=== PATIENT | female | born 1985 ===

== ENCOUNTER 2020-03-16 16:58 | Outpatient (REF) | payer OTHER, SELFPAY | END 2020-03-16 16:59 | disposition home or self-care (01) | LOC: HO.LAB 16:58 | PROVIDERS: Visit Provider Internal Medicine | DX: Z20.828 Contact with and (suspected) exposure to other viral communicable diseases (principal) | CPT/HCPCS: C9803; U0003 ==

== ENCOUNTER 2022-09-09 10:05 | Emergency (ER) | payer OTHER, SELFPAY ==
[2022-09-09 10:19] VITALS: BP 126/80; PULSE 102; RESP 18; TEMP 37.3; O2SAT 98; BMI 26.4
--- NOTE | 2022-09-09 10:24 | ED.GENADULT ---
HPI - General Adult General Chief complaint: Upper Respiratory Symptoms Stated complaint: headache, sore throat, abd pain Time Seen by Provider: 09/09/22 10:14 Source: patient Mode of arrival: ambulatory Limitations: no limitations History of Present Illness HPI narrative: Patient is a 36-year-old female presenting with 3 days of subjective fevers, body aches, fatigue, headache, sore throat, and nausea. She denies any abdominal pain or vomiting. She denies any cough or nasal congestion. Has been using throat spray as well as Tylenol with little relief. Denies any diarrhea or constipation. Denies any known sick contacts. MD complaint: Fever, body aches, sore throat Onset (ago): day(s) Quality: aching Pain Consistency: constant Associated symptoms: fever/chills, headaches and other (sore throat) Treatments prior to arrival: other (tylenol) Related Data Previous Rx's Medication Instructions Recorded acetaminophen 325 mg capsule 650 mg PO Q6H PRN fever or pain 09/09/22 #20 caps ondansetron 4 mg disintegrating 4 mg PO Q8H PRN nausea and 09/09/22 tablet vomiting #12 tabs Allergies Allergy/AdvReac Type Severity Reaction Status Date / Time oxycodone Allergy Itching Verified 09/09/22 10:21 Review of Systems Review of Systems: As per HPI. Yes all other systems are reviewed and are negative Constitutional: Constitutional: Reports as per HPI [facility] Past Medical History Medical History (Updated 09/09/22 @ 11:52 by Argentina Chi NP) No known health problems Social History Social History Alcohol intake: never Smoked in Last 30 Days: No Use of substances other than those prescribed or required for medical reasons: No Advance Directives: No Advance Directives Information Provided: No Patient : No Physical Exam ED Vital Signs: Vital Signs - 24 hr 09/09/22 10:19 Temperature 99.1 F Pulse Rate 102 H Respiratory Rate 18 Blood Pressure 126/80 Pulse Oximetry 98 Oxygen Delivery Method Room Air BMI result Body Mass Index 26.4 Vital signs have been reviewed and appear to be correct. Blood pressure normal. Heart rate slightly elevated. Respiratory rate normal. Temperature normal. Oxygen saturation normal. Const General: cooperative and no acute distress Orientation/consciousness: oriented to person, oriented to place, oriented to time and patient oriented x3 Limitations: no limitations HENMT Head: Yes normocephalic and Yes atraumatic Ears: external ears normal and TM's normal bilaterally General nose exam: Normal external nose present Face and sinus: Yes face symmetric Mouth: Normal oral and palatal mucosa present, oropharynx normal and moist mucous membranes Throat: Yes posterior oropharynx normal, Yes tonsils normal and Yes uvula midline Eyes Pupils: Equal, round and reactive pupils present Neck Neck: Yes normal visual inspection and Yes supple Resp Effort & Inspection: normal respiratory effort and able to speak in complete sentences Auscultation: clear to auscultation bilaterally Cardio Rate: regular rate Rhythm: regular rhythm Heart sounds: S1 normal heart sound present and S2 normal heart sound present GI Palpation (GI): Soft to palpation and nontender Auscultation: normoactive bowel sounds General: Yes no CVA tenderness Back/Spine/Pelvis Back: no CVA tenderness Skin General skin exam: elasticity normal and turgor normal Neuro General: oriented to person, oriented to place, oriented to time, patient oriented x3, moves all extremities, no focal motor deficits and CN's II-XI intact bilaterally Cranial nerves: Yes Equal, round and reactive pupils present Cognition (Neuro): normal cognition Extrem General: Yes full ROM, Yes no pedal edema and Yes no calf tenderness Psych Mental Status: mental status grossly normal Affect: normal affect Thought process: Normal thought process present Medications Administered Discontinued Medications Generic Name Dose Route Start Last Admin Trade Name Freq PRN Reason Stop Dose Admin Acetaminophen 975 mg 09/09/22 10:37 09/09/22 10:50 Acetaminophen 325 Mg Tablet PO 09/09/22 10:38 975 mg ONCE ONE Administration Ondansetron HCl 4 mg 09/09/22 10:37 09/09/22 10:50 Ondansetron Odt 4 Mg Tab.Rapdis TRANSLINGU 09/09/22 10:38 4 mg ONCE ONE Administration Medical Decision Making Medical Decision Making MDM Narrative: Patient is a 36-year-old female presenting with 3 days of subjective fevers, body aches, fatigue, headache, sore throat, and nausea. On exam patient is awake, A+Ox3, normal neurological exam without focal deficits, oropharynx normal, LS CTA throughout, ABD SNT. Concern for viral illness including Covid, influenza, RSV as well as strep pharyngitis. No meningismus. Less likely pneumonia, UTI/pyelonephritis. Will obtain Covid/flu/RSV and strep swabs, medicate with Tylenol and ondansetron. Covid, flu, RSV, and strep all negative, patient updated on results. Patient reports improvement in symptoms after Tylenol. Feel patient is stable for discharge home. Advised to alternate Tylenol and ibuprofen as needed for fever. Prescribed ondansetron as needed for nausea. Instructed patient to follow-up with PCP within the next 2 days. Return precautions discussed at bedside. All questions answered and patient verbalized understanding of plan. Differential Diagnosis Differential Diagnoses: The differential diagnosis associated with the presentation includes As above. Lab Data MDM Lab Attestation statement: I reviewed the patient's lab results. Labs: Lab Results 09/09/22 09/09/22 Range/Units 10:43 10:43 Influenza Type A (PCR) NEGATIVE (Negative) Influenza Type B (PCR) NEGATIVE (Negative) RSV RNA Qual (PCR) NEGATIVE (Negative) SARS-CoV-2 RNA (RT-PCR) NEGATIVE (Negative) S. pyogenes GrpA MARCO A Negative (Negative) External Record Review External record reviewed: Inpatient record, Office record and Outpatient record Prescription Management I considered prescription management with: Pain Medication Discharge Plan Discharge Clinical Impression: Viral infection Pharyngitis Qualifiers: Pharyngitis/tonsillitis etiology: unspecified etiology Qualified Code(s): J02.9 - Acute pharyngitis, unspecified Patient Disposition: Home, Self-Care Instructions: Pharyngitis (ED), Viral Syndrome (ED) Additional Instructions: You have been evaluated in the emergency department today for your sore throat, fever and body aches. Your evaluation suggests that your symptoms are likely due to a illness which should resolve in a few days with rest and fluids. You can take 650 mg Tylenol or 600 mg ibuprofen as needed for pain or fever. If necessary, you can alternate these medications every 3 hours. For example, at noon you can take ibuprofen, then at 3:00 p.m. you can take Tylenol, then at 6:00 p.m. you can take ibuprofen. Please follow-up with your primary care provider within 2 days. Return to the emergency department if you experience worsening or uncontrolled pain, difficulty swallowing, difficulty breathing, fevers 100.4? F or greater, recurrent vomiting, or any other concerning symptoms. Prescriptions: New ondansetron 4 mg tablet,disintegrating 4 mg PO Q8H PRN (Reason: nausea and vomiting) Qty: 12 0RF acetaminophen 325 mg capsule 650 mg PO Q6H PRN (Reason: fever or pain) Qty: 20 0RF
--- OUTSIDE RECORDS SUMMARY | 2022-09-09 10:41 | XMS_ITS | Continuity of Care Document ---
Author Name Unknown Organization [facility] Address [address] [place] [address]- Care Team Providers Care Greens Keeper Name Role Post Office ManagerFelix Denise MD Primary Care Physician [phone] Encounter [facility] Date(s): 11/18/20 - 11/25/20 [facility] [address], [place] [address] Encounter Diagnosis Acute cystitis(Discharge Diagnosis) - 11/18/20 Vaginal discharge(Discharge Diagnosis) - 11/18/20 Attending Physician: Ellis Penaloza DO Referring Physician: Felix Denise MD Allergies, Adverse Reactions, Alerts Substance Reaction Severity Status Rocephin Active oxyCODONE 1 Active 1itchy Immunizations Given and Recorded Vaccine Date Status Refusal Reason SARS-CoV-2 (COVID-19) mRNA BNT-162b2 vac 08/18/20 Recorded SARS-CoV-2 (COVID-19) mRNA BNT-162b2 vac 07/28/20 Recorded influenza virus vaccine, inactivated 04/28/16 Give n influenza virus vaccine, inactivated 02/18/15 Give n tetanus/diphtheria/pertussis, acel(Tdap) 07/16/15 Given Not Given Vaccine Date Status Refusal Reason influenza virus vaccine, inactivated 05/03/20 Not Given Patient Refuses pneumococcal 23-valent vaccine 05/03/20 Not Given Patient Refuses Medications acetaminophen/butalbital/caffeine 300 mg-50 mg-40 mg oral capsule 1 capsule, By Mouth, Every 4 hours, PRN NEEDED, # 10 capsule, 0 Refills, Maintenance, 09/23/20 15:01:00 EDT, [facility] #[id number], 1 capsule By Mouth Every 4 hours,PRN: NEEDED, 150, cm, 09/23/20 13:41:00 EDT, Height, 60.8, kg, 08/05/20 11:... Start Date: 09/23/20 Status: Ordered amitriptyline 25 mg oral tablet 50 mg, 2, tablet, By Mouth, Daily at bedtime, # 180 tablet, Refills 3, Tot. Refills 3, Maintenance,10/23/20 13:21:00 EDT, Route to Pharmacy Electronically, [facility] #[id number], 150, cm, 10/23/20 13:15:00 EDT, Height, 60.8, kg, 08/05/20 11:45:... Start Date: 10/23/20 Stop Date: 10/18/21 Status: Ordered cholecalciferol 2000 intl units oral capsule 1 capsule = 2,000 International_Units, By Mouth, Daily, # 90 capsule, 1 Refills, Maintenance, 01/28/20 7:32:00 EDT, Capsule, [facility] #[id number], 152.4, cm, 01/22/20 11:23:00 EDT, Height, 61.5, kg, 02/21/19 10:49:00 EST, Dry Weight Start Date: 01/28/20 Stop Date: 07/26/20 Status: Ordered Flonase 50 mcg/inh nasal spray 1 sprays, Nares, Both, 2 times a day, # 16 Gm, 2 Refills, Maintenance, 10/23/20 13:21:00 EDT, [place], [facility] #[id number], Partial fill upon patient request if the prescription is for a schedule II opioid drug., 1 sprays Nares, Both 2 times a d... Start Date: 10/23/20 Status: Ordered MiraLax oral powder for reconstitution = 17 Gm, By Mouth, Daily, dissolve in water before taking, # 255 Gm, 0 Refills, Maintenance, 10/23/20 13:22:00 EDT, REC Powder, [facility] #[id number], Partial fill upon patient request if the prescription is for a schedule II opioid drug., 17 Gm... Start Date: 10/23/20 Status: Ordered naproxen 500 mg oral delayed release tablet 1 tablet = 500 mg, By Mouth, 2 times a day, # 60 tablet, 2 Refills, Maintenance, 10/23/20 13:21:00 EDT, EC Tablet, [facility] #[id number], Partial fill upon patient request if the prescription is for a schedule II opioid drug., 150, cm, 10/23/20... Start Date: 10/23/20 Status: Ordered omeprazole 40 mg oral enteric coated capsule 1 capsule, By Mouth, 2 times a day, # 60 capsule, 1 Refills, Maintenance, 10/23/20 13:22:00 EDT, [facility] #[id number], 150, cm, 10/23/20 13:15:00 EDT, Height, 60.8, kg, 08/05/20 11:45:00 EDT, Dry Weight Start Date: 10/23/20 Status: Ordered propranolol 60 mg oral capsule, extended release 60 mg, 1, capsule, By Mouth, Daily, # 30 capsule, Refills 1, Tot. Refills 1, Maintenance, 10/23/20 13:54:00 EDT, Route to Pharmacy Electronically, [facility] #[id number], Partial fill upon patient request if the prescription is for a schedule II... Start Date: 10/23/20 Status: Ordered propranolol 60 mg oral capsule, extended release See Instructions, TAKE 1 CAPSULE BY MOUTH DAILY, # 90 capsule, Refills 0, Maintenance, InstructionsReplace Required Details, Route to Pharmacy Electronically, [facility] #[id number], 150, cm, 10/23/20 13:44:00 EDT, Height, 60.8, kg, 08/05/20 11:... Start Date: 10/23/20 Status: Ordered SUMAtriptan 25 mg oral tablet 1 tablet = 25 mg, By Mouth, Once, At onset of headache. May repeat in 2 hours, # 18 tablet, 0 Refills, Soft Stop, 10/23/20 13:55:00 EDT, Tablet, [facility] #[id number], Partial fill upon patientrequest if the prescription is for a schedule II op... Start Date: 10/23/20 Status: Ordered Tylenol 325 mg oral capsule 2 capsule = 650 mg, By Mouth, Every 4 hours, PRN as needed for fever, # 90 capsule, 0 Refills, Maintenance, 10/23/20 13:20:00 EDT, Capsule, [facility] #[id number], Partial fill upon patient request if the prescription is for a schedule II opioid... Start Date: 10/23/20 Status: Ordered ZyrTEC 10 mg oral tablet 1 tablet = 10 mg, By Mouth, Daily, # 30 tablet, 3 Refills, Maintenance, 10/23/20 13:21:00 EDT, Tablet, [facility] #[id number], 150, cm, 10/23/20 13:15:00 EDT, Height, 60.8, kg, 08/05/20 11:45:00EDT, Dry Weight Start Date: 10/23/20 Status: Ordered Problem List Condition Effective Dates Status Health Status Inform ant Back pain(Confirmed) Active Renal stones(Confirmed) Active Migraine(Confirmed) Active Diagnosis Diagnosis Type Effective Dates Health Status Cl inical Service Informant Acute cystitis Discharge Diagnosis 11/18/20 Vaginal discharge Discharge Diagnosis 11/18/20 Vital Signs Most recent to oldest [Reference Range]: 1 Height 150 cm (11/18/20 4:25 PM) Weight 60.2 kg (11/18/20 4:25 PM) Oxygen Saturation [94-100 %] 100 % (11/18/20 4:25 PM) Pulse Rate [55-90 bpm] 81 bpm (11/18/20 4:25 PM) Body Mass Index [18.5-24.99] 26.76 *H* (11/18/20 4:25 PM) Blood Pressure [90-138/55-84 mm Hg] 147/ 90mm Hg *H* (11/18/20 4:25 PM) Temperature [96.8-100.4 DegF] 98.7 DegF (11/18/20 4:25 PM) Mode of Delivery (Oxygen) Room air (11/18/20 4:25 PM) Blood pressure sites Arm, right (11/18/20 4:25 PM) Temperature Route Temporal (11/18/20 4:25 PM) Dry Weight 60.2 kg (11/18/20 4:25 PM) Weight Obtained Via Standing scale (11/18/20 4:25 PM) Dry Weight Obtained Via Standing scale (11/18/20 4:25 PM) Social History Social History Type Response Smoking Status Never smoker entered on: 07/28/15 Sex Female
--- OUTSIDE RECORDS SUMMARY | 2022-09-09 10:41 | XMS_ITS | Continuity of Care Document ---
Author Name Unknown Organization [facility] Address [address] [place] [address]- Care Team Providers Care Sheep Sorter Name Role Phone Prior Wesly GRAYSON Primary Care Physician Encounter [facility] Date(s): 03/23/20 - 04/22/[address] [address]- Allergies, Adverse Reactions, Alerts Substance Reaction Severity Status NKA Active Immunizations Given and Recorded Vaccine Date Status Refusal Reason influenza virus vaccine, inactivated 04/28/16 Give n influenza virus vaccine, inactivated 02/18/15 Give n tetanus/diphtheria/pertussis, acel(Tdap) 07/16/15 Given Medications acetaminophen/butalbital/caffeine 300 mg-50 mg-40 mg oral capsule 1 capsule, By Mouth, Every 4 hours, PRN NEEDED, # 20 capsule, 0 Refills, Maintenance, 04/26/20 18:43:00 EST, [id number], 1 capsule By Mouth Every 4 hours,PRN: NEEDED, 152.4, cm,01/22/20 11:23:00 EDT, Height, 61.5, kg, 02/21/19 1... Start Date: 04/26/20 Status: Ordered acetaminophen/butalbital/caffeine 300 mg-50 mg-40 mg oral capsule 1 capsule, By Mouth, Every 4 hours, PRN NEEDED, for 30 days, appt needed for refill; 1 to 2 tablets or capsules every 4 hours as needed; not to exceed 6 tablets or capsules daily., # 2 capsule, 0 Refills, Acute 04/26/20 18:43:00 EST, 03/27/20 18:43... Start Date: 03/27/20 Stop Date: 04/26/20 Status: Ordered amitriptyline 25 mg oral tablet 50 mg, 2, tablet, By Mouth, Daily at bedtime, # 180 tablet, Refills 3, Tot. Refills 3, Maintenance,03/22/20 17:53:00 EST, Route to Pharmacy Electronically, [facility] #[id number], 152.4, cm, 01/22/20 11:23:00 EDT, Height, 61.5, kg, 02/21/19 10:4... Start Date: 03/22/20 Stop Date: 03/17/21 Status: Ordered [place] Saline Mist 0.65% nasal spray 2 sprays, Nares, Both, 4 times a day, # 45 mL, 0 Refills, Maintenance, 03/19/20 10:33:00 EST, [facility] #[id number], Partial fill upon patient request if the prescription is for a schedule II opioid drug., 2 sprays Nares, Both 4 times a day, 152... Start Date: 03/19/20 Status: Ordered cholecalciferol 2000 intl units oral capsule 1 capsule = 2,000 International_Units, By Mouth, Daily, # 90 capsule, 1 Refills, Maintenance, 01/28/20 7:32:00 EDT, Capsule, [facility] #[id number], 152.4, cm, 01/22/20 11:23:00 EDT, Height, 61.5, kg, 02/21/19 10:49:00 EST, Dry Weight Start Date: 01/28/20 Stop Date: 07/26/20 Status: Ordered dextromethorphan-guaifenesin 10 mg-200 mg/5 mL oral liquid 5 mL, By Mouth, Every 6 hours, PRN for cough, # 200 mL, 0 Refills, Maintenance, 03/19/20 10:35:00 EST, [place], [facility] #[id number], Partial fill upon patient request if the prescription is for a schedule II opioid drug., 5 mL By Mouth Every 6... Start Date: 03/19/20 Status: Ordered ibuprofen 200 mg oral tablet 400 mg, 2, tablet, By Mouth, Every 6 hours, # 100 tablet, Refills 0, Tot. Refills 0, Maintenance, 03/19/20 10:32:00 EST, Route to Pharmacy Electronically, [facility] #[id number], Partial fill upon patient request if the prescription is for a sche... Start Date: 03/19/20 Status: Ordered omeprazole 40 mg oral enteric coated capsule 1 capsule = 40 mg, By Mouth, 2 times a day, # 60 capsule, 2 Refills, Maintenance, 03/25/20 9:29:00 EST, CR Capsule, [facility] #[id number], 152.4, cm, 01/22/20 11:23:00 EDT, Height, 61.5, kg, 02/21/19 10:49:00 EST, Dry Weight Start Date: 03/25/20 Stop Date: 06/23/20 Status: Ordered ondansetron 4 mg oral tablet 1 tablet = 4 mg, By Mouth, Every 8 hours, # 90 tablet, 0 Refills, Maintenance, 03/30/20 9:51:00 EST, Tablet, [facility] #[id number], Partial fill upon patient request if the prescription is for a schedule II opioid drug., 152.4, cm, 01/22/20 11:2... Start Date: 03/30/20 Status: Ordered Tylenol 325 mg oral capsule 2 capsule = 650 mg, By Mouth, Every 4 hours, PRN as needed for fever, # 90 capsule, 0 Refills, Maintenance, 03/19/20 10:31:00 EST, Capsule, [facility] #[id number], Partial fill upon patient request if the prescription is for a schedule II opioid... Start Date: 03/19/20 Status: Ordered ZyrTEC 10 mg oral tablet 1 tablet = 10 mg, By Mouth, Daily, # 30 tablet, 3 Refills, Maintenance, 09/30/19 14:57:00 EDT, Tablet, [facility] #[id number], 152.4, cm, 04/09/19 11:38:00 EST, Height, 61.5, kg, 02/21/19 10:49:00 EST, Dry Weight Start Date: 09/30/19 Status: Ordered Problem List Condition Effective Dates Status Health Status Inform ant Back pain(Confirmed) Active Renal stones(Confirmed) Active Migraine(Confirmed) Active Social History Social History Type Response Smoking Status Never smoker entered on: 07/28/15 Sex Female
--- OUTSIDE RECORDS SUMMARY | 2022-09-09 10:41 | XMS_ITS | Continuity of Care Document ---
Author Name Unknown Organization [facility] ter Address [address] [place] [id number]- Care Team Providers Care Greenhouse Assistant Name Role Phone Prior Wesly GRAYSON Primary Care Physician [phone] En[place] [facility] [id number] Date(s): 05/08/20 - 05/09/[address] [address]- Encounter Diagnosis Pelvic inflammatory disease(Final) - 05/09/20 Discharge Disposition: A-D/C Home Attending Physician: Wanda Briones MD Admitting Physician: Wanda Briones MD Referring Physician: Not on Staff, Referring MD Allergies, Adverse Reactions, Alerts Substance Reaction [...] 20 capsule, 0 Refills, Maintenance, 04/26/20 18:43:00 [facility], [facility] #[id number], 1 capsule By Mouth Every 4 hours,PRN: NEEDED, 152.4, cm,01/22/20 11:23:00 EDT, Height, 61.5, kg, 02/21/19 1... Start Date: 04/26/20 Status: Ordered amitriptyline 25 mg oral tablet 50 mg, 2, tablet, By Mouth, Daily at bedtime, # 180 tablet, Refills 3, Tot. Refills 3, Maintenance,03/22/20 17:53:00 EST, Route to Pharmacy Electronically, [facility] #[id number], 152.4, cm, 01/22/20 11:23:00 EDT, Height, 61.5, kg, 02/21/19 10:4... Start Date: 03/22/20 Stop Date: 03/17/21 Status: Ordered [place] Saline Mist 0.65% nasal spray 2 sprays, Nares, Both, 4 times a day, # 45 mL, 0 Refills, Maintenance, 03/19/20 10:33:00 EST, [facility] #[id number], Partial fill upon patient request if the prescription is for a schedule II opioid drug., 2 sprays Nares, Both 4 times a day, 152... Start Date: 03/19/20 Status: Ordered cholecalciferol 2000 intl units oral capsule 1 capsule = 2,000 International_Units, By Mouth, Daily, # 90 capsule, 1 Refills, Maintenance, 01/28/20 7:32:00 EDT, Capsule, [facility] #[id number], 152.4, cm, 01/22/20 11:23:00 EDT, Height, 61.5, kg, 02/21/19 10:49:00 EST, Dry Weight Start Date: 01/28/20 Stop Date: 07/26/20 Status: Ordered dextromethorphan-guaifenesin 10 mg-200 mg/5 mL oral liquid 5 mL, By Mouth, Every 6 hours, PRN for cough, # 200 mL, 0 Refills, Maintenance, 03/19/20 10:35:00 EST, Liquid, [facility] #[id number], Partial fill upon patient request if the prescription is for a schedule II opioid drug., 5 mL By Mouth Every 6... Start Date: 03/19/20 Status: Ordered doxycycline hyclate 100 mg oral capsule 1 capsule = 100 mg, By Mouth, 2 times a day, for 14 days, # 28 capsule, 0 Refills, Acute 05/23/20 1:06:00 EST, 05/09/20 1:06:00 EST, Capsule, [facility] #[id number], Partial fill upon patient request if the prescription is for a schedule II opioi... Start Date: 05/09/20 Stop Date: 05/23/20 Status: Ordered ibuprofen 200 mg oral tablet 400 mg, 2, tablet, By Mouth, Every 6 hours, # 100 tablet, Refills 0, Tot. Refills 0, Maintenance, 03/19/20 10:32:00 EST, Route to Pharmacy Electronically, [facility] #[id number], Partial fill upon patient request if the prescription is for a sche... Start Date: 03/19/20 Status: Ordered levoFLOXacin 750 mg oral tablet 1 tablet = 750 mg, By Mouth, Every 24 hours, for 5 days, # 5 tablet, 0 Refills, Acute 05/10/20 9:00:00 EST, 05/05/20 9:00:00 EST, Tablet, [facility] #[id number], Partial fill upon patient request if the prescription is for a schedule II opioid dr... Start Date: 05/05/20 Stop Date: 05/10/20 Status: Ordered metroNIDAZOLE 500 mg oral tablet 1 tablet = 500 mg, By Mouth, Every 12 hours, for 14 days, # 28 tablet, 0 Refills, Acute 05/23/20 1:07:00 EST, 05/09/20 1:07:00 EST, Tablet, [facility] #[id number], Partial fill upon patient request if the prescription is for a schedule II opioid... Start Date: 05/09/20 Stop Date: 05/23/20 Status: Ordered MiraLax oral powder for reconstitution = 17 Gm, By Mouth, Daily, dissolve in water before taking, # 255 Gm, 0 Refills, Maintenance, 05/04/20 12:19:00 EST, REC Powder, [facility] #[id number], Partial fill upon patient request if the prescription is for a schedule II opioid drug., 17 Gm... Start Date: 05/04/20 Status: Ordered MorPHINE REGULAR STRENGTH 2 mg/mL Liquid 10 mg, Solution, By Mouth, Once, STAT, 05/08/20 22:26:00 EST, Stop date 05/08/20 22:26:00 EST Start Date: 05/08/20 Stop Date: 05/08/20 Status: Completed omeprazole 40 mg oral enteric coated capsule 1 capsule = 40 mg, By Mouth, 2 times a day, # 60 capsule, 2 Refills, Maintenance, 03/25/20 9:29:00 EST, CR Capsule, [facility] #[id number], 152.4, cm, 01/22/20 11:23:00 EDT, Height, 61.5, kg, 02/21/19 10:49:00 EST, Dry Weight Start Date: 03/25/20 Stop Date: 06/23/20 Status: Ordered ondansetron 4 mg oral tablet, disintegrating 1 tablet = 4 mg, By Mouth, Every 8 hours, PRN as needed for nausea/vomiting, # 30 tablet, 0 Refills, Maintenance, 04/28/20 5:09:00 EST, DIS Tablet, [facility] #[id number], Partial fill upon patient request if the prescription is for a schedule II... Start Date: 04/28/20 Stop Date: 05/05/20 Status: Ordered traMADol 50 mg oral tablet 1 tablet = 50 mg, By Mouth, Every 6 hours, PRN Pain , Severe, for 3 days, TAKE 1 TABLET BY MOUTH EVERY 6 HOURS FOR 3 DAYS NEEDED FOR PAIN, # 12 tablet, 0 Refills, Acute 05/11/20 7:59:00 EST, 05/08/20 7:59:00 EST, Tablet, [facility] #[id number]... Start Date: 05/08/20 Stop Date: 05/11/20 Status: Ordered Tylenol 325 mg oral capsule 2 capsule = 650 mg, By Mouth, Every 4 hours, PRN as needed for fever, # 90 capsule, 0 Refills, Maintenance, 03/19/20 10:31:00 EST, Capsule, [facility] #[id number], Partial fill upon patient request if the prescription is for a schedule II opioid... Start Date: 03/19/20 Status: Ordered ZyrTEC 10 mg oral tablet 1 tablet = 10 mg, By Mouth, Daily, # 30 tablet, 3 Refills, Maintenance, 09/30/19 14:57:00 EDT, Tablet, [facility] #[id number], 152.4, cm, 04/09/19 11:38:00 EST, Height, 61.5, kg, 02/21/19 10:49:00 EST, Dry Weight Start Date: 09/30/19 Status: Ordered Problem List Condition Effective Dates Status Health Status Inform ant Back pain(Confirmed) Active COVID-19(Confirmed) 1, 2 Active Renal stones(Confirmed) Active Migraine(Confirmed) Active 1clinical diagnosis March 2020; unconfirmed by testing, see external record [id number]: Resolved due to 21 days post identification. Results Orders for Microbiology Reports Name Date Wet Prep 05/08/20 Microbiology Reports TEST:Wet Prep STATUS:Modified/Amended/Corrected BODY SITE: SOURCE:VAGINA COLLECTED DATE/TIME:05/08/20 11:50 PM Wet Prep SPECIMEN DESCRIPTION : VAGINAL SPECIMEN SPECIAL REQUESTS : NONE DIRECT EXAM : 4+ WHITE BLOOD CELLS 2+ CLUE CELLS NO YEAST OBSERVED NO TRICHOMONAS OBSERVED REPORT STATUS : FINAL 05/09/2020 Vital Signs Most recent to oldest [Reference Range]: 1 2 3 Oxygen Saturation [94-100 %] 99 % (05/09/20 1:28 AM) 98 % (05/08/20 11:16 PM) 98 % (05/08/20 7:40 PM) Pulse Rate [55-90 bpm] 109 bpm *H* (05/09/20 1:28 AM) 90 bpm (05/08/20 11:16 PM) 100 bpm *H* (05/08/20 7:40 PM) Blood Pressure [90-138/55-84 mm Hg] 140/89mm Hg *H* (05/09/20 1:28 AM) 122/76mm Hg (05/08/20 11:16 PM) 132/87mm Hg (05/08/20 7:40 PM) Respiratory Rate [16-30 br/min] 18 br/min (05/09/20 1:28 AM) 16 br/min (05/08/20 11:40 PM) 18 br/min (05/08/20 11:16 PM) Temperature [96.8-100.4 DegF] 97.8 DegF (05/09/20 1:28 AM) 98.1 DegF (05/08/20 11:16 PM) 98.1 DegF (05/08/20 7:40 PM) Mode of Delivery (Oxygen) Room air (05/09/20 1:28 AM) Room air (05/08/20 11:16 PM) Room air (05/08/20 7:40 PM) Blood pressure sites Arm, left (05/09/20 1:28 AM) Arm, left (05/08/20 11:16 PM) Arm, left (05/08/20 7:40 PM) Temperature Route Oral (05/09/20 1:28 AM) Oral (05/08/20 11:16 PM) Oral (05/08/20 7:40 PM) Social History Social History Type Response Smoking Status Never smoker entered on: 07/28/15 Sex Female
--- OUTSIDE RECORDS SUMMARY | 2022-09-09 10:42 | XMS_ITS | Continuity of Care Document ---
Author Name Unknown Organization [facility] Address [address] [place] [address]- Care Team Providers Care Art Objects Salesperson Name Role Senior Finance ManagerFelix Denise MD Primary Care Physician Encounter [facility] [place] Date(s): 10/26/20 - 11/25/[address] [address] Allergies, Adverse Reactions, Alerts Substance Reaction Severity [...] capsule, 0 Refills, Maintenance, 09/23/20 15:01:00 EDT, [facility] #[id number], 1 capsule By Mouth Every 4 hours,PRN: NEEDED, 150, cm, 09/23/20 13:41:00 EDT, Height, 60.8, kg, 08/05/20 11:... Start Date: 09/23/20 Status: Ordered amitriptyline 25 mg oral tablet 50 mg, 2, tablet, By Mouth, Daily at bedtime, # 180 tablet, Refills 3, Tot. Refills 3, Maintenance,10/23/20 13:21:00 EDT, Route to Pharmacy Electronically, [facility] #[id number], 150, cm, 10/23/20 13:15:00 EDT, Height, 60.8, kg, 08/05/20 11:45:... Start Date: 10/23/20 Stop Date: 10/18/21 Status: Ordered cholecalciferol 2000 intl units oral capsule 1 capsule = 2,000 International_Units, By Mouth, Daily, # 90 capsule, 1 Refills, Maintenance, 01/28/20 7:32:00 EDT, Capsule, [facility] #[id number], 152.4, cm, 01/22/20 11:23:00 EDT, Height, 61.5, kg, 02/21/19 10:49:00 EST, Dry Weight Start Date: 01/28/20 Stop Date: 07/26/20 Status: Ordered Flonase 50 mcg/inh nasal spray 1 sprays, Nares, Both, 2 times a day, # 16 Gm, 2 Refills, Maintenance, 10/23/20 13:21:00 EDT, [place], [facility] #[id number], Partial fill upon patient request if the prescription is for a schedule II opioid drug., 1 sprays Nares, Both 2 times a d... Start Date: 10/23/20 Status: Ordered MiraLax oral powder for reconstitution = 17 Gm, By Mouth, Daily, dissolve in water before taking, # 255 Gm, 0 Refills, Maintenance, 10/23/20 13:22:00 EDT, REC Powder, [facility] #[id number], Partial fill upon patient request if the prescription is for a schedule II opioid drug., 17 Gm... Start Date: 10/23/20 Status: Ordered naproxen 500 mg oral delayed release tablet 1 tablet = 500 mg, By Mouth, 2 times a day, # 60 tablet, 2 Refills, Maintenance, 10/23/20 13:21:00 EDT, EC Tablet, [facility] #[id number], Partial fill upon patient request if the prescription is for a schedule II opioid drug., 150, cm, 10/23/20... Start Date: 10/23/20 Status: Ordered omeprazole 40 mg oral enteric coated capsule 1 capsule, By Mouth, 2 times a day, # 60 capsule, 1 Refills, Maintenance, 10/23/20 13:22:00 EDT, [facility] #[id number], 150, cm, 10/23/20 13:15:00 EDT, Height, 60.8, kg, 08/05/20 11:45:00 EDT, Dry Weight Start Date: 10/23/20 Status: Ordered propranolol 60 mg oral capsule, extended release 60 mg, 1, capsule, By Mouth, Daily, # 30 capsule, Refills 1, Tot. Refills 1, Maintenance, 10/23/20 13:54:00 EDT, Route to Pharmacy Electronically, [facility] #[id number], Partial fill upon patient request if the prescription is for a schedule II... Start Date: 10/23/20 Status: Ordered propranolol 60 mg oral capsule, extended release See Instructions, TAKE 1 CAPSULE BY MOUTH DAILY, # 90 capsule, Refills 0, Maintenance, InstructionsReplace Required Details, Route to Pharmacy Electronically, [facility] #[id number], 150, cm, 10/23/20 13:44:00 EDT, Height, 60.8, kg, 08/05/20 11:... Start Date: 10/23/20 Status: Ordered SUMAtriptan 25 mg oral tablet 1 tablet = 25 mg, By Mouth, Once, At onset of headache. May repeat in 2 hours, # 18 tablet, 0 Refills, Soft Stop, 10/23/20 13:55:00 EDT, Tablet, [facility] #[id number], Partial fill upon patientrequest if the prescription is for a schedule II op... Start Date: 10/23/20 Status: Ordered Tylenol 325 mg oral capsule 2 capsule = 650 mg, By Mouth, Every 4 hours, PRN as needed for fever, # 90 capsule, 0 Refills, Maintenance, 10/23/20 13:20:00 EDT, Capsule, [facility] #[id number], Partial fill upon patient request if the prescription is for a schedule II opioid... Start Date: 10/23/20 Status: Ordered ZyrTEC 10 mg oral tablet 1 tablet = 10 mg, By Mouth, Daily, # 30 tablet, 3 Refills, Maintenance, 10/23/20 13:21:00 EDT, Tablet, [facility] #[id number], 150, cm, 10/23/20 13:15:00 EDT, Height, 60.8, kg, 08/05/20 11:45:00EDT, Dry Weight Start Date: 10/23/20 Status: Ordered Problem List Condition Effective Dates Status Health Status Inform ant Back pain(Confirmed) Active Renal stones(Confirmed) Active Migraine(Confirmed) Active Social History Social History Type Response Smoking Status Never smoker entered on: 07/28/15 Sex Female
--- OUTSIDE RECORDS SUMMARY | 2022-09-09 10:42 | XMS_ITS | Continuity of Care Document ---
Author Name Unknown Organization [facility] Address Unknown Care Team Providers Care Bill Clerk Name Role Telephone RepairerFelix Denise MD Primary Care Physician Encounter [facility] [place] Date(s): 08/16/21 - 09/15/21 [facility] Attending Physician: Lance Harris Admitting Physician: Lance Harris Referring Physician: Lance Harris Allergies, Adverse Reactions, Alerts Substance Reaction Severity Status Rocephin Active oxyCODONE 1 Active 1itchy Immunizations Given and Recorded Vaccine Date Status Refusal Reason influenza virus vaccine, inactivated 02/17/21 Give n influenza virus vaccine, inactivated 04/28/16 Give n influenza virus vaccine, inactivated 02/18/15 Give n SARS-CoV-2 (COVID-19) mRNA BNT-162b2 vac 08/18/20 Recorded SARS-CoV-2 (COVID-19) mRNA BNT-162b2 vac 07/28/20 Recorded tetanus/diphtheria/pertussis, acel(Tdap) 07/16/15 Given Not Given Vaccine Date Status Refusal Reason influenza virus vaccine, inactivated 05/03/20 Not Given Patient Refuses pneumococcal 23-valent vaccine 05/03/20 Not Given Patient Refuses Medications acetaminophen/butalbital/caffeine 300 mg-50 mg-40 mg oral capsule 1 capsule, By Mouth, Every 4 hours, PRN NEEDED, # 10 capsule, 3 Refills, Maintenance, 04/29/21 10:53:00 EST, [facility] #[id number], 1 capsule By Mouth Every 4 hours,PRN: NEEDED, 150, cm, 02/17/21 9:13:00 EST, Height, 60.2, kg, 11/18/20 16:2... Start Date: 04/29/21 Status: Ordered amitriptyline 25 mg oral tablet 50 mg, 2, tablet, By Mouth, Daily at bedtime, for 90 days, # 180 tablet, Refills 3, Tot. Refills 3,Hard Stop 10/18/21 13:21:00 EDT, 10/23/20 13:21:00 EDT, Route to Pharmacy Electronically, [facility] #[id number], 150, cm, 10/23/20 13:15:00 EDT,... Start Date: 10/23/20 Stop Date: 10/18/21 Status: Ordered amitriptyline 50 mg oral tablet 2 tablet = 100 mg, By Mouth, Daily at supper, dose increase, # 60 tablet, 5 Refills, Maintenance, 08/16/21 11:32:00 EDT, Tablet, [facility] #[id number], Partial fill upon patient request if the prescription is for a schedule II opioid drug., 150,... Start Date: 08/16/21 Stop Date: 02/12/22 Status: Ordered cetirizine 10 mg oral tablet 1 tablet, By Mouth, Daily, as needed for itching/allergies, # 30 tablet, 11 Refills, 04/29/21 11:04:00 EST, [facility] #[id number], 150, cm, 02/17/21 9:13:00 EST, Height, 60.2, kg, 11/18/20 16:28:00 EDT, Dry Weight Start Date: 04/29/21 Status: Ordered drospirenone-ethinyl estradiol 3 mg-0.02 mg oral tablet 1 tablet, By Mouth, Daily, Maintenance Start Date: 08/18/21 Status: Ordered fluticasone 50 mcg/inh nasal spray See Instructions, SHAKE LIQUID AND USE 1 SPRAY IN EACH NOSTRIL TWICE DAILY, # 16 Gm, 0 Refills, [facility] #[id number], 30, SHAKE LIQUID AND USE 1 SPRAY IN EACH NOSTRIL TWICE DAILY, 150, cm, 02/08/21 15:46:00 EDT, Height, 60.2, kg, 11/18/20 16:28... Start Date: 02/15/21 Status: Ordered lidocaine 5% topical film 1 patch, Topically, Daily, remove patches after 12 hours, # 30 patch, 0 Refills, Maintenance, 02/10/21 18:52:00 EDT, [facility] #[id number], Partial fill upon patient request if the prescriptionis for a schedule II opioid drug., 1 patch Topicall... Start Date: 02/10/21 Stop Date: 03/12/21 Status: Ordered lidocaine 5% topical film 1 patch, Topically, Daily, REMOVE AFTER 12 HOURS NEEDED FOR PAIN, # 13 patch, 0 Refills, [facility] #[id number], 13, APPLY 1 PATCH TOPICALLY TO AFFECTED AREA EVERY DAY. REMOVE AFTER 12 HOURS NEEDED FOR PAIN, 150, cm, 11/18/20 16:25:00 EDT,... Start Date: 02/06/21 Status: Ordered MiraLax oral powder for reconstitution = 17 Gm, By Mouth, Daily, dissolve in water before taking, # 255 Gm, 0 Refills, Maintenance, 10/23/20 13:22:00 EDT, REC Powder, [facility] #[id number], Partial fill upon patient request if the prescription is for a schedule II opioid drug., 17 Gm... Start Date: 10/23/20 Status: Ordered morphine 15 mg oral tablet, immediate release See Instructions, PRN Headache, As needed for severe migraine. Take 0.5-1 tablet (7.5-15mg) by mouth. If needed, repeat dose x 1 in 4 hours. Causes drowsiness. MA Pat Checked, appropriate, # 8 tablet, 0 Refills, Maintenance, 04/29/21 10:57:00 EST,... Start Date: 04/29/21 Status: Ordered omeprazole 40 mg oral enteric coated capsule 1 capsule, By Mouth, Daily, as needed, # 30 capsule, 11 Refills, Maintenance, 04/29/21 11:03:00 EST, [facility] #[id number], 150, cm, 02/17/21 9:13:00 EST, Height, 60.2, kg, 11/18/20 16:28:00 EDT, Dry Weight Start Date: 04/29/21 Status: Ordered omeprazole 40 mg oral enteric coated capsule See Instructions, TAKE 1 CAPSULE BY MOUTH TWICE DAILY, # 180 capsule, 0 Refills, [facility] #[id number], 150, cm, 02/17/21 9:13:00 EST, Height, 60.2, kg, 11/18/20 16:28:00 EDT, Dry Weight Start Date: 03/29/21 Status: Ordered predniSONE 10 mg oral tablet See Instructions, For acute migraine. Take with food. Day 1 = 40mg. Day 2 = 30mg. Day 3 = 20mg Day 4 = 10mg, # 10 tablet, 0 Refills, Maintenance, 04/29/21 10:56:00 EST, [facility] #[id number], Partial fill upon patient request if the prescrip... Start Date: 04/29/21 Status: Ordered SUMAtriptan 25 mg oral tablet 1 tablet = 25 mg, By Mouth, Once, At onset of headache. May repeat in 2 hours. Take with naproxen, # 9 tablet, 2 Refills, Soft Stop, 04/29/21 10:53:00 EST, Tablet, [facility] #[id number], Partial fill upon patient request if the prescription is... Start Date: 04/29/21 Status: Ordered SUMAtriptan 50 mg oral tablet 1 tablet = 50 mg, By Mouth, Daily, PRN for migraine headache, may repeat dose after 2 hours up to amax 2 tabs / 24hrs ,no more than 3 doses/week, # 9 tablet, 2 Refills, Acute 08/16/22 11:35:00 EDT, 08/16/21 11:35:00 EDT, Tablet, [facility]... Start Date: 08/16/21 Stop Date: 08/16/22 Status: Ordered Tylenol 325 mg oral capsule 2 capsule = 650 mg, By Mouth, Every 4 hours, PRN as needed for fever, # 90 capsule, 0 Refills, Maintenance, 10/23/20 13:20:00 EDT, Capsule, [facility] #[id number], Partial fill upon patient request if the prescription is for a schedule II opioid... Start Date: 10/23/20 Status: Ordered Problem List Condition Effective Dates Status Health Status Inform ant Back pain(Confirmed) Active Blood pressure elevated with out history of HTN(Confirmed) Active Headache(Confirmed) Active Renal stones(Confirmed) Active Migraine(Confirmed) Active Refractory migraine with aura(Confirmed) Active Social History Social History Type Response Smoking Status Never smoker entered on: 07/28/15 Sex
--- OUTSIDE RECORDS SUMMARY | 2022-09-09 10:42 | XMS_ITS | Continuity of Care Document ---
Author Name Unknown Organization [facility] Address [address] [place] [address]- Care Team Providers Care Care Team Assistant Name Role Labor And Delivery NurseFelix Denise MD Primary Care Physician Encounter [facility] [place] Date(s): 06/24/21 - 07/24/[address] [id number] Attending Physician: Admtr, [id number] Admitting Physician: Admtr, [id number] Referring Physician: Admtr, Ar8 Allergies, Adverse Reactions, Alerts Substance Reaction Severity [...] capsule, 3 Refills, Maintenance, 04/29/21 10:53:00 EST, [facility] #[id number], 1 capsule By Mouth Every 4 hours,PRN: NEEDED, 150, cm, 02/17/21 9:13:00 EST, Height, 60.2, kg, 11/18/20 16:2... Start Date: 04/29/21 Status: Ordered amitriptyline 25 mg oral tablet 50 mg, 2, tablet, By Mouth, Daily at bedtime, for 90 days, # 180 tablet, Refills 3, Tot. Refills 3,Hard Stop 10/18/21 13:21:00 EDT, 10/23/20 13:21:00 EDT, Route to Pharmacy Electronically, [facility] #[id number], 150, cm, 10/23/20 13:15:00 EDT,... Start Date: 10/23/20 Stop Date: 10/18/21 Status: Ordered cetirizine 10 mg oral tablet 1 tablet, By Mouth, Daily, as needed for itching/allergies, # 30 tablet, 11 Refills, 04/29/21 11:04:00 EST, [facility] #[id number], 150, cm, 02/17/21 9:13:00 EST, Height, 60.2, kg, 11/18/20 16:28:00 EDT, Dry Weight Start Date: 04/29/21 Status: Ordered fluticasone 50 mcg/inh nasal spray See Instructions, SHAKE LIQUID AND USE 1 SPRAY IN EACH NOSTRIL TWICE DAILY, # 16 Gm, 0 Refills, [facility] #[id number], 30, SHAKE LIQUID AND USE 1 SPRAY IN EACH NOSTRIL TWICE DAILY, 150, cm, 02/08/21 15:46:00 EDT, Height, 60.2, kg, 11/18/20 16:28... Start Date: 02/15/21 Status: Ordered lidocaine 5% topical film 1 patch, Topically, Daily, remove patches after 12 hours, # 30 patch, 0 Refills, Maintenance, 02/10/21 18:52:00 EDT, [facility] #[id number], Partial fill upon patient request if the prescriptionis for a schedule II opioid drug., 1 patch Topicall... Start Date: 02/10/21 Stop Date: 03/12/21 Status: Ordered lidocaine 5% topical film 1 patch, Topically, Daily, REMOVE AFTER 12 HOURS NEEDED FOR PAIN, # 13 patch, 0 Refills, [facility] #[id number], 13, APPLY 1 PATCH TOPICALLY TO AFFECTED AREA EVERY DAY. REMOVE AFTER 12 HOURS NEEDED FOR PAIN, 150, cm, 11/18/20 16:25:00 EDT,... Start Date: 02/06/21 Status: Ordered MiraLax oral powder for reconstitution = 17 Gm, By Mouth, Daily, dissolve in water before taking, # 255 Gm, 0 Refills, Maintenance, 10/23/20 13:22:00 EDT, REC Powder, [facility] #[id number], Partial fill upon patient request if the prescription is for a schedule II opioid drug., 17 Gm... Start Date: 10/23/20 Status: Ordered morphine 15 mg oral tablet, immediate release See Instructions, PRN Headache, As needed for severe migraine. Take 0.5-1 tablet (7.5-15mg) by mouth. If needed, repeat dose x 1 in 4 hours. Causes drowsiness. RADHA Cameron Checked, appropriate, # 8 tablet, 0 Refills, Maintenance, 04/29/21 10:57:00 EST,... Start Date: 04/29/21 Status: Ordered naproxen 500 mg oral tablet 1 tablet = 500 mg, By Mouth, 2 times a day, Take with food, only as needed for migraine headache., # 60 tablet, 0 Refills, Maintenance, 04/29/21 10:54:00 EST, Tablet, [facility] #[id number], Partial fill upon patient request if the prescription i... Start Date: 04/29/21 Status: Ordered omeprazole 40 mg oral enteric coated capsule 1 capsule, By Mouth, Daily, as needed, # 30 capsule, 11 Refills, Maintenance, 04/29/21 11:03:00 EST, [facility] #[id number], 150, cm, 02/17/21 9:13:00 EST, Height, 60.2, kg, 11/18/20 16:28:00 EDT, Dry Weight Start Date: 04/29/21 Status: Ordered omeprazole 40 mg oral enteric coated capsule See Instructions, TAKE 1 CAPSULE BY MOUTH TWICE DAILY, # 180 capsule, 0 Refills, [facility] #[id number], 150, cm, 02/17/21 9:13:00 EST, Height, 60.2, kg, 11/18/20 16:28:00 EDT, Dry Weight Start Date: 03/29/21 Status: Ordered predniSONE 10 mg oral tablet See Instructions, For acute migraine. Take with food. Day 1 = 40mg. Day 2 = 30mg. Day 3 = 20mg Day 4 = 10mg, # 10 tablet, 0 Refills, Maintenance, 04/29/21 10:56:00 EST, [facility] #[id number], Partial fill upon patient request if the prescrip... Start Date: 04/29/21 Status: Ordered SUMAtriptan 25 mg oral tablet 1 tablet = 25 mg, By Mouth, Once, At onset of headache. May repeat in 2 hours. Take with naproxen, # 9 tablet, 2 Refills, Soft Stop, 04/29/21 10:53:00 EST, Tablet, [facility] #[id number], Partial fill upon patient request if the prescription is... Start Date: 04/29/21 Status: Ordered Tylenol 325 mg oral capsule 2 capsule = 650 mg, By Mouth, Every 4 hours, PRN as needed for fever, # 90 capsule, 0 Refills, Maintenance, 10/23/20 13:20:00 EDT, Capsule, [facility] #[id number], Partial fill upon patient request if the [...]
--- OUTSIDE RECORDS SUMMARY | 2022-09-09 10:42 | XMS_ITS | Continuity of Care Document ---
Author Name Unknown Organization [facility] Address Unknown Care Team Providers Care Galvanizer Name Role Divine HealerFelix wills MD Primary Care Physician Encounter [facility] [place] ACCT R [id number] Date(s): 04/28/21 - 05/28/21 [facility] Allergies, Adverse Reactions, Alerts Substance Reaction Severity [...] capsule, 3 Refills, Maintenance, 04/29/21 10:53:00 EST, [facility] #[id number], 1 capsule By Mouth Every 4 hours,PRN: NEEDED, 150, cm, 02/17/21 9:13:00 EST, Height, 60.2, kg, 11/18/20 16:2... Start Date: 04/29/21 Status: Ordered amitriptyline 25 mg oral tablet 50 mg, 2, tablet, By Mouth, Daily at bedtime, for 90 days, # 180 tablet, Refills 3, Tot. Refills 3,Hard Stop 10/18/21 13:21:00 EDT, 10/23/20 13:21:00 EDT, Route to Pharmacy Electronically, [facility] #[id number], 150, cm, 10/23/20 13:15:00 EDT,... Start Date: 10/23/20 Stop Date: 10/18/21 Status: Ordered cetirizine 10 mg oral tablet 1 tablet, By Mouth, Daily, as needed for itching/allergies, # 30 tablet, 11 Refills, 04/29/21 11:04:00 EST, [facility] #[id number], 150, cm, 02/17/21 9:13:00 EST, Height, 60.2, kg, 11/18/20 16:28:00 EDT, Dry Weight Start Date: 04/29/21 Status: Ordered fluticasone 50 mcg/inh nasal spray See Instructions, SHAKE LIQUID AND USE 1 SPRAY IN EACH NOSTRIL TWICE DAILY, # 16 Gm, 0 Refills, [facility] #[id number], 30, SHAKE LIQUID AND USE 1 SPRAY IN EACH NOSTRIL TWICE DAILY, 150, cm, 02/08/21 15:46:00 EDT, Height, 60.2, kg, 11/18/20 16:28... Start Date: 02/15/21 Status: Ordered lidocaine 5% topical film 1 patch, Topically, Daily, remove patches after 12 hours, # 30 patch, 0 Refills, Maintenance, 02/10/21 18:52:00 EDT, [facility] #[id number], Partial fill upon patient request if the prescriptionis for a schedule II opioid drug., 1 patch Topicall... Start Date: 02/10/21 Stop Date: 03/12/21 Status: Ordered lidocaine 5% topical film 1 patch, Topically, Daily, REMOVE AFTER 12 HOURS NEEDED FOR PAIN, # 13 patch, 0 Refills, [facility] #[id number], 13, APPLY 1 PATCH TOPICALLY TO AFFECTED AREA EVERY DAY. REMOVE AFTER 12 HOURS NEEDED FOR PAIN, 150, cm, 11/18/20 16:25:00 EDT,... Start Date: 02/06/21 Status: Ordered MiraLax oral powder for reconstitution = 17 Gm, By Mouth, Daily, dissolve in water before taking, # 255 Gm, 0 Refills, Maintenance, 10/23/20 13:22:00 EDT, REC Powder, [facility] #[id number], Partial fill upon patient request if the [...] 0 Refills, Maintenance, 04/29/21 10:54:00 EST, Tablet, [facility] #[id number], Partial fill upon patient request if the prescription i... Start Date: 04/29/21 Status: Ordered omeprazole 40 mg oral enteric coated capsule 1 capsule, By Mouth, Daily, as needed, # 30 capsule, 11 Refills, Maintenance, 04/29/21 11:03:00 EST, [facility] #[id number], 150, cm, 02/17/21 9:13:00 EST, Height, 60.2, kg, 11/18/20 16:28:00 EDT, Dry Weight Start Date: 04/29/21 Status: Ordered omeprazole 40 mg oral enteric coated capsule See Instructions, TAKE 1 CAPSULE BY MOUTH TWICE DAILY, # 180 capsule, 0 Refills, [facility] #[id number], 150, cm, 02/17/21 9:13:00 EST, Height, 60.2, kg, 11/18/20 16:28:00 EDT, Dry Weight Start Date: 03/29/21 Status: Ordered predniSONE 10 mg oral tablet See Instructions, For acute migraine. Take with food. Day 1 = 40mg. Day 2 = 30mg. Day 3 = 20mg Day 4 = 10mg, # 10 tablet, 0 Refills, Maintenance, 04/29/21 10:56:00 EST, [facility] #[id number], Partial fill upon patient request if the prescrip... Start Date: 04/29/21 Status: Ordered SUMAtriptan 25 mg oral tablet 1 tablet = 25 mg, By Mouth, Once, At onset of headache. May repeat in 2 hours. Take with naproxen, # 9 tablet, 2 Refills, Soft Stop, 04/29/21 10:53:00 EST, Tablet, [facility] #[id number], Partial fill upon patient request if the prescription is... Start Date: 04/29/21 Status: Ordered Tylenol 325 mg oral capsule 2 capsule = 650 mg, By Mouth, Every 4 hours, PRN as needed for fever, # 90 capsule, 0 Refills, Maintenance, 10/23/20 13:20:00 EDT, Capsule, [facility] #[id number], Partial fill upon patient request if the [...]
--- OUTSIDE RECORDS SUMMARY | 2022-09-09 10:42 | XMS_ITS | Continuity of Care Document ---
Author Name Unknown Organization [facility] Address [address] [place] [address]- Care Team Providers Care Certified Public Accountant Name Role Silk Screen Layout DrafterFelix Denise MD Primary Care Physician [phone] Encounter [facility] [place] [facility] [id number] Date(s): 08/02/22 - 09/01/[address] [id number] Attending Physician: Admtr, Ar8 Admitting Physician: Admtr, Ar8 Referring Physician: Admtr, [...] capsule, 3 Refills, Maintenance, 04/29/21 10:53:00 EST, [facility] #[id number], 1 capsule By Mouth Every 4 hours,PRN: NEEDED, 150, cm, 02/17/21 9:13:00 EST, Height, 60.2, kg, 11/18/20 16:2... Start Date: 04/29/21 Status: Ordered amitriptyline 50 mg oral tablet 1.5 tablet = 75 mg, By Mouth, Daily at supper, # 45 tablet, 6 Refills, Maintenance, 06/10/22 10:30:00 EST, Tablet, [facility] #[id number], Partial fill upon patient request if the prescription is for a schedule II opioid drug., 150, cm, 04/21/22... Start Date: 06/10/22 Stop Date: 01/06/23 Status: Ordered Blood Pressure Monitor See Instructions, # 1 each, Maintenance, to check blood pressure daily for medication titration Dx:essential hypertension ICD10: I10 duration: 52 weeks, 10/27/21 11:33:00 EDT, Supply Start Date: 10/27/21 Status: Ordered cetirizine 10 mg oral tablet 1 tablet, By Mouth, Daily, as needed for itching/allergies, # 30 tablet, 11 Refills, 04/29/21 11:04:00 EST, [facility] #[id number], 150, cm, 02/17/21 9:13:00 EST, Height, 60.2, kg, 11/18/20 16:28:00 EDT, Dry Weight Start Date: 04/29/21 Status: Ordered fluticasone 50 mcg/inh nasal spray See Instructions, SHAKE LIQUID AND USE 1 SPRAY IN EACH NOSTRIL TWICE DAILY, # 16 Gm, 0 Refills, [facility] #[id number], 30, SHAKE LIQUID AND USE 1 SPRAY IN EACH NOSTRIL TWICE DAILY, 150, cm, 02/08/21 15:46:00 EDT, Height, 60.2, kg, 11/18/20 16:28... Start Date: 02/15/21 Status: Ordered lidocaine 2% topical gel with applicator 3 application, Topically, 3 times a day, PRN Pain , Mild, # 2 each, 0 Refills, Soft Stop, 04/21/22 8:51:00 EST, Gel, [facility] #[id number], Please give patient 1 month supply of topical lidocaine gel. Any formulatioon/strength that is covered by... Start Date: 04/21/22 Status: Ordered MiraLax oral powder for reconstitution = 17 Gm, By Mouth, Daily, dissolve in water before taking, # 255 Gm, 1 Refills, Maintenance, 04/21/22 8:56:00 EST, REC Powder, [facility] #[id number], Partial fill upon patient request if the prescription is for a schedule II opioid drug., 17 Gm... Start Date: 04/21/22 Status: Ordered omeprazole 40 mg oral enteric coated capsule 1 capsule, By Mouth, Daily, PRN NEEDED, # 30 capsule, 2 Refills, Maintenance, 05/13/22 12:46:00 EST, [facility] #[id number], 150, cm, 04/21/22 8:35:00 EST, Height, 60.2, kg, 11/18/20 16:28:00EDT, Dry Weight Start Date: 05/13/22 Status: Ordered Tylenol 325 mg oral capsule 2 capsule = 650 mg, By Mouth, Every 4 hours, PRN as needed for fever, # 90 capsule, 0 Refills, Maintenance, 10/23/20 13:20:00 EDT, Capsule, [facility] #[id number], Partial fill upon patient request if the prescription is for a schedule II opioid... Start Date: 10/23/20 Status: Ordered Problem List Condition Confirmation Course Effective Dates Status Health St atus Informant Back pain Confirmed Active Headache Confirmed Active HTN (hypertension) Confirmed Active Renal stones Confirmed Active Migraine Confirmed Active Refractory migraine with aura Confirmed Active Social History Social History Type Response Smoking Status Never smoker entered on: 07/28/15 Sex Patient Care team information Care Team Personnel Name: Felix Denise MD Position: [facility] Physician - Primary Care Member Role: PCP Address: Address: [address] [place] [address]- [place] Name: Jennifer Fink RN Position: [facility] RN Member Role: Primary Care Nurse Name: Bindu Drake RN Position: [facility] RN Member Role: Primary Care Nurse Name: Thomas Guerrero MD Position: [facility] HANDLE MACHINE OPERATOR Member Role: Lifetime HANDLE MACHINE OPERATOR Physician Address: Address: [address] [place] [address] [address]- Care Team Related Persons Name: CLARITZA MENDOZA Address: [place] [address] Name: IRENE LI Address: [place] [address]
--- OUTSIDE RECORDS SUMMARY | 2022-09-09 10:42 | XMS_ITS | Continuity of Care Document ---
Author Name Unknown Organization [facility] Address [address] [place] [address]- Care Team Providers Care Office Machine Punch Operator Name Role Phone Prior Wesly GRAYSON Primary Care Physician [phone] Encounter [facility] Date(s): 03/28/20 - 04/27/[address] [address]- Allergies, Adverse Reactions, Alerts Substance Reaction Severity Status NKA Active Immunizations Given and Recorded Vaccine Date Status Refusal Reason influenza virus vaccine, inactivated 04/28/16 Give n influenza virus vaccine, inactivated 02/18/15 Give n tetanus/diphtheria/pertussis, acel(Tdap) 07/16/15 Given Medications acetaminophen/butalbital/caffeine 300 mg-50 mg-40 mg oral capsule 1 capsule, By Mouth, Every 4 hours, PRN NEEDED, # 20 capsule, 0 Refills, Maintenance, 04/26/20 18:43:00 EST, [email or web address] #[id number], 1 capsule By Mouth Every 4 hours,PRN: NEEDED, 152.4, cm,01/22/20 11:23:00 EDT, Height, 61.5, kg, 02/21/19 1... Start Date: 04/26/20 Status: Ordered amitriptyline 25 mg oral tablet 50 mg, 2, tablet, By Mouth, Daily at bedtime, # 180 tablet, Refills 3, Tot. Refills 3, Maintenance,03/22/20 17:53:00 EST, Route to Pharmacy Electronically, [email or web address] #[id number], 152.4, cm, 01/22/20 11:23:00 EDT, Height, 61.5, kg, 02/21/19 10:4... Start Date: 03/22/20 Stop Date: 03/17/21 Status: Ordered [place] Saline Mist 0.65% nasal spray 2 sprays, Nares, Both, 4 times a day, # 45 mL, 0 Refills, Maintenance, 03/19/20 10:33:00 EST, [email or web address] #[id number], Partial fill upon patient request if the prescription is for a schedule II opioid drug., 2 sprays Nares, Both 4 times a day, 152... Start Date: 03/19/20 Status: Ordered cholecalciferol 2000 intl units oral capsule 1 capsule = 2,000 International_Units, By Mouth, Daily, # 90 capsule, 1 Refills, Maintenance, 01/28/20 7:32:00 EDT, Capsule, [email or web address] #[id number], 152.4, cm, 01/22/20 11:23:00 EDT, Height, 61.5, kg, 02/21/19 10:49:00 EST, Dry Weight Start Date: 01/28/20 Stop Date: 07/26/20 Status: Ordered dextromethorphan-guaifenesin 10 mg-200 mg/5 mL oral liquid 5 mL, By Mouth, Every 6 hours, PRN for cough, # 200 mL, 0 Refills, Maintenance, 03/19/20 10:35:00 EST, Liquid, [facility] #[id number], Partial fill upon patient request if the prescription is for a schedule II opioid drug., 5 mL By Mouth Every 6... Start Date: 03/19/20 Status: Ordered ibuprofen 200 mg oral tablet 400 mg, 2, tablet, By Mouth, Every 6 hours, # 100 tablet, Refills 0, Tot. Refills 0, Maintenance, 03/19/20 10:32:00 EST, Route to Pharmacy Electronically, [email or web address] #[id number], Partial fill upon patient request if the prescription is for a sche... Start Date: 03/19/20 Status: Ordered omeprazole 40 mg oral enteric coated capsule 1 capsule = 40 mg, By Mouth, 2 times a day, # 60 capsule, 2 Refills, Maintenance, 03/25/20 9:29:00 EST, CR Capsule, [email or web address] #[id number], 152.4, cm, 01/22/20 11:23:00 EDT, Height, 61.5, kg, 02/21/19 10:49:00 EST, Dry Weight Start Date: 03/25/20 Stop Date: 06/23/20 Status: Ordered ondansetron 4 mg oral tablet 1 tablet = 4 mg, By Mouth, Every 8 hours, # 90 tablet, 0 Refills, Maintenance, 03/30/20 9:51:00 EST, Tablet, [facility] #[id number], Partial fill upon patient request if the prescription is for a schedule II opioid drug., 152.4, cm, 01/22/20 11:2... Start Date: 03/30/20 Status: Ordered Tylenol 325 mg oral capsule 2 capsule = 650 mg, By Mouth, Every 4 hours, PRN as needed for fever, # 90 capsule, 0 Refills, Maintenance, 03/19/20 10:31:00 EST, Capsule, [facility] #[id number], Partial fill upon patient request if the prescription is for a schedule II opioid... Start Date: 03/19/20 Status: Ordered ZyrTEC 10 mg oral tablet 1 tablet = 10 mg, By Mouth, Daily, # 30 tablet, 3 Refills, Maintenance, 09/30/19 14:57:00 EDT, Tablet, [facility] #[id number], 152.4, cm, 04/09/19 11:38:00 EST, Height, 61.5, kg, 02/21/19 10:49:00 EST, Dry Weight Start Date: 09/30/19 Status: Ordered Problem List Condition Effective Dates Status Health Status Inform ant Back pain(Confirmed) Active Renal stones(Confirmed) Active Migraine(Confirmed) Active Social History Social History Type Response Smoking Status Never smoker entered on: 07/28/15 Sex Female
--- OUTSIDE RECORDS SUMMARY | 2022-09-09 10:42 | XMS_ITS | Continuity of Care Document ---
Author Name Unknown Organization [facility] Address [address] [place] [address]- Care Team Providers Care Third Mate Name Role Phone Prior Wesly GRAYSON Primary Care Physician Encounter [facility] Date(s): 04/29/20 - 05/29/[address] [address]- Allergies, Adverse Reactions, Alerts Substance Reaction Severity [...] capsule, 0 Refills, Maintenance, 04/26/20 18:43:00 EST, [facility] #[id number], 1 capsule By Mouth Every 4 hours,PRN: NEEDED, 152.4, cm,01/22/20 11:23:00 EDT, Height, 61.5, kg, 02/21/19 1... Start Date: 04/26/20 Status: Ordered amitriptyline 25 mg oral tablet 50 mg, 2, tablet, By Mouth, Daily at bedtime, # 180 tablet, Refills 3, Tot. Refills 3, Maintenance,03/22/20 17:53:00 EST, Route to Pharmacy Electronically, [facility] #[id number], 152.4, cm, 01/22/20 11:23:00 EDT, Height, 61.5, kg, 02/21/19 10:4... Start Date: 03/22/20 Stop Date: 03/17/21 Status: Ordered [place] Saline Mist 0.65% nasal spray 2 sprays, Nares, Both, 4 times a day, # 45 mL, 0 Refills, Maintenance, 03/19/20 10:33:00 EST, [facility] #[id number], Partial fill upon patient request if the prescription is for a schedule II opioid drug., 2 sprays Nares, Both 4 times a day, 152... Start Date: 03/19/20 Status: Ordered cholecalciferol 2000 intl units oral capsule 1 capsule = 2,000 International_Units, By Mouth, Daily, # 90 capsule, 1 Refills, Maintenance, 01/28/20 7:32:00 EDT, Capsule, [facility] #[id number], 152.4, cm, 01/22/20 11:23:00 EDT, Height, 61.5, kg, 02/21/19 10:49:00 EST, Dry Weight Start Date: 01/28/20 Stop Date: 07/26/20 Status: Ordered dextromethorphan-guaifenesin 10 mg-200 mg/5 mL oral liquid 5 mL, By Mouth, Every 6 hours, PRN for cough, # 200 mL, 0 Refills, Maintenance, 03/19/20 10:35:00 EST, [facility] #[id number], Partial fill upon patient request if the prescription is for a schedule II opioid drug., 5 mL By Mouth Every 6... Start Date: 03/19/20 Status: Ordered lidocaine 5% topical film 1 patch, Topically, Daily, PRN Pain , Mild, remove after 12 hours, # 13 each, 0 Refills, Maintenance, 05/11/20 11:28:00 EST, Film, [facility] #[id number], Partial fill upon patient request if the prescription is for a schedule II opioid drug., 1... Start Date: 05/11/20 Status: Ordered MiraLax oral powder for reconstitution = 17 Gm, By Mouth, Daily, dissolve in water before taking, # 255 Gm, 0 Refills, Maintenance, 05/04/20 12:19:00 EST, REC Powder, [facility] #[id number], Partial fill upon patient request if the prescription is for a schedule II opioid drug., 17 Gm... Start Date: 05/04/20 Status: Ordered naproxen 500 mg oral delayed release tablet 1 tablet = 500 mg, By Mouth, 2 times a day, # 60 tablet, 2 Refills, Maintenance, 05/11/20 11:26:00 EST, EC Tablet, [facility] #[id number], Partial fill upon patient request if the prescription is for a schedule II opioid drug., 150, cm, 05/11/20... Start Date: 05/11/20 Status: Ordered omeprazole 40 mg oral enteric coated capsule 1 capsule = 40 mg, By Mouth, 2 times a day, # 60 capsule, 2 Refills, Maintenance, 03/25/20 9:29:00 EST, CR Capsule, [facility] #[id number], 152.4, cm, 01/22/20 11:23:00 EDT, Height, 61.5, kg, 02/21/19 10:49:00 EST, Dry Weight Start Date: 03/25/20 Stop Date: 06/23/20 Status: Ordered ondansetron 4 mg oral tablet, disintegrating 1 tablet = 4 mg, By Mouth, Every 8 hours, PRN as needed for nausea/vomiting, # 30 tablet, 0 Refills, Maintenance, 04/28/20 5:09:00 EST, DIS Tablet, [facility] #[id number], Partial fill upon patient request if the prescription is for a schedule II... Start Date: 04/28/20 Stop Date: 05/05/20 Status: Ordered Tylenol 325 mg oral capsule 2 capsule = 650 mg, By Mouth, Every 4 hours, PRN as needed for fever, # 90 capsule, 0 Refills, Maintenance, 03/19/20 10:31:00 EST, Capsule, [facility] #[id number], Partial fill upon patient request if the prescription is for a schedule II opioid... Start Date: 03/19/20 Status: Ordered ZyrTEC 10 mg oral tablet 1 tablet = 10 mg, By Mouth, Daily, # 30 tablet, 3 Refills, Maintenance, 09/30/19 14:57:00 EDT, Tablet, [facility] #[id number], 152.4, cm, 04/09/19 11:38:00 EST, Height, 61.5, kg, 02/21/19 10:49:00 EST, Dry Weight Start Date: 09/30/19 Status: Ordered Problem List Condition Effective Dates Status Health Status Inform ant Back pain(Confirmed) Active Renal stones(Confirmed) Active Migraine(Confirmed) Active Social History Social History Type Response Smoking Status Never smoker entered on: 07/28/15 Sex Female
--- OUTSIDE RECORDS SUMMARY | 2022-09-09 10:42 | XMS_ITS | Continuity of Care Document ---
Author Name Unknown Organization [facility] Address [address] [place] [address]- Care Team Providers Care Computer Network Support Specialist Name Role User Acceptance TesterFelix Denise MD Primary Care Physician [phone] [place] [facility] [place]s): 10/07/20 - 11/06/20 [facility] [address] [place], [place] [address] Allergies, Adverse Reactions, Alerts Substance Reaction Severity [...] capsule, 0 Refills, Maintenance, 09/23/20 15:01:00 EDT, [facility] #[id number], 1 capsule By Mouth Every 4 hours,PRN: NEEDED, 150, cm, 09/23/20 13:41:00 EDT, Height, 60.8, kg, 08/05/20 11:... Start Date: 09/23/20 Status: Ordered amitriptyline 25 mg oral tablet 50 mg, 2, tablet, By Mouth, Daily at bedtime, # 180 tablet, Refills 3, Tot. Refills 3, Maintenance,10/23/20 13:21:00 EDT, Route to Pharmacy Electronically, [facility] #[id number], 150, cm, 10/23/20 13:15:00 EDT, Height, 60.8, kg, 08/05/20 11:45:... Start Date: 10/23/20 Stop Date: 10/18/21 Status: Ordered cholecalciferol 2000 intl units oral capsule 1 capsule = 2,000 International_Units, By Mouth, Daily, # 90 capsule, 1 Refills, Maintenance, 01/28/20 7:32:00 EDT, Capsule, [facility] #[id number], 152.4, cm, 01/22/20 11:23:00 EDT, Height, 61.5, kg, 02/21/19 10:49:00 EST, Dry Weight Start Date: 01/28/20 Stop Date: 07/26/20 Status: Ordered Flonase 50 mcg/inh nasal spray 1 sprays, Nares, Both, 2 times a day, # 16 Gm, 2 Refills, Maintenance, 10/23/20 13:21:00 EDT, Peridot, [facility] #[id number], Partial fill upon patient request if the prescription is for a schedule II opioid drug., 1 sprays Nares, Both 2 times a d... Start Date: 10/23/20 Status: Ordered MiraLax oral powder for reconstitution = 17 Gm, By Mouth, Daily, dissolve in water before taking, # 255 Gm, 0 Refills, Maintenance, 10/23/20 13:22:00 EDT, REC Powder, [facility] #[id number], Partial fill upon patient request if the prescription is for a schedule II opioid drug., 17 Gm... Start Date: 10/23/20 Status: Ordered naproxen 500 mg oral delayed release tablet 1 tablet = 500 mg, By Mouth, 2 times a day, # 60 tablet, 2 Refills, Maintenance, 10/23/20 13:21:00 EDT, EC Tablet, [facility] #[id number], Partial fill upon patient request if the prescription is for a schedule II opioid drug., 150, cm, 10/23/20... Start Date: 10/23/20 Status: Ordered omeprazole 40 mg oral enteric coated capsule 1 capsule, By Mouth, 2 times a day, # 60 capsule, 1 Refills, Maintenance, 10/23/20 13:22:00 EDT, [facility] #[id number], 150, cm, 10/23/20 13:15:00 EDT, Height, 60.8, kg, 08/05/20 11:45:00 EDT, Dry Weight Start Date: 10/23/20 Status: Ordered propranolol 60 mg oral capsule, extended release 60 mg, 1, capsule, By Mouth, Daily, # 30 capsule, Refills 1, Tot. Refills 1, Maintenance, 10/23/20 13:54:00 EDT, Route to Pharmacy Electronically, [facility] #[id number], Partial fill upon patient request if the prescription is for a schedule II... Start Date: 10/23/20 Status: Ordered propranolol 60 mg oral capsule, extended release See Instructions, TAKE 1 CAPSULE BY MOUTH DAILY, # 90 capsule, Refills 0, Maintenance, InstructionsReplace Required Details, Route to Pharmacy Electronically, [facility] #[id number], 150, cm, 10/23/20 13:44:00 EDT, Height, 60.8, kg, 08/05/20 11:... Start Date: 10/23/20 Status: Ordered SUMAtriptan 25 mg oral tablet 1 tablet = 25 mg, By Mouth, Once, At onset of headache. May repeat in 2 hours, # 18 tablet, 0 Refills, Soft Stop, 10/23/20 13:55:00 EDT, Tablet, [facility] #[id number], Partial fill upon patientrequest if the prescription is for a schedule II op... Start Date: 10/23/20 Status: Ordered Tylenol 325 mg oral capsule 2 capsule = 650 mg, By Mouth, Every 4 hours, PRN as needed for fever, # 90 capsule, 0 Refills, Maintenance, 10/23/20 13:20:00 EDT, Capsule, [facility] #[id number], Partial fill upon patient request if the prescription is for a schedule II opioid... Start Date: 10/23/20 Status: Ordered ZyrTEC 10 mg oral tablet 1 tablet = 10 mg, By Mouth, Daily, # 30 tablet, 3 Refills, Maintenance, 10/23/20 13:21:00 EDT, Tablet, [facility] #[id number], 150, cm, 10/23/20 13:15:00 EDT, Height, 60.8, kg, 08/05/20 11:45:00EDT, Dry Weight Start Date: 10/23/20 Status: Ordered Problem List Condition Effective Dates Status Health Status Inform ant Back pain(Confirmed) Active Renal stones(Confirmed) Active Migraine(Confirmed) Active Social History Social History Type Response Smoking Status Never smoker entered on: 07/28/15 Sex Female
--- OUTSIDE RECORDS SUMMARY | 2022-09-09 10:42 | XMS_ITS | Continuity of Care Document ---
Author Name Unknown Organization [facility] Address [address] [place] [address]- Care Team Providers Care Brothel Keeper Name Role Phone Prior Wesly GRAYSON Primary Care Physician [phone] Encounter [facility] [place] Date(s): 12/23/19 - 01/22/[address] [address]- [facility] Allergies, Adverse Reactions, Alerts Substance Reaction Severity Status NKA Active Immunizations Given and Recorded Vaccine Date Status Refusal Reason influenza virus vaccine, inactivated 04/28/16 Give n influenza virus vaccine, inactivated 02/18/15 Give n tetanus/diphtheria/pertussis, acel(Tdap) 07/16/15 Given Medications amitriptyline 25 mg oral tablet 50 mg, 2, tablet, By Mouth, Daily at bedtime, for 90 days, # 180 tablet, Refills 0, Tot. Refills 0,Hard Stop 03/22/20 17:53:00 EST, 12/23/19 17:53:00 EDT, Route to Pharmacy Electronically, [facility] #[id number], 152.4, cm, 10/08/19 15:59:00 EDT... Start Date: 12/23/19 Stop Date: 03/22/20 Status: Ordered amitriptyline 25 mg oral tablet 50 mg, 2, tablet, By Mouth, Daily at bedtime, # 180 tablet, Refills 3, Tot. Refills 3, Maintenance,03/22/20 17:53:00 EST, Route to Pharmacy Electronically, [facility] #[id number], 152.4, cm, 01/22/20 11:23:00 EDT, Height, 61.5, kg, 02/21/19 10:4... Start Date: 03/22/20 Stop Date: 03/17/21 Status: Ordered cholecalciferol 1000 intl units oral tablet 1 tablet = 1,000 International_Units, By Mouth, Daily, # 30 tablet, 2 Refills, Maintenance, 10/03/19 13:04:00 EDT, [facility] #[id number], 152.4, cm, 04/09/19 11:38:00 EST, Height, 61.5, kg, 02/21/19 10:49:00 EST, Dry Weight Start Date: 10/03/19 Status: Ordered Colace sodium 100 mg oral capsule 100 mg, 1, capsule, By Mouth, 2 times a day, PRN, # 30 capsule, Refills 0, Tot. Refills 0, Maintenance, for constipation, 12/29/16 14:40:38, Print Requisition Start Date: 12/29/16 Stop Date: 01/12/17 Status: Ordered Diflucan 150 mg oral tablet 1 tablet = 150 mg, By Mouth, Once, # 1 tablet, 1 Refills, Soft Stop, 01/31/18 10:34:00 EDT, Tablet Start Date: 01/31/18 Status: Ordered ferrous sulfate 325 mg oral enteric coated tablet 325 mg, 1, tablet, By Mouth, Daily, # 30 tablet, Refills 1, Tot. Refills 1, Maintenance, 12/29/16 14:40:36, Print Requisition Start Date: 12/29/16 Status: Ordered Naprosyn 500 mg oral tablet 1 tablet = 500 mg, By Mouth, 2 times a day, PRN for pain, # 20 tablet, 0 Refills, Maintenance, 02/26/19 9:46:20 EST, Tablet Start Date: 02/26/19 Status: Ordered omeprazole 40 mg oral enteric coated capsule 1 capsule = 40 mg, By Mouth, 2 times a day, # 60 capsule, 1 Refills, Maintenance, 01/22/20 11:50:00EDT, CR Capsule, [facility] #[id number], 152.4, cm, 01/22/20 11:23:00 EDT, Height, 61.5, kg, 02/21/19 10:49:00 EST, Dry Weight Start Date: 01/22/20 Stop Date: 03/22/20 Status: Ordered ondansetron 4 mg oral tablet, disintegrating 1 tablet = 4 mg, By Mouth, Every 8 hours, PRN Nausea & Vomiting, # 6 tablet, 0 Refills, Maintenance, 08/08/19 15:59:00 EDT, Tablet, [facility] #[id number], 152.4, cm, 04/09/19 11:38:00 EST, Height, 61.5, kg, 02/21/19 10:49:00 EST, Dry Weight Start Date: 08/08/19 Stop Date: 08/10/19 Status: Ordered Multivitamins with Folic Acid 1 mg oral capsule See Instructions, TAKE ONE DAILY BY MOUTH, # 100 bottle, 2 Refills, Maintenance, 04/13/16 14:41:34,TAKE ONE DAILY BY MOUTH Start Date: 04/13/16 Status: Ordered Splint See Instructions, # 1 each, Maintenance, use at night left side, 09/14/17 12:14:34 EDT, Compound Start Date: 09/14/17 Status: Ordered sulindac 150 mg oral tablet 1 tablet = 150 mg, By Mouth, 2 times a day, PRN for pain, # 20 tablet, 1 Refills, Maintenance, 01/29/19 13:57:22 EDT, Tablet Start Date: 01/29/19 Stop Date: 02/18/19 Status: Ordered Tylenol Extra Strength 500 mg oral tablet 1-2 tablet, By Mouth, 3 times a day, PRN as needed for fever, for 30 days, # 100 tablet, 1 Refills,Acute 03/22/20 11:51:00 EST, 01/22/20 11:51:00 EDT, Tablet, [facility] #[id number], 152.4, cm,01/22/20 11:23:00 EDT, Height, 61.5, kg, 02/21/19 1... Start Date: 01/22/20 Stop Date: 03/22/20 Status: Ordered ZyrTEC 10 mg oral tablet 1 tablet = 10 mg, By Mouth, Daily, # 30 tablet, 3 Refills, Maintenance, 09/30/19 14:57:00 EDT, Tablet, [facility] #[id number], 152.4, cm, 04/09/19 11:38:00 EST, Height, 61.5, kg, 02/21/19 10:49:00 EST, Dry Weight Start Date: 09/30/19 Status: Ordered Problem List Condition Effective Dates Status Health Status Inform ant Back pain(Confirmed) Active Renal stones(Confirmed) Active Migraine(Confirmed) Active Social History Social History Type Response Smoking Status Never smoker entered on: 07/28/15 Sex Female
--- OUTSIDE RECORDS SUMMARY | 2022-09-09 10:42 | XMS_ITS | Continuity of Care Document ---
Author Name Unknown Organization [facility] Address [address] [place] [address]- Care Team Providers Care Hospice Music Therapy Name Role Servicer Travel TrailersFelix wills MD Primary Care Physician Encounter [facility] [place] Date(s): 02/17/21 - 03/19/[address] [address]- Attending Physician: Admtr, Ar8 Admitting Physician: Admtr, [...] 4 hours, PRN NEEDED, # 10 capsule, 1 Refills, Maintenance, 02/17/21 9:46:00 EST, [email or web address] #[id number], 1 capsule By Mouth Every 4 hours,PRN: NEEDED, 150, cm, 02/17/21 9:13:00 EST, Height, 60.2, kg, 11/18/20 16:28... Start Date: 02/17/21 Status: Ordered amitriptyline 25 mg oral tablet 50 mg, 2, tablet, By Mouth, Daily at bedtime, # 180 tablet, Refills 3, Tot. Refills 3, Maintenance,10/18/21 13:21:00 EDT, Route to Pharmacy Electronically, [facility] #[id number], 150, cm, 02/17/21 9:13:00 EST, Height, 60.2, kg, 11/18/20 16:28:0... Start Date: 10/18/21 Stop Date: 10/13/22 Status: Ordered amitriptyline 25 mg oral tablet 50 mg, 2, tablet, By Mouth, Daily at bedtime, for 90 days, # 180 tablet, Refills 3, Tot. Refills 3,Hard Stop 10/18/21 13:21:00 EDT, 10/23/20 13:21:00 EDT, Route to Pharmacy Electronically, [facility] #[id number], 150, cm, 10/23/20 13:15:00 EDT,... Start Date: 10/23/20 Stop Date: 10/18/21 Status: Ordered cetirizine 10 mg oral tablet 1 tablet, By Mouth, Daily, # 30 tablet, 0 Refills, [facility] #[id number], 150, cm, 02/08/21 15:46:00 EDT, Height, 60.2, kg, 11/18/20 16:28:00 EDT, Dry Weight Start Date: 02/15/21 Status: Ordered cholecalciferol 2000 intl units oral capsule 1 capsule = 2,000 International_Units, By Mouth, Daily, # 90 capsule, 1 Refills, Maintenance, 01/28/20 7:32:00 EDT, Capsule, [facility] #[id number], 152.4, cm, 01/22/20 11:23:00 EDT, Height, 61.5, kg, 02/21/19 10:49:00 EST, Dry Weight Start Date: 01/28/20 Stop Date: 07/26/20 Status: Ordered diclofenac sodium 25 mg oral delayed release tablet 1 tablet = 25 mg, By Mouth, 3 times a day, PRN Pain, # 90 tablet, 0 Refills, Maintenance, 02/08/21 16:40:00 EDT, EC Tablet, [facility] #[id number], Partial fill upon patient request if the prescription is for a schedule II opioid drug., 150, cm,... Start Date: 02/08/21 Status: Ordered fluticasone 50 mcg/inh nasal spray See Instructions, SHAKE LIQUID AND USE 1 SPRAY IN EACH NOSTRIL TWICE DAILY, # 16 Gm, 0 Refills, [facility] #[id number], 30, SHAKE LIQUID AND USE 1 SPRAY IN EACH NOSTRIL TWICE DAILY, 150, cm, 02/08/21 15:46:00 EDT, Height, 60.2, kg, 11/18/20 16:28... Start Date: 02/15/21 Status: Ordered lidocaine 5% topical film 1 patch, Topically, Daily, remove patches after 12 hours, # 30 patch, 0 Refills, Maintenance, 02/10/21 18:52:00 EDT, [facility] #[id number], Partial fill upon patient request if the prescriptionis for a schedule II opioid drug., 1 patch Topicall... Start Date: 02/10/21 Stop Date: 03/12/21 Status: Ordered lidocaine 5% topical film 1 patch, Topically, Daily, REMOVE AFTER 12 HOURS NEEDED FOR PAIN, # 13 patch, 0 Refills, [facility] #[id number], 13, APPLY 1 PATCH TOPICALLY TO AFFECTED AREA EVERY DAY. REMOVE AFTER 12 HOURS NEEDED FOR PAIN, 150, cm, 11/18/20 16:25:00 EDT,... Start Date: 02/06/21 Status: Ordered MiraLax oral powder for reconstitution = 17 Gm, By Mouth, Daily, dissolve in water before taking, # 255 Gm, 0 Refills, Maintenance, 10/23/20 13:22:00 EDT, REC Powder, [facility] #[id number], Partial fill upon patient request if the prescription is for a schedule II opioid drug., 17 Gm... Start Date: 10/23/20 Status: Ordered omeprazole 40 mg oral enteric coated capsule 1 capsule, By Mouth, 2 times a day, # 60 capsule, 1 Refills, Maintenance, 10/23/20 13:22:00 EDT, [facility] #[id number], 150, cm, 10/23/20 13:15:00 EDT, Height, 60.8, kg, 08/05/20 11:45:00 EDT, Dry Weight Start Date: 10/23/20 Status: Ordered SUMAtriptan 25 mg oral tablet 1 tablet = 25 mg, By Mouth, Once, At onset of headache. May repeat in 2 hours, # 1 tablet, 2 Refills, Soft Stop, 02/17/21 9:46:00 EST, Tablet, [facility] #[id number], Partial fill upon patient request if the prescription is for a schedule II opio... Start Date: 02/17/21 Status: Ordered Tylenol 325 mg oral capsule 2 capsule = 650 mg, By Mouth, Every 4 hours, PRN as needed for fever, # 90 capsule, 0 Refills, Maintenance, 10/23/20 13:20:00 EDT, Capsule, [facility] #[id number], Partial fill upon patient request if the prescription is for a schedule II opioid... Start Date: 10/23/20 Status: Ordered Problem List Condition Effective Dates Status Health Status Inform ant Back pain(Confirmed) Active Renal stones(Confirmed) Active Migraine(Confirmed) Active Social History Social History Type Response Smoking Status Never smoker entered on: 07/28/15 Sex
--- OUTSIDE RECORDS SUMMARY | 2022-09-09 10:42 | XMS_ITS | Continuity of Care Document ---
Author Name Unknown Organization [facility] Address [address] [place] [address]- Care Team Providers Care Secretary To The Vice President Name Role Phone Prior Wesly GRAYSON Primary Care Physician Encounter [facility] [place] [id number] Date(s): 03/25/19 - 04/04/[address] [address]- [facility] Attending Physician: Lance Harris Admitting Physician: Admtr, Lance Referring Physician: Admtr, Ar8 Allergies, Adverse Reactions, Alerts Substance Reaction Severity Status NKA Active Immunizations Given and Recorded Vaccine Date Status Refusal Reason influenza virus vaccine, inactivated 04/28/16 Give n influenza virus vaccine, inactivated 02/18/15 Give n tetanus/diphtheria/pertussis, acel(Tdap) 07/16/15 Given Medications amitriptyline 25 mg oral tablet See Instructions, 2 tablet at bedtime for 2 weeks, then 1 tablet at bedtime for 2 weeks, then 1/2 tablet at bedtime for 2 weeks, then stop., # 50 tablet, Refills 0, Tot. Refills 0, Maintenance, 04/28/16 18:31:12, Instructions Replace Required Detail... Start Date: 04/28/16 Status: Ordered Colace sodium 100 mg oral [...] Print Requisition Start Date: 12/29/16 Status: Ordered ibuprofen 600 mg oral tablet 600 mg, 1, tablet, By Mouth, Every 6 hours, # 30 tablet, Refills 0, Tot. Refills 0, Maintenance, 02/01/18 23:25:42 EDT, Print Requisition Start Date: 02/01/18 Status: Ordered Naprosyn 500 mg oral tablet 1 tablet = 500 mg, By Mouth, 2 times a day, PRN for pain, # 20 tablet, 0 Refills, Maintenance, 02/26/19 9:46:20 EST, Tablet Start Date: 02/26/19 Status: Ordered Multivitamins with Folic Acid 1 [...] 01/29/19 Stop Date: 02/18/19 Status: Ordered Tylenol 325 mg oral tablet 975 mg, 3, tablet, By Mouth, Once, Refills 0, Acute, 07/22/15 9:50:00 Start Date: 07/22/15 Status: Ordered Zofran ODT 4 mg oral tablet, disintegrating 1 tablet = 4 mg, By Mouth, Every 8 hours, PRN Nausea & Vomiting, # 10 tablet, 0 Refills, Maintenance, 01/28/18 23:34:44 EDT, Tablet Start Date: 01/28/18 Status: Ordered Problem List Condition Effective Dates Status Health Status Inform ant Back pain(Confirmed) Active Renal stones(Confirmed) Active Migraine(Confirmed) Active Social History Social History Type Response Smoking Status Never smoker entered on: 07/28/15 Sex Female
--- OUTSIDE RECORDS SUMMARY | 2022-09-09 10:42 | XMS_ITS | Continuity of Care Document ---
Author Name Unknown Organization [facility] Address [address] [place] [address]- Care Team Providers Care Registered Nurse Surgical Services Name Role Special Services CoordinatorFelix Denise MD Primary Care Physician Encounter [facility] [place] Date(s): 02/05/21 - 02/06/[address] [address]- Encounter Diagnosis back pain, abdominal pain(Final) - 02/06/21 Discharge Disposition: A-D/C Home Attending Physician: Jada Whitaker MD Admitting Physician: Jada Whitaker MD Referring Physician: Not on Staff, Referring [...] capsule, 0 Refills, Maintenance, 09/23/20 15:01:00 EDT, [facility] #[id number], 1 capsule By Mouth Every 4 hours,PRN: NEEDED, 150, cm, 09/23/20 13:41:00 EDT, Height, 60.8, kg, 08/05/20 11:... Start Date: 09/23/20 Status: Ordered amitriptyline 25 mg oral tablet 50 mg, 2, tablet, By Mouth, Daily at bedtime, # 180 tablet, Refills 3, Tot. Refills 3, Maintenance,10/23/20 13:21:00 EDT, Route to Pharmacy Electronically, [facility] #[id number], 150, cm, 10/23/20 13:15:00 EDT, Height, 60.8, kg, 08/05/20 11:45:... Start Date: 10/23/20 Stop Date: 10/18/21 Status: Ordered cholecalciferol 2000 intl units oral capsule 1 capsule = 2,000 International_Units, By Mouth, Daily, # 90 capsule, 1 Refills, Maintenance, 01/28/20 7:32:00 EDT, Capsule, [facility] #[id number], 152.4, cm, 01/22/20 11:23:00 EDT, Height, 61.5, kg, 02/21/19 10:49:00 EST, Dry Weight Start Date: 01/28/20 Stop Date: 07/26/20 Status: Ordered Flonase 50 mcg/inh nasal spray 1 sprays, Nares, Both, 2 times a day, # 16 Gm, 2 Refills, Maintenance, 10/23/20 13:21:00 EDT, [place], [facility] #[id number], Partial fill upon patient request if the prescription is for a schedule II opioid drug., 1 sprays Nares, Both 2 times a d... Start Date: 10/23/20 Status: Ordered fluticasone 50 mcg/inh nasal spray See Instructions, SHAKE LIQUID AND USE 1 SPRAY IN EACH NOSTRIL TWICE DAILY, # 16 Gm, 0 Refills, [facility] #[id number], 30, SHAKE LIQUID AND USE 1 SPRAY IN EACH NOSTRIL TWICE DAILY, 150, cm, 11/18/20 16:25:00 EDT, Height, 60.2, kg, 11/18/20 16:28... Start Date: 01/14/21 Status: Ordered ibuprofen 600 mg oral tablet 600 mg, 1, tablet, By Mouth, 4 times a day, for 5 days, with food or milk, # 20 tablet, Refills 0, Tot. Refills 0, Acute 02/11/21 0:29:00 EDT, 02/06/21 0:29:00 EDT, Route to Pharmacy Electronically, [facility] #[id number], Partial fill upon patie... Start Date: 02/06/21 Stop Date: 02/11/21 Status: Ordered lidocaine 5% topical film 1 patch, Topically, Daily, REMOVE AFTER 12 HOURS NEEDED FOR PAIN, # 13 patch, 0 Refills, [facility] #[id number], 13, APPLY 1 PATCH TOPICALLY TO AFFECTED AREA EVERY DAY. REMOVE AFTER 12 HOURS NEEDED FOR PAIN, 150, cm, 11/18/20 16:25:00 EDT,... Start Date: 02/06/21 Status: Ordered MiraLax oral powder for reconstitution = 17 Gm, By Mouth, Daily, dissolve in water before taking, # 255 Gm, 0 Refills, Maintenance, 10/23/20 13:22:00 EDT, REC Powder, [facility] #[id number], Partial fill upon patient request if the prescription is for a schedule II opioid drug., 17 Gm... Start Date: 10/23/20 Status: Ordered naproxen 500 mg oral delayed release tablet See Instructions, TAKE 1 TABLET BY MOUTH TWICE DAILY, # 60 tablet, 0 Refills, [facility] #[id number], 150, cm, 11/18/20 16:25:00 EDT, Height, 60.2, kg, 11/18/20 16:28:00 EDT, Dry Weight Start Date: 01/14/21 Status: Ordered naproxen 500 mg oral delayed release tablet 1 tablet = 500 mg, By Mouth, 2 times a day, # 60 tablet, 2 Refills, Maintenance, 10/23/20 13:21:00 EDT, EC Tablet, [facility] #[id number], Partial fill upon patient request if the prescription is for a schedule II opioid drug., 150, cm, 10/23/20... Start Date: 10/23/20 Status: Ordered omeprazole 40 mg oral enteric coated capsule 1 capsule, By Mouth, 2 times a day, # 60 capsule, 1 Refills, Maintenance, 10/23/20 13:22:00 EDT, [facility] #[id number], 150, cm, 10/23/20 13:15:00 EDT, Height, 60.8, kg, 08/05/20 11:45:00 EDT, Dry Weight Start Date: 10/23/20 Status: Ordered propranolol 60 mg oral capsule, extended release See Instructions, TAKE 1 CAPSULE BY MOUTH DAILY, # 90 capsule, Refills 0, Instructions Replace Required Details, Route to Pharmacy Electronically, [facility] #[id number], 150, cm, 11/18/20 16:25:00 EDT, Height, 60.2, kg, 11/18/20 16:28:00 EDT, Start Date: 01/14/21 Status: Ordered propranolol 60 mg oral capsule, extended release 60 mg, 1, capsule, By Mouth, Daily, # 30 capsule, Refills 1, Tot. Refills 1, Maintenance, 10/23/20 13:54:00 EDT, Route to Pharmacy Electronically, [facility] #[id number], Partial fill upon patient request if the prescription is for a schedule II... Start Date: 10/23/20 Status: Ordered propranolol 60 mg oral capsule, extended release See Instructions, TAKE 1 CAPSULE BY MOUTH DAILY, # 90 capsule, Refills 0, Maintenance, InstructionsReplace Required Details, Route to Pharmacy Electronically, [facility] #[id number], 150, cm, 10/23/20 13:44:00 EDT, Height, 60.8, kg, 08/05/20 11:... Start Date: 10/23/20 Status: Ordered SUMAtriptan 25 mg oral tablet 1 tablet = 25 mg, By Mouth, Once, At onset of headache. May repeat in 2 hours, # 18 tablet, 0 Refills, Soft Stop, 10/23/20 13:55:00 EDT, Tablet, [facility] #[id number], Partial fill upon patientrequest if the prescription is for a schedule II op... Start Date: 10/23/20 Status: Ordered Tylenol 325 mg oral capsule 2 capsule = 650 mg, By Mouth, Every 4 hours, PRN as needed for fever, # 90 capsule, 0 Refills, Maintenance, 10/23/20 13:20:00 EDT, Capsule, [facility] #[id number], Partial fill upon patient request if the prescription is for a schedule II opioid... Start Date: 10/23/20 Status: Ordered ZyrTEC 10 mg oral tablet 1 tablet = 10 mg, By Mouth, Daily, # 30 tablet, 3 Refills, Maintenance, 10/23/20 13:21:00 EDT, Tablet, [facility] #[id number], 150, cm, 10/23/20 13:15:00 EDT, Height, 60.8, kg, 08/05/20 11:45:00EDT, Dry Weight Start Date: 10/23/20 Status: Ordered Problem List Condition Effective Dates Status Health Status Inform ant Back pain(Confirmed) Active Renal stones(Confirmed) Active Migraine(Confirmed) Active Results Orders for Microbiology Reports Name Date Wet Prep 02/05/21 Microbiology Reports TEST:Wet Prep STATUS:Auth (Verified) BODY SITE: SOURCE:VAGINA COLLECTED DATE/TIME:02/05/21 3:38 PM Wet Prep SPECIMEN DESCRIPTION : VAGINAL SPECIMEN SPECIAL REQUESTS : NONE DIRECT EXAM : 1+ WHITE BLOOD CELLS NO YEAST OBSERVED NO TRICHOMONAS OBSERVED NO CLUE CELLS OBSERVED REPORT STATUS : FINAL 02/05/2021 Vital Signs Most recent to oldest [Reference Range]: 1 2 3 Oxygen Saturation [94-100 %] 100 % (02/05/21 11:34 PM) 100 % (02/05/21 11:12 PM) 100 % (02/05/21: PM) Pulse Rate [55-90 bpm] 76 bpm (02/05/21 11:34 PM) 78 bpm (02/05/21 11:12 PM) 77 bpm (02/05/21: PM) Blood Pressure [90-138/55-84 mm Hg] 140/58mm Hg *H* (02/05/21 11:34 PM) 144/98mm Hg *H* (02/05/21 11:12 PM) 131/85mm Hg (02/05/21 7:21 PM) Respiratory Rate [16-30 br/min] 16 br/min (02/05/21 11:34 PM) 15 br/min *L* (02/05/21 11:12 PM) 15 br/min *L* (02/05/21 7:21 PM) Temperature [96.8-100.4 DegF] 98.6 DegF (02/05/21 11:12 PM) 98 DegF (02/05/21 6:10 PM) 98.3 DegF (02/05/21 1:18 PM) Mode of Delivery (Oxygen) Room air (02/05/21 11:34 PM) Room air (02/05/21 11:12 PM) Room air (02/05/21 7:21 PM) Blood pressure sites Arm, left (02/05/21 11:34 PM) Arm, left (02/05/21 11:12 PM) Arm, left (02/05/21 7:21 PM) Temperature Route Oral (02/05/21 11:12 PM) Oral (02/05/21 6:10 PM) Oral (02/05/21 1:18 PM) Social History Social History Type Response Smoking Status Never smoker entered on: 07/28/15 Sex Female
--- OUTSIDE RECORDS SUMMARY | 2022-09-09 10:42 | XMS_ITS | Continuity of Care Document ---
Author Name Unknown Organization [facility] Address [address] [place] [address]- Care Team Providers Care Electronic Warfare Technical Name Role Drilling SupervisorFelix Denise MD Primary Care Physician Encounter [facility] Date(s): 09/17/20 - 10/17/[address] [address] Allergies, Adverse Reactions, Alerts Substance Reaction [...] 300 mg-50 mg-40 mg oral capsule 1 TO 2 CAPSULES, By Mouth, Every 4 hours, PRN NEEDED, NEED APPOINTMENT FOR MORE REFILLS., # 2 capsule, 0 Refills, Acute, 09/21/20 12:30:00 EDT, [facility] #[id number], 1, TAKE 1 TO 2 CAPSULESBY MOUTH EVERY 4 HOURS NEEDED, NEED APPOINTMENT... Start Date: 09/21/20 Status: Ordered acetaminophen/butalbital/caffeine 300 mg-50 mg-40 mg oral capsule 1 capsule, By Mouth, Every 4 hours, PRN NEEDED, # 10 capsule, 0 Refills, Maintenance, 09/23/20 15:01:00 EDT, [facility] #[id number], 1 capsule By Mouth Every 4 hours,PRN: NEEDED, 150, cm, 09/23/20 13:41:00 EDT, Height, 60.8, kg, 08/05/20 11:... Start Date: 09/23/20 Status: Ordered amitriptyline 25 mg oral tablet 50 mg, 2, tablet, By Mouth, Daily at bedtime, # 180 tablet, Refills 3, Tot. Refills 3, Maintenance,03/22/20 17:53:00 EST, Route to Pharmacy Electronically, [facility] #[id number], 152.4, cm, 01/22/20 11:23:00 EDT, Height, 61.5, kg, 02/21/19 10:4... Start Date: 03/22/20 Stop Date: 03/17/21 Status: Ordered Kistler Saline Mist 0.65% nasal spray 2 sprays, Nares, Both, 4 times a day, # 45 mL, 0 Refills, Maintenance, 03/19/20 10:33:00 EST, [facility] #[id number], Partial fill upon patient request if the prescription is for a schedule II opioid drug., 2 sprays Nares, Both 4 times a day, 152... Start Date: 03/19/20 Status: Ordered cholecalciferol 2000 intl units oral capsule 1 capsule = 2,000 International_Units, By Mouth, Daily, # 90 capsule, 1 Refills, Maintenance, 01/28/20 7:32:00 EDT, Capsule, [facility] #[id number], 152.4, cm, 01/22/20 11:23:00 EDT, Height, 61.5, kg, 02/21/19 10:49:00 EST, Dry Weight Start Date: 01/28/20 Stop Date: 07/26/20 Status: Ordered dextromethorphan-guaifenesin 10 mg-200 mg/5 mL oral liquid 5 mL, By Mouth, Every 6 hours, PRN for cough, # 200 mL, 0 Refills, Maintenance, 03/19/20 10:35:00 EST, Liquid, [facility] #[id number], Partial fill upon patient request if the prescription is for a schedule II opioid drug., 5 mL By Mouth Every 6... Start Date: 03/19/20 Status: Ordered Flonase 50 mcg/inh nasal spray 1 sprays, Nares, Both, 2 times a day, # 16 Gm, 2 Refills, Maintenance, 09/23/20 15:01:00 EDT, [place], [facility] #[id number], Partial fill upon patient request if the prescription is for a schedule II opioid drug., 1 sprays Nares, Both 2 times a d... Start Date: 09/23/20 Status: Ordered lidocaine 5% topical film 1 patch, Topically, Daily, PRN Pain , Mild, remove after 12 hours, # 13 each, 0 Refills, Maintenance, 05/11/20 11:28:00 EST, Film, [facility] #[id number], Partial fill upon patient request if the prescription is for a schedule II opioid drug., 1... Start Date: 05/11/20 Status: Ordered MiraLax oral powder for reconstitution = 17 Gm, By Mouth, Daily, dissolve in water before taking, # 255 Gm, 0 Refills, Maintenance, 05/04/20 12:19:00 EST, REC Powder, [facility] #[id number], Partial fill upon patient request if the prescription is for a schedule II opioid drug., 17 Gm... Start Date: 05/04/20 Status: Ordered naproxen 500 mg oral delayed release tablet 1 tablet = 500 mg, By Mouth, 2 times a day, # 60 tablet, 2 Refills, Maintenance, 05/11/20 11:26:00 EST, EC Tablet, [facility] #[id number], Partial fill upon patient request if the prescription is for a schedule II opioid drug., 150, cm, 05/11/20... Start Date: 05/11/20 Status: Ordered omeprazole 40 mg oral enteric coated capsule 1 capsule, By Mouth, 2 times a day, # 60 capsule, 1 Refills, Maintenance, 08/14/20 8:32:00 EDT, [facility] #[id number], 150, cm, 08/05/20 11:45:00 EDT, Height, 60.8, kg, 08/05/20 11:45:00 EDT, Dry Weight Start Date: 08/14/20 Status: Ordered ondansetron 4 mg oral tablet, disintegrating 1 tablet = 4 mg, By Mouth, Every 8 hours, PRN as needed for nausea/vomiting, # 30 tablet, 0 Refills, Maintenance, 04/28/20 5:09:00 EST, DIS Tablet, [facility] #[id number], Partial fill upon patient request if the prescription is for a schedule II... Start Date: 04/28/20 Stop Date: 05/05/20 Status: Ordered Tylenol 325 mg oral capsule 2 capsule = 650 mg, By Mouth, Every 4 hours, PRN as needed for fever, # 90 capsule, 0 Refills, Maintenance, 03/19/20 10:31:00 EST, Capsule, [facility] #[id number], Partial fill upon patient request if the prescription is for a schedule II opioid... Start Date: 03/19/20 Status: Ordered ZyrTEC 10 mg oral tablet 1 tablet = 10 mg, By Mouth, Daily, # 30 tablet, 3 Refills, Maintenance, 09/30/19 14:57:00 EDT, Tablet, [facility] #[id number], 152.4, cm, 04/09/19 11:38:00 EST, Height, 61.5, kg, 02/21/19 10:49:00 EST, Dry Weight Start Date: 09/30/19 Status: Ordered Problem List Condition Effective Dates Status Health Status Inform ant Back pain(Confirmed) Active Renal stones(Confirmed) Active Migraine(Confirmed) Active Social History Social History Type Response Smoking Status Never smoker entered on: 07/28/15 Sex Female
--- OUTSIDE RECORDS SUMMARY | 2022-09-09 10:42 | XMS_ITS | Continuity of Care Document ---
Author Name Unknown Organization [facility] Address [address] [place] [address]- Care Team Providers Care Blower Mechanic Name Role Personal Computer SpecialistFelix Denise MD Primary Care Physician [phone] Encounter [facility] [place](s): 11/15/21 - 11/22/21 [facility] [address] [place], [place] [address] Attending Physician: Ellis Penaloza DO Referring Physician: [...] capsule, 3 Refills, Maintenance, 04/29/21 10:53:00 EST, [facility] #[id number], 1 capsule By Mouth Every 4 hours,PRN: NEEDED, 150, cm, 02/17/21 9:13:00 EST, Height, 60.2, kg, 11/18/20 16:2... Start Date: 04/29/21 Status: Ordered amitriptyline 50 mg oral tablet 2 tablet = 100 mg, By Mouth, Daily at supper, dose increase, # 60 tablet, 5 Refills, Maintenance, 08/16/21 11:32:00 EDT, Tablet, [facility] #[id number], Partial fill upon patient request if the prescription is for a schedule II opioid drug., 150,... Start Date: 08/16/21 Stop Date: 02/12/22 Status: Ordered Blood Pressure Monitor See Instructions, # 1 each, Maintenance, to check blood pressure daily for medication titration Dx:essential hypertension ICD10: I10 duration: 52 weeks, 10/27/21 11:33:00 EDT, Supply Start Date: 10/27/21 Status: Ordered cetirizine 10 mg oral tablet 1 tablet, By Mouth, Daily, as needed for itching/allergies, # 30 tablet, 11 Refills, 04/29/21 11:04:00 EST, [facility] #[id number], 150, cm, 02/17/21 9:13:00 EST, Height, 60.2, kg, 11/18/20 16:28:00 EDT, Dry Weight Start Date: 04/29/21 Status: Ordered drospirenone-ethinyl estradiol 3 mg-0.02 mg oral tablet 1 tablet, By Mouth, Daily, Maintenance Start Date: 08/18/21 Status: Ordered fluticasone 50 mcg/inh nasal spray See Instructions, SHAKE LIQUID AND USE 1 SPRAY IN EACH NOSTRIL TWICE DAILY, # 16 Gm, 0 Refills, [facility] #[id number], 30, SHAKE LIQUID AND USE 1 SPRAY IN EACH NOSTRIL TWICE DAILY, 150, cm, 02/08/21 15:46:00 EDT, Height, 60.2, kg, 11/18/20 16:28... Start Date: 02/15/21 Status: Ordered hydroCHLOROthiazide 12.5 mg oral capsule 1 capsule = 12.5 mg, By Mouth, Daily, # 30 capsule, 1 Refills, Maintenance, 10/27/21 11:32:00 EDT, Capsule, [facility] #[id number], 150, cm, 10/27/21 11:15:00 EDT, Height, 60.2, kg, 11/18/20 16:28:00 EDT, Dry Weight Start Date: 10/27/21 Status: Ordered lidocaine 5% topical film 1 patch, Topically, Daily, remove patches after 12 hours, # 30 patch, 0 Refills, Maintenance, 02/10/21 18:52:00 EDT, [facility] #[id number], Partial fill upon patient request if the prescriptionis for a schedule II opioid drug., 1 patch Topicall... Start Date: 02/10/21 Stop Date: 03/12/21 Status: Ordered lidocaine 5% topical film 1 patch, Topically, Daily, REMOVE AFTER 12 HOURS NEEDED FOR PAIN, # 13 patch, 0 Refills, [facility] #[id number], 13, APPLY 1 PATCH TOPICALLY TO AFFECTED AREA EVERY DAY. REMOVE AFTER 12 HOURS NEEDED FOR PAIN, 150, cm, 11/18/20 16:25:00 EDT,... Start Date: 02/06/21 Status: Ordered MiraLax oral powder for reconstitution = 17 Gm, By Mouth, Daily, dissolve in water before taking, # 255 Gm, 0 Refills, Maintenance, 10/23/20 13:22:00 EDT, REC Powder, [facility] #[id number], Partial fill upon patient request if the [...] 04/29/21 Status: Ordered naproxen 500 mg oral delayed release tablet 1 tablet, By Mouth, 2 times a day, # 60 tablet, 0 Refills, [facility] #[id number], 150, cm, 08/18/21 16:48:00 EDT, Height, 60.2, kg, 11/18/20 16:28:00 EDT, Dry Weight Start Date: 10/14/21 Status: Ordered omeprazole 40 mg oral enteric coated capsule 1 capsule, By Mouth, Daily, as needed, # 30 capsule, 11 Refills, Maintenance, 04/29/21 11:03:00 EST, [facility] #[id number], 150, cm, 02/17/21 9:13:00 EST, Height, 60.2, kg, 11/18/20 16:28:00 EDT, Dry Weight Start Date: 04/29/21 Status: Ordered omeprazole 40 mg oral enteric coated capsule See Instructions, TAKE 1 CAPSULE BY MOUTH TWICE DAILY, # 180 capsule, 0 Refills, [facility] #[id number], 150, cm, 02/17/21 9:13:00 EST, Height, 60.2, kg, 11/18/20 16:28:00 EDT, Dry Weight Start Date: 03/29/21 Status: Ordered predniSONE 10 mg oral tablet See Instructions, For acute migraine. Take with food. Day 1 = 40mg. Day 2 = 30mg. Day 3 = 20mg Day 4 = 10mg, # 10 tablet, 0 Refills, Maintenance, 04/29/21 10:56:00 EST, [facility] #[id number], Partial fill upon patient request if the prescrip... Start Date: 04/29/21 Status: Ordered SUMAtriptan 25 mg oral tablet 1 tablet = 25 mg, By Mouth, Once, At onset of headache. May repeat in 2 hours. Take with naproxen, # 9 tablet, 2 Refills, Soft Stop, 04/29/21 10:53:00 EST, Tablet, [facility] #[id number], Partial fill upon patient request if the prescription is... Start Date: 04/29/21 Status: Ordered SUMAtriptan 50 mg oral tablet 1 tablet = 50 mg, By Mouth, Daily, PRN for migraine headache, may repeat dose after 2 hours up to amax 2 tabs / 24hrs ,no more than 3 doses/week, # 9 tablet, 2 Refills, Acute 08/16/22 11:35:00 EDT, 08/16/21 11:35:00 EDT, Tablet, [facility]... Start Date: 08/16/21 Stop Date: 08/16/22 Status: Ordered Tylenol 325 mg oral capsule 2 capsule = 650 mg, By Mouth, Every 4 hours, PRN as needed for fever, # 90 capsule, 0 Refills, Maintenance, 10/23/20 13:20:00 EDT, Capsule, [facility] #[id number], Partial fill upon patient request if the prescription is for a schedule II opioid... Start Date: 10/23/20 Status: Ordered Problem List Condition Effective Dates Status Health Status Inform ant Back pain(Confirmed) Active Blood pressure elevated with out history of HTN(Confirmed) Active Headache(Confirmed) Active Renal stones(Confirmed) Active Migraine(Confirmed) Active Refractory migraine with aura(Confirmed) Active Vital Signs Most recent to oldest [Reference Range]: 1 Height 150 cm (11/15/21 2:45 PM) Oxygen Saturation [94-100 %] 100 % (11/15/21 2:45 PM) Pulse Rate [55-90 bpm] 100 bpm *H* (11/15/21 2:45 PM) Blood Pressure [90-138/55-84 mm Hg] 140/ 92mm Hg *H* (11/15/21 2:45 PM) Respiratory Rate [16-30 br/min] 18 br/mi n (11/15/21 2:45 PM) Temperature [96.8-100.4 DegF] 98.2 DegF (11/15/21 2:45 PM) Mode of Delivery (Oxygen) Room air (11/15/21 2:45 PM) Blood pressure sites Arm, left (11/15/21 2:45 PM) Temperature Route Temporal (11/15/21 2:45 PM) Social History Social History Type Response Smoking Status Never smoker entered on: 07/28/15 Sex
--- OUTSIDE RECORDS SUMMARY | 2022-09-09 10:42 | XMS_ITS | Continuity of Care Document ---
Author Name Unknown Organization [facility] Address [address] [place] [address]- Care Team Providers Care Tank Car Cleaner Name Role Automatic Centrifugal Station OperatorFelix wills MD Primary Care Physician Encounter [facility] Date(s): 02/10/21 - 02/10/[address] [address]- Encounter Diagnosis Back pain(Final) - 02/10/21 Discharge Disposition: A-D/C Walkout Attending Physician: Darnell Soto DO Admitting Physician: Darnell Soto DO Referring Physician: Not on Staff, Referring MD [...] vaccine 05/03/20 Not Given Patient Refuses Medications acetaminophen 325 mg oral tablet 650 mg, 2, tablet, By Mouth, Every 4 hours, PRN, for 5 days, not to exceed 4000 mg/day, # 50 tablet, Refills 0, Tot. Refills 0, Acute 02/15/21 18:51:00 EST, as needed for pain, 02/10/21 18:51:00 EDT,Route to Pharmacy Electronically, [facility].. Start Date: 02/10/21 Stop Date: 02/15/21 Status: Ordered acetaminophen/butalbital/caffeine 300 mg-50 mg-40 mg oral capsule 1 capsule, By Mouth, Every 4 hours, PRN NEEDED, # 10 capsule, 0 Refills, Maintenance, 09/23/20 15:01:00 EDT, [facility] #[id number], 1 capsule By Mouth Every 4 hours,PRN: NEEDED, 150, cm, 09/23/20 13:41:00 EDT, Height, 60.8, kg, 08/05/20 11:... Start Date: 09/23/20 Status: Ordered amitriptyline 25 mg oral tablet 50 mg, 2, tablet, By Mouth, Daily at bedtime, # 180 tablet, Refills 3, Tot. Refills 3, Maintenance,10/23/20 13:21:00 EDT, Route to Pharmacy Electronically, [facility] #[id number], 150, cm, 10/23/20 13:15:00 EDT, Height, 60.8, kg, 08/05/20 11:45:... Start Date: 10/23/20 Stop Date: 10/18/21 Status: Ordered cholecalciferol 2000 intl units oral capsule 1 capsule = 2,000 International_Units, By Mouth, Daily, # 90 capsule, 1 Refills, Maintenance, 01/28/20 7:32:00 EDT, Capsule, [facility] #[id number], 152.4, cm, 01/22/20 11:23:00 EDT, Height, 61.5, kg, 02/21/19 10:49:00 EST, Dry Weight Start Date: 01/28/20 Stop Date: 07/26/20 Status: Ordered cyclobenzaprine 5 mg oral tablet 1 tablet = 5 mg, By Mouth, 3 times a day, for 3 days, # 9 tablet, 0 Refills, Acute 02/13/21 18:52:00 EDT, 02/10/21 18:52:00 EDT, Tablet, [facility] #[id number], Partial fill upon patient requestif the prescription is for a schedule II opioid cherry... Start Date: 02/10/21 Stop Date: 02/13/21 Status: Ordered diclofenac sodium 25 mg oral delayed release tablet 1 tablet = 25 mg, By Mouth, 3 times a day, PRN Pain, # 90 tablet, 0 Refills, Maintenance, 02/08/21 16:40:00 EDT, EC Tablet, [facility] #[id number], Partial fill upon patient request if the prescription is for a schedule II opioid drug., 150, cm,... Start Date: 02/08/21 Status: Ordered Flonase 50 mcg/inh nasal spray 1 sprays, Nares, Both, 2 times a day, # 16 Gm, 2 Refills, Maintenance, 10/23/20 13:21:00 EDT, [place], [facility] #[id number], Partial fill upon patient request if the prescription is for a schedule II opioid drug., 1 sprays Nares, Both 2 times a d... Start Date: 10/23/20 Status: Ordered fluticasone 50 mcg/inh nasal spray See Instructions, SHAKE LIQUID AND USE 1 SPRAY IN EACH NOSTRIL TWICE DAILY, # 16 Gm, 0 Refills, [facility] #[id number], 30, SHAKE LIQUID AND USE 1 SPRAY IN EACH NOSTRIL TWICE DAILY, 150, cm, 11/18/20 16:25:00 EDT, Height, 60.2, kg, 11/18/20 16:28... Start Date: 01/14/21 Status: Ordered ibuprofen 400 mg oral tablet 400 mg, 1, tablet, By Mouth, Every 6 hours, PRN, for 3 days, not to exceed 3200 mg/day, # 50 tablet, Refills 0, Tot. Refills 0, Acute 02/13/21 18:51:00 EDT, Pain , Moderate, 02/10/21 18:51:00 EDT, Route to Pharmacy Electronically, [facility]... Start Date: 02/10/21 Stop Date: 02/13/21 Status: Ordered lidocaine 5% topical film 1 patch, Topically, Daily, remove patches after 12 hours, # 30 patch, 0 Refills, Maintenance, 02/10/21 18:52:00 EDT, [facility] #[id number], Partial fill upon patient request if the prescriptionis for a schedule II opioid drug., 1 patch Topicall... Start Date: 02/10/21 Stop Date: 03/12/21 Status: Ordered lidocaine 5% topical film 1 patch, Topically, Daily, REMOVE AFTER 12 HOURS NEEDED FOR PAIN, # 13 patch, 0 Refills, [facility] #[id number], 13, APPLY 1 PATCH TOPICALLY TO AFFECTED AREA EVERY DAY. REMOVE AFTER 12 HOURS NEEDED FOR PAIN, 150, cm, 11/18/20 16:25:00 EDT,... Start Date: 02/06/21 Status: Ordered MiraLax oral powder for reconstitution = 17 Gm, By Mouth, Daily, dissolve in water before taking, # 255 Gm, 0 Refills, Maintenance, 10/23/20 13:22:00 EDT, REC Powder, [facility] #[id number], Partial fill upon patient request if the prescription is for a schedule II opioid drug., 17 Gm... Start Date: 10/23/20 Status: Ordered omeprazole 40 mg oral enteric coated capsule 1 capsule, By Mouth, 2 times a day, # 60 capsule, 1 Refills, Maintenance, 10/23/20 13:22:00 EDT, [facility] #[id number], 150, cm, 10/23/20 13:15:00 EDT, Height, 60.8, kg, 08/05/20 11:45:00 EDT, Dry Weight Start Date: 10/23/20 Status: Ordered propranolol 60 mg oral capsule, extended release See Instructions, TAKE 1 CAPSULE BY MOUTH DAILY, # 90 capsule, Refills 0, Instructions Replace Required Details, Route to Pharmacy Electronically, [facility] #[id number], 150, cm, 11/18/20 16:25:00 EDT, Height, 60.2, kg, 11/18/20 16:28:00 EDT, [facility] Start Date: 01/14/21 Status: Ordered propranolol 60 mg oral capsule, extended release 60 mg, 1, capsule, By Mouth, Daily, # 30 capsule, Refills 1, Tot. Refills 1, Maintenance, 10/23/20 13:54:00 EDT, Route to Pharmacy Electronically, [facility] #[id number], Partial fill upon patient request if the prescription is for a schedule II... Start Date: 10/23/20 Status: Ordered propranolol 60 mg oral capsule, extended release See Instructions, TAKE 1 CAPSULE BY MOUTH DAILY, # 90 capsule, Refills 0, Maintenance, InstructionsReplace Required Details, Route to Pharmacy Electronically, [facility] #[id number], 150, cm, 10/23/20 13:44:00 EDT, Height, 60.8, kg, 08/05/20 11:... Start Date: 10/23/20 Status: Ordered SUMAtriptan 25 mg oral tablet 1 tablet = 25 mg, By Mouth, Once, At onset of headache. May repeat in 2 hours, # 18 tablet, 0 Refills, Soft Stop, 10/23/20 13:55:00 EDT, Tablet, [facility] #[id number], Partial fill upon patientrequest if the prescription is for a schedule II op... Start Date: 10/23/20 Status: Ordered Tylenol 325 mg oral capsule 2 capsule = 650 mg, By Mouth, Every 4 hours, PRN as needed for fever, # 90 capsule, 0 Refills, Maintenance, 10/23/20 13:20:00 EDT, Capsule, [facility] #[id number], Partial fill upon patient request if the prescription is for a schedule II opioid... Start Date: 10/23/20 Status: Ordered ZyrTEC 10 mg oral tablet 1 tablet = 10 mg, By Mouth, Daily, # 30 tablet, 3 Refills, Maintenance, 10/23/20 13:21:00 EDT, Tablet, [facility] #[id number], 150, cm, 10/23/20 13:15:00 EDT, Height, 60.8, kg, 08/05/20 11:45:00EDT, Dry Weight Start Date: 10/23/20 Status: Ordered Problem List Condition Effective Dates Status Health Status Inform ant Back pain(Confirmed) Active Renal stones(Confirmed) Active Migraine(Confirmed) Active Vital Signs Most recent to oldest [Reference Range]: 1 2 3 Oxygen Saturation [94-100 %] 100 % (02/10/21 6:18 PM) 100 % (02/10/21 1:20 PM) 100 % (02/10/21 1:15 PM) Pulse Rate [55-90 bpm] 79 bpm (02/10/21 6:18 PM) 94 bpm *H* (02/10/21 1:20 PM) 103 bpm *H* (02/10/21 1:15 PM) Blood Pressure [90-138/55-84 mm Hg] 146/86mm Hg *H* (02/10/21 6:18 PM) 156/106mm Hg *H* (02/10/21 1:15 PM) Respiratory Rate [16-30 br/min] 12 br/min *L* (02/10/21 6:18 PM) 18 br/min (02/10/21 1:20 PM) 16 br/min (02/10/21 1:15 PM) Temperature [96.8-100.4 DegF] 98.1 DegF (02/10/21 6:18 PM) 97.8 DegF (02/10/21 1:15 PM) Mode of Delivery (Oxygen) Room air (02/10/21 6:18 PM) Room air (02/10/21 1:15 PM) Blood pressure sites Arm, right (02/10/21 6:18 PM) Arm, right (02/10/21 1:15 PM) Temperature Route Oral (02/10/21 6:18 PM) Oral (02/10/21 1:15 PM) Social History Social History Type Response Smoking Status Never smoker entered on: 07/28/15 Sex
--- OUTSIDE RECORDS SUMMARY | 2022-09-09 10:42 | XMS_ITS | Continuity of Care Document ---
Author Name Unknown Organization [facility] Address [address] [place] [address]- Care Team Providers Care Power Driven Brush Maker Name Role Phone Prior Wesly GRAYSON Primary Care Physician [phone] [place] [facility] [place] - 08/15/[address] [address] [facility] Attending Physician: Brittany Swartz MD Allergies, Adverse Reactions, Alerts Substance Reaction [...] Print Requisition Start Date: 12/29/16 Status: Ordered Fioricet oral capsule 1 capsule, By Mouth, Every 4 hours, PRN as needed, # 30 capsule, 0 Refills, Maintenance, 08/08/19 16:00:00 EDT, Capsule, [facility] #[id number], 1 capsule By Mouth Every 4 hours,PRN:as needed, 152.4, cm, 04/09/19 11:38:00 EST, Height, 61.5, kg, 1... Start Date: 08/08/19 Status: Ordered ibuprofen 600 mg oral tablet [...] EST, Tablet Start Date: 02/26/19 Status: Ordered ondansetron 4 mg oral tablet, disintegrating 1 tablet = 4 mg, By Mouth, Every 8 hours, PRN Nausea & Vomiting, # 6 tablet, 0 Refills, Maintenance, 08/08/19 15:59:00 EDT, Tablet, [facility] #[id number], 152.4, cm, 04/09/19 11:38:00 EST, Height, 61.5, [...] 07/22/15 9:50:00 Start Date: 07/22/15 Status: Ordered Problem List Condition Effective Dates Status Health Status Inform ant Back pain(Confirmed) Active Renal stones(Confirmed) Active Migraine(Confirmed) Active Social History Social History Type Response Smoking Status Never smoker entered on: 07/28/15 Sex Female
--- OUTSIDE RECORDS SUMMARY | 2022-09-09 10:42 | XMS_ITS | Continuity of Care Document ---
Author Name Unknown Organization [facility] Address [address] [place] [address]- Care Team Providers Care Rx Specialist Name Role Sewer Contractor Felix GARCIA Primary Care Physician [phone] [facility]counter [facility] Date[facility]): [facility] - 06/10/[address] [address] Attending Physician: Not on Staff, Attending MD Allergies, Adverse Reactions, Alerts Substance Reaction [...] capsule, 0 Refills, Maintenance, 04/26/20 18:43:00 EST, [facility] #[id number], 1 capsule By Mouth Every 4 hours,PRN: NEEDED, 152.4, cm,01/22/20 11:23:00 EDT, Height, 61.5, kg, 02/21/19 1... Start Date: 04/26/20 Status: Ordered amitriptyline 25 mg oral tablet 50 mg, 2, tablet, By Mouth, Daily at bedtime, # 180 tablet, Refills 3, Tot. Refills 3, Maintenance,03/22/20 17:53:00 EST, Route to Pharmacy Electronically, [facility] #[id number], 152.4, cm, 01/22/20 11:23:00 EDT, Height, 61.5, kg, 02/21/19 10:4... Start Date: 03/22/20 Stop Date: 03/17/21 Status: Ordered Benezett Saline Mist 0.65% nasal spray 2 sprays, Nares, Both, 4 times a day, # 45 mL, 0 Refills, Maintenance, 03/19/20 10:33:00 EST, [facility] #[id number], Partial fill upon patient request if the prescription is for a schedule II opioid drug., 2 sprays Nares, Both 4 times a day, 152... Start Date: 03/19/20 Status: Ordered cholecalciferol 2000 intl units oral capsule 1 capsule = 2,000 International_Units, By Mouth, Daily, # 90 capsule, 1 Refills, Maintenance, 01/28/20 7:32:00 EDT, Capsule, [facility] #[id number], 152.4, cm, 01/22/20 11:23:00 EDT, Height, 61.5, kg, 02/21/19 10:49:00 EST, Dry Weight Start Date: 01/28/20 Stop Date: 07/26/20 Status: Ordered dextromethorphan-guaifenesin 10 mg-200 mg/5 mL oral liquid 5 mL, By Mouth, Every 6 hours, PRN for cough, # 200 mL, 0 Refills, Maintenance, 03/19/20 10:35:00 EST, Liquid, [facility] #[id number], Partial fill upon patient request if the prescription is for a schedule II opioid drug., 5 mL By Mouth Every 6... Start Date: 03/19/20 Status: Ordered lidocaine 5% topical film 1 patch, Topically, Daily, PRN Pain , Mild, remove after 12 hours, # 13 each, 0 Refills, Maintenance, 05/11/20 11:28:00 EST, Film, [facility] #[id number], Partial fill upon patient request if the prescription is for a schedule II opioid drug., 1... Start Date: 05/11/20 Status: Ordered MiraLax oral powder for reconstitution = 17 Gm, By Mouth, Daily, dissolve in water before taking, # 255 Gm, 0 Refills, Maintenance, 05/04/20 12:19:00 EST, REC Powder, [facility] #[id number], Partial fill upon patient request if the prescription is for a schedule II opioid drug., 17 Gm... Start Date: 05/04/20 Status: Ordered naproxen 500 mg oral delayed release tablet 1 tablet = 500 mg, By Mouth, 2 times a day, # 60 tablet, 2 Refills, Maintenance, 05/11/20 11:26:00 EST, EC Tablet, [facility] #[id number], Partial fill upon patient request if the prescription is for a schedule II opioid drug., 150, cm, 05/11/20... Start Date: 05/11/20 Status: Ordered omeprazole 40 mg oral enteric coated capsule 1 capsule = 40 mg, By Mouth, 2 times a day, # 60 capsule, 2 Refills, Maintenance, 03/25/20 9:29:00 EST, CR Capsule, [facility] #[id number], 152.4, cm, 01/22/20 11:23:00 EDT, Height, 61.5, kg, 02/21/19 10:49:00 EST, Dry Weight Start Date: 03/25/20 Stop Date: 06/23/20 Status: Ordered ondansetron 4 mg oral tablet, disintegrating 1 tablet = 4 mg, By Mouth, Every 8 hours, PRN as needed for nausea/vomiting, # 30 tablet, 0 Refills, Maintenance, 04/28/20 5:09:00 EST, DIS Tablet, [facility] #[id number], Partial fill upon patient request if the prescription is for a schedule II... Start Date: 04/28/20 Stop Date: 05/05/20 Status: Ordered Tylenol 325 mg oral capsule 2 capsule = 650 mg, By Mouth, Every 4 hours, PRN as needed for fever, # 90 capsule, 0 Refills, Maintenance, 03/19/20 10:31:00 EST, Capsule, [facility] #[id number], Partial fill upon patient request if the prescription is for a schedule II opioid... Start Date: 03/19/20 Status: Ordered ZyrTEC 10 mg oral tablet 1 tablet = 10 mg, By Mouth, Daily, # 30 tablet, 3 Refills, Maintenance, 09/30/19 14:57:00 EDT, Tablet, [facility] #[id number], 152.4, cm, 04/09/19 11:38:00 EST, Height, 61.5, kg, 02/21/19 10:49:00 EST, Dry Weight Start Date: 09/30/19 Status: Ordered Problem List Condition Effective Dates Status Health Status Inform ant Back pain(Confirmed) Active Renal stones(Confirmed) Active Migraine(Confirmed) Active Social History Social History Type Response Smoking Status Never smoker entered on: 07/28/15 Sex Female
--- OUTSIDE RECORDS SUMMARY | 2022-09-09 10:42 | XMS_ITS | Continuity of Care Document ---
Author Name Unknown Organization [facility] Address [address] [place] [address]- Care Team Providers Care Installation Supervisor Name Role Director Of Parks And RecreationFelix Denise MD Primary Care Physician [facility] Date[facility]s): 06/28/22 - 07/28/[address] [address]- Allergies, Adverse Reactions, Alerts Substance Reaction Severity [...] capsule, 3 Refills, Maintenance, 04/29/21 10:53:00 EST, [facility] #[id number], 1 capsule By Mouth Every 4 hours,PRN: NEEDED, 150, cm, 02/17/21 9:13:00 EST, Height, 60.2, kg, 11/18/20 16:2... Start Date: 04/29/21 Status: Ordered amitriptyline 50 mg oral tablet 1.5 tablet = 75 mg, By Mouth, Daily at supper, # 45 tablet, 6 Refills, Maintenance, 06/10/22 10:30:00 EST, Tablet, [facility] #[id number], Partial fill upon patient request if the [...] 30 tablet, 11 Refills, 04/29/21 11:04:00 EST, [facility] #[id number], 150, cm, 02/17/21 9:13:00 EST, Height, 60.2, kg, 11/18/20 16:28:00 EDT, Dry Weight Start Date: 04/29/21 Status: Ordered drospirenone-ethinyl estradiol 3 mg-0.02 mg oral tablet 1 tablet, By Mouth, Daily, Maintenance Start Date: 08/18/21 Status: Ordered fluticasone 50 mcg/inh nasal spray See Instructions, SHAKE LIQUID AND USE 1 SPRAY IN EACH NOSTRIL TWICE DAILY, # 16 Gm, 0 Refills, [facility] #[id number], 30, SHAKE LIQUID AND USE 1 SPRAY IN EACH NOSTRIL TWICE DAILY, 150, cm, 02/08/21 15:46:00 EDT, Height, 60.2, kg, 11/18/20 16:28... Start Date: 02/15/21 Status: Ordered hydroCHLOROthiazide 12.5 mg oral capsule 1 capsule = 12.5 mg, By Mouth, Daily, # 30 capsule, 2 Refills, Maintenance, 01/19/22 17:34:00 EDT, Capsule, [facility] #[id number], 150, cm, 11/23/21 13:20:00 EDT, Height, 60.2, kg, 11/18/20 16:28:00 EDT, Dry Weight Start Date: 01/19/22 Status: Ordered lidocaine 2% topical gel with applicator 3 application, Topically, 3 times a day, PRN Pain , Mild, # 2 each, 0 Refills, Soft Stop, 04/21/22 8:51:00 EST, Gel, [facility] #[id number], Please give patient 1 month supply of topical lidocaine gel. Any formulatioon/strength that is covered by... Start Date: 04/21/22 Status: Ordered lidocaine 5% topical film 1 patch, Topically, Daily, remove patches after 12 hours, # 30 patch, 0 Refills, Maintenance, 02/10/21 18:52:00 EDT, [facility] #[id number], Partial fill upon patient request if the prescriptionis for a schedule II opioid drug., 1 patch Topicall... Start Date: 02/10/21 Stop Date: 03/12/21 Status: Ordered lidocaine 5% topical film 1 patch, Topically, Daily, REMOVE AFTER 12 HOURS NEEDED FOR PAIN, # 13 patch, 0 Refills, [facility] #[id number], 13, APPLY 1 PATCH TOPICALLY TO AFFECTED AREA EVERY DAY. REMOVE AFTER 12 HOURS NEEDED FOR PAIN, 150, cm, 11/18/20 16:25:00 EDT,... Start Date: 02/06/21 Status: Ordered MiraLax oral powder for reconstitution = 17 Gm, By Mouth, Daily, dissolve in water before taking, # 255 Gm, 1 Refills, Maintenance, 04/21/22 8:56:00 EST, REC Powder, [facility] #[id number], Partial fill upon patient request if the prescription is for a schedule II opioid drug., 17 Gm... Start Date: 04/21/22 Status: Ordered morphine 15 mg oral tablet, [...] day, # 60 tablet, 2 Refills, Maintenance, 05/12/22 10:47:00 EST, [facility] #[id number], 150, cm, 04/21/22 8:35:00 EST, Height, 60.2, kg, 11/18/20 16:28:00 EDT, DryWeight Start Date: 05/12/22 Status: Ordered omeprazole 40 mg oral enteric coated capsule 1 capsule, By Mouth, Daily, PRN NEEDED, # 30 capsule, 2 Refills, Maintenance, 05/13/22 12:46:00 EST, [facility] #[id number], 150, cm, 04/21/22 8:35:00 EST, Height, 60.2, kg, 11/18/20 16:28:00EDT, Dry Weight Start Date: 05/13/22 Status: Ordered Tylenol 325 mg oral capsule 2 capsule = 650 mg, By Mouth, Every 4 hours, PRN as needed for fever, # 90 capsule, 0 Refills, Maintenance, 10/23/20 13:20:00 EDT, Capsule, [facility] #[id number], Partial fill upon patient request if the [...] Team Personnel Name: Felix Denise MD Position: [facility] Primary Care Physician Member Role: PCP Address: Address: [address] [place] [address]- Name: Lexie Fernandez RN Position: [facility] RN Member Role: Primary Care Nurse Name: Jennifer Fink RN Position: [facility] RN Member Role: Primary Care Nurse Name: Bindu Drake RN Position: [facility] RN Member Role: Primary Care Nurse Name: Thomas Guerrero MD Position: [facility] VIDEO SYSTEMS ENGINEER MD Member Role: [employer] VIDEO SYSTEMS ENGINEER Physician Address: Address: [address] [place] [address] [facility], [place] [address]- Care Team Related Persons Name: CLARITZA MENDOZA Address: home [address] [place] [address] Name: IRENE LI Address: home [address] [place] [address]
--- OUTSIDE RECORDS SUMMARY | 2022-09-09 10:42 | XMS_ITS | Continuity of Care Document ---
Author Name Unknown Organization [facility] Address [address] [place] [address]- Care Team Providers Care Exchange Architect Name Role Architecture ConsultantFelix Denise MD Primary Care Physician [facility] Date(s): 05/27/22 - 06/26/[address] [address]- Allergies, Adverse Reactions, Alerts Substance Reaction Severity [...] capsule, 3 Refills, Maintenance, 04/29/21 10:53:00 EST, [facility] #[id number], 1 capsule By Mouth Every 4 hours,PRN: NEEDED, 150, cm, 02/17/21 9:13:00 EST, Height, 60.2, kg, 11/18/20 16:2... Start Date: 04/29/21 Status: Ordered amitriptyline 50 mg oral tablet 1.5 tablet = 75 mg, By Mouth, Daily at supper, # 45 tablet, 6 Refills, Maintenance, 06/10/22 10:30:00 EST, Tablet, [facility] #[id number], Partial fill upon patient request if the [...] 30 tablet, 11 Refills, 04/29/21 11:04:00 EST, [facility] #[id number], 150, cm, 02/17/21 9:13:00 EST, Height, 60.2, kg, 11/18/20 16:28:00 EDT, Dry Weight Start Date: 04/29/21 Status: Ordered drospirenone-ethinyl estradiol 3 mg-0.02 mg oral tablet 1 tablet, By Mouth, Daily, Maintenance Start Date: 08/18/21 Status: Ordered fluticasone 50 mcg/inh nasal spray See Instructions, SHAKE LIQUID AND USE 1 SPRAY IN EACH NOSTRIL TWICE DAILY, # 16 Gm, 0 Refills, [facility] #[id number], 30, SHAKE LIQUID AND USE 1 SPRAY IN EACH NOSTRIL TWICE DAILY, 150, cm, 02/08/21 15:46:00 EDT, Height, 60.2, kg, 11/18/20 16:28... Start Date: 02/15/21 Status: Ordered hydroCHLOROthiazide 12.5 mg oral capsule 1 capsule = 12.5 mg, By Mouth, Daily, # 30 capsule, 2 Refills, Maintenance, 01/19/22 17:34:00 EDT, Capsule, [facility] #[id number], 150, cm, 11/23/21 13:20:00 EDT, Height, 60.2, kg, 11/18/20 16:28:00 EDT, Dry Weight Start Date: 01/19/22 Status: Ordered lidocaine 2% topical gel with applicator 3 application, Topically, 3 times a day, PRN Pain , Mild, # 2 each, 0 Refills, Soft Stop, 04/21/22 8:51:00 EST, Gel, [facility] #[id number], Please give patient 1 month supply of topical lidocaine gel. Any formulatioon/strength that is covered by... Start Date: 04/21/22 Status: Ordered lidocaine 5% topical film 1 patch, Topically, Daily, remove patches after 12 hours, # 30 patch, 0 Refills, Maintenance, 02/10/21 18:52:00 EDT, [facility] #[id number], Partial fill upon patient request if the prescriptionis for a schedule II opioid drug., 1 patch Topicall... Start Date: 02/10/21 Stop Date: 03/12/21 Status: Ordered lidocaine 5% topical film 1 patch, Topically, Daily, REMOVE AFTER 12 HOURS NEEDED FOR PAIN, # 13 patch, 0 Refills, [facility] #[id number], 13, APPLY 1 PATCH TOPICALLY TO AFFECTED AREA EVERY DAY. REMOVE AFTER 12 HOURS NEEDED FOR PAIN, 150, cm, 11/18/20 16:25:00 EDT,... Start Date: 02/06/21 Status: Ordered MiraLax oral powder for reconstitution = 17 Gm, By Mouth, Daily, dissolve in water before taking, # 255 Gm, 1 Refills, Maintenance, 04/21/22 8:56:00 EST, REC Powder, [facility] #[id number], Partial fill upon patient request if the [...] tablet, 2 Refills, Maintenance, 05/12/22 10:47:00 EST, [facility] #[id number], 150, cm, 04/21/22 8:35:00 EST, Height, 60.2, kg, 11/18/20 16:28:00 EDT, DryWeight Start Date: 05/12/22 Status: Ordered omeprazole 40 mg oral enteric coated capsule 1 capsule, By Mouth, Daily, PRN NEEDED, # 30 capsule, 2 Refills, Maintenance, 05/13/22 12:46:00 EST, [facility] #[id number], 150, cm, 04/21/22 8:35:00 EST, Height, 60.2, kg, 11/18/20 16:28:00EDT, Dry Weight Start Date: 05/13/22 Status: Ordered Tylenol 325 mg oral capsule 2 capsule = 650 mg, By Mouth, Every 4 hours, PRN as needed for fever, # 90 capsule, 0 Refills, Maintenance, 10/23/20 13:20:00 EDT, Capsule, [facility] #[id number], Partial fill upon patient request if the [...] Team Personnel Name: Felix Denise MD Position: [facility] Primary Care Physician Member Role: PCP Address: Address: [address] [place] [address]- Name: Lexie Fernandez RN Position: [facility] RN Member Role: Primary Care Nurse Name: Jennifer Fink RN Position: [facility] RN Member Role: Primary Care Nurse Name: Bindu Drake RN Position: [facility] RN Member Role: Primary Care Nurse Name: Thomas Guerrero MD Position: [facility] POLICE STENOGRAPHER MD Member Role: [employer] POLICE STENOGRAPHER Physician Address: Address: [address] [place] [address], [place] [address]- Care Team Related Persons Name: CLARITZA MENDOZA Address: home [address] [place] [address] Name: IRENE LI Address: home [address] [place] [id number]
--- OUTSIDE RECORDS SUMMARY | 2022-09-09 10:42 | XMS_ITS | Continuity of Care Document ---
Author Name Unknown Organization [facility] Address [address] [place] [address]- Care Team Providers Care Bevel Polisher Name Role Phone Prior Wesly GRAYSON Primary Care Physician [phone] [facility] Date[facility]s): 11/28/19 - 12/28/[address] [address]- [facility] Allergies, Adverse Reactions, Alerts Substance Reaction [...] exceed 6 tablets or capsules daily., # 30 capsule, 0Refills, Acute 01/22/20 17:53:00 EDT, 12/23/19 17:5... Start Date: 12/23/19 Stop Date: 01/22/20 Status: Ordered amitriptyline 25 mg oral tablet 50 mg, 2, tablet, By Mouth, Daily at bedtime, # 180 tablet, Refills 0, Tot. Refills 0, Maintenance,12/23/19 17:53:00 EDT, Route to Pharmacy Electronically, [facility] #[id number], 152.4, cm, 10/08/19 15:59:00 EDT, Height, 61.5, kg, 02/21/19 10:4... Start Date: 12/23/19 Stop Date: 03/22/20 Status: Ordered cholecalciferol 1000 intl units oral tablet 1 tablet = 1,000 International_Units, By Mouth, Daily, # 30 tablet, 2 Refills, Maintenance, 10/03/19 13:04:00 EDT, [facility] #[id number], 152.4, cm, 04/09/19 11:38:00 EST, Height, 61.5, [...] 0 Refills, Maintenance, 08/08/19 15:59:00 EDT, Tablet, [facility] #[id number], 152.4, cm, 04/09/19 11:38:00 EST, Height, 61.5, [...] Date: 01/29/19 Stop Date: 02/18/19 Status: Ordered ZyrTEC 10 mg oral tablet 1 tablet = 10 mg, By Mouth, Daily, # 30 tablet, 3 Refills, Maintenance, 09/30/19 14:57:00 EDT, Tablet, [facility] #[id number], 152.4, cm, 04/09/19 11:38:00 EST, Height, 61.5, kg, 02/21/19 10:49:00 EST, Dry Weight Start Date: 09/30/19 Status: Ordered Problem List Condition Effective Dates Status Health Status Inform ant Back pain(Confirmed) Active Renal stones(Confirmed) Active Migraine(Confirmed) Active Social History Social History Type Response Smoking Status Never smoker entered on: 07/28/15 Sex Female
--- OUTSIDE RECORDS SUMMARY | 2022-09-09 10:42 | XMS_ITS | Continuity of Care Document ---
Author Name Unknown Organization [facility] Address [address] [place] [address]- Care Team Providers Care Anglesmith Name Role Network DeveloperFelix Denise MD Primary Care Physician [phone] Encounter [facility] [place] [id number] Date(s): 05/25/21 - 06/24/[address] [address] Attending Physician: Admtr, [id number] Admitting Physician: Admtr, [...] capsule, 3 Refills, Maintenance, 04/29/21 10:53:00 EST, [facility] #[id number], 1 capsule By Mouth Every 4 hours,PRN: NEEDED, 150, cm, 02/17/21 9:13:00 EST, Height, 60.2, kg, 11/18/20 16:2... Start Date: 04/29/21 Status: Ordered amitriptyline 25 mg oral tablet 50 mg, 2, tablet, By Mouth, Daily at bedtime, for 90 days, # 180 tablet, Refills 3, Tot. Refills 3,Hard Stop 10/18/21 13:21:00 EDT, 10/23/20 13:21:00 EDT, Route to Pharmacy Electronically, [facility] #[id number], 150, cm, 10/23/20 13:15:00 EDT,... Start Date: 10/23/20 Stop Date: 10/18/21 Status: Ordered cetirizine 10 mg oral tablet 1 tablet, By Mouth, Daily, as needed for itching/allergies, # 30 tablet, 11 Refills, 04/29/21 11:04:00 EST, [facility] #[id number], 150, cm, 02/17/21 9:13:00 EST, Height, 60.2, kg, 11/18/20 16:28:00 EDT, Dry Weight Start Date: 04/29/21 Status: Ordered fluticasone 50 mcg/inh nasal spray See Instructions, SHAKE LIQUID AND USE 1 SPRAY IN EACH NOSTRIL TWICE DAILY, # 16 Gm, 0 Refills, [facility] #[id number], 30, SHAKE LIQUID AND USE 1 SPRAY IN EACH NOSTRIL TWICE DAILY, 150, cm, 02/08/21 15:46:00 EDT, Height, 60.2, kg, 11/18/20 16:28... Start Date: 02/15/21 Status: Ordered lidocaine 5% topical film 1 patch, Topically, Daily, remove patches after 12 hours, # 30 patch, 0 Refills, Maintenance, 02/10/21 18:52:00 EDT, [facility] #[id number], Partial fill upon patient request if the prescriptionis for a schedule II opioid drug., 1 patch Topicall... Start Date: 02/10/21 Stop Date: 03/12/21 Status: Ordered lidocaine 5% topical film 1 patch, Topically, Daily, REMOVE AFTER 12 HOURS NEEDED FOR PAIN, # 13 patch, 0 Refills, [facility] #[id number], 13, APPLY 1 PATCH TOPICALLY TO AFFECTED AREA EVERY DAY. REMOVE AFTER 12 HOURS NEEDED FOR PAIN, 150, cm, 11/18/20 16:25:00 EDT,... Start Date: 02/06/21 Status: Ordered MiraLax oral powder for reconstitution = 17 Gm, By Mouth, Daily, dissolve in water before taking, # 255 Gm, 0 Refills, Maintenance, 10/23/20 13:22:00 EDT, REC Powder, [facility] #[id number], Partial fill upon patient request if the prescription is for a schedule II opioid drug., 17 Gm... Start Date: 10/23/20 Status: Ordered morphine 15 mg oral tablet, immediate release See Instructions, PRN Headache, As needed for severe migraine. Take 0.5-1 tablet (7.5-15mg) by mouth. If needed, repeat dose x 1 in 4 hours. Causes drowsiness. MA Nisha Checked, appropriate, # 8 tablet, 0 Refills, Maintenance, 04/29/21 10:57:00 EST,... Start Date: 04/29/21 Status: Ordered naproxen 500 mg oral tablet 1 tablet = 500 mg, By Mouth, 2 times a day, Take with food, only as needed for migraine headache., # 60 tablet, 0 Refills, Maintenance, 04/29/21 10:54:00 EST, Tablet, [facility] #[id number], Partial fill upon patient request if the prescription i... Start Date: 04/29/21 Status: Ordered omeprazole 40 mg oral enteric coated capsule 1 capsule, By Mouth, Daily, as needed, # 30 capsule, 11 Refills, Maintenance, 04/29/21 11:03:00 EST, [facility] #[id number], 150, cm, 02/17/21 9:13:00 EST, Height, 60.2, kg, 11/18/20 16:28:00 EDT, Dry Weight Start Date: 04/29/21 Status: Ordered omeprazole 40 mg oral enteric coated capsule See Instructions, TAKE 1 CAPSULE BY MOUTH TWICE DAILY, # 180 capsule, 0 Refills, [facility] #[id number], 150, cm, 02/17/21 9:13:00 EST, Height, 60.2, kg, 11/18/20 16:28:00 EDT, Dry Weight Start Date: 03/29/21 Status: Ordered predniSONE 10 mg oral tablet See Instructions, For acute migraine. Take with food. Day 1 = 40mg. Day 2 = 30mg. Day 3 = 20mg Day 4 = 10mg, # 10 tablet, 0 Refills, Maintenance, 04/29/21 10:56:00 EST, [facility] #[id number], Partial fill upon patient request if the prescrip... Start Date: 04/29/21 Status: Ordered SUMAtriptan 25 mg oral tablet 1 tablet = 25 mg, By Mouth, Once, At onset of headache. May repeat in 2 hours. Take with naproxen, # 9 tablet, 2 Refills, Soft Stop, 04/29/21 10:53:00 EST, Tablet, [facility] #[id number], Partial fill upon patient request if the prescription is... Start Date: 04/29/21 Status: Ordered Tylenol 325 mg oral capsule 2 capsule = 650 mg, By Mouth, Every 4 hours, PRN as needed for fever, # 90 capsule, 0 Refills, Maintenance, 10/23/20 13:20:00 EDT, Capsule, [facility] #[id number], Partial fill upon patient request if the [...]
--- OUTSIDE RECORDS SUMMARY | 2022-09-09 10:42 | XMS_ITS | Continuity of Care Document ---
Author Name Unknown Organization [facility] Address [address] [place] [address]- Care Team Providers Care Automobile Upholsterer Name Role Ring AttacherFelix Denise MD Primary Care Physician [phone] Encounter [facility] [place] [facility]CT R [id number] Date(s): 06/09/21 - 10/28/[address] [address] Discharge Disposition: A-D/C Home Attending Physician: Felix Denise MD Admitting Physician: Felix Denise MD Referring Physician: Felix Denise MD Allergies, Adverse [...] capsule, 3 Refills, Maintenance, 04/29/21 10:53:00 EST, [facility] #[id number], 1 capsule By Mouth Every 4 hours,PRN: NEEDED, 150, cm, 02/17/21 9:13:00 EST, Height, 60.2, kg, 11/18/20 16:2... Start Date: 04/29/21 Status: Ordered amitriptyline 50 mg oral tablet 2 tablet = 100 mg, By Mouth, Daily at supper, dose increase, # 60 tablet, 5 Refills, Maintenance, 08/16/21 11:32:00 EDT, Tablet, [facility] #[id number], Partial fill upon patient request if the [...] 30 tablet, 11 Refills, 04/29/21 11:04:00 EST, [facility] #[id number], 150, cm, 02/17/21 9:13:00 EST, Height, 60.2, kg, 11/18/20 16:28:00 EDT, Dry Weight Start Date: 04/29/21 Status: Ordered drospirenone-ethinyl estradiol 3 mg-0.02 mg oral tablet 1 tablet, By Mouth, Daily, Maintenance Start Date: 08/18/21 Status: Ordered fluticasone 50 mcg/inh nasal spray See Instructions, SHAKE LIQUID AND USE 1 SPRAY IN EACH NOSTRIL TWICE DAILY, # 16 Gm, 0 Refills, [facility] #[id number], 30, SHAKE LIQUID AND USE 1 SPRAY IN EACH NOSTRIL TWICE DAILY, 150, cm, 02/08/21 15:46:00 EDT, Height, 60.2, kg, 11/18/20 16:28... Start Date: 02/15/21 Status: Ordered hydroCHLOROthiazide 12.5 mg oral capsule 1 capsule = 12.5 mg, By Mouth, Daily, # 30 capsule, 1 Refills, Maintenance, 10/27/21 11:32:00 EDT, Capsule, [facility] #[id number], 150, cm, 10/27/21 11:15:00 EDT, Height, 60.2, kg, 11/18/20 16:28:00 EDT, Dry Weight Start Date: 10/27/21 Status: Ordered lidocaine 5% topical film 1 patch, Topically, Daily, remove patches after 12 hours, # 30 patch, 0 Refills, Maintenance, 02/10/21 18:52:00 EDT, [facility] #[id number], Partial fill upon patient request if the prescriptionis for a schedule II opioid drug., 1 patch Topicall... Start Date: 02/10/21 Stop Date: 03/12/21 Status: Ordered lidocaine 5% topical film 1 patch, Topically, Daily, REMOVE AFTER 12 HOURS NEEDED FOR PAIN, # 13 patch, 0 Refills, [facility] #[id number], 13, APPLY 1 PATCH TOPICALLY TO AFFECTED AREA EVERY DAY. REMOVE AFTER 12 HOURS NEEDED FOR PAIN, 150, cm, 11/18/20 16:25:00 EDT,... Start Date: 02/06/21 Status: Ordered MiraLax oral powder for reconstitution = 17 Gm, By Mouth, Daily, dissolve in water before taking, # 255 Gm, 0 Refills, Maintenance, 10/23/20 13:22:00 EDT, REC Powder, [facility] #[id number], Partial fill upon patient request if the [...] a day, # 60 tablet, 0 Refills, [facility] #[id number], 150, cm, 08/18/21 16:48:00 EDT, Height, 60.2, kg, 11/18/20 16:28:00 EDT, Dry Weight Start Date: 10/14/21 Status: Ordered omeprazole 40 mg oral enteric coated capsule 1 capsule, By Mouth, Daily, as needed, # 30 capsule, 11 Refills, Maintenance, 04/29/21 11:03:00 EST, [facility] #[id number], 150, cm, 02/17/21 9:13:00 EST, Height, 60.2, kg, 11/18/20 16:28:00 EDT, Dry Weight Start Date: 04/29/21 Status: Ordered omeprazole 40 mg oral enteric coated capsule See Instructions, TAKE 1 CAPSULE BY MOUTH TWICE DAILY, # 180 capsule, 0 Refills, [facility] #[id number], 150, cm, 02/17/21 9:13:00 EST, Height, 60.2, kg, 11/18/20 16:28:00 EDT, Dry Weight Start Date: 03/29/21 Status: Ordered predniSONE 10 mg oral tablet See Instructions, For acute migraine. Take with food. Day 1 = 40mg. Day 2 = 30mg. Day 3 = 20mg Day 4 = 10mg, # 10 tablet, 0 Refills, Maintenance, 04/29/21 10:56:00 EST, [facility] #[id number], Partial fill upon patient request if the prescrip... Start Date: 04/29/21 Status: Ordered SUMAtriptan 25 mg oral tablet 1 tablet = 25 mg, By Mouth, Once, At onset of headache. May repeat in 2 hours. Take with naproxen, # 9 tablet, 2 Refills, Soft Stop, 04/29/21 10:53:00 EST, Tablet, [facility] #[id number], Partial fill upon patient request if the prescription is... Start Date: 04/29/21 Status: Ordered SUMAtriptan 50 mg oral tablet 1 tablet = 50 mg, By Mouth, Daily, PRN for migraine headache, may repeat dose after 2 hours up to amax 2 tabs / 24hrs ,no more than 3 doses/week, # 9 tablet, 2 Refills, Acute 08/16/22 11:35:00 EDT, 08/16/21 11:35:00 EDT, Tablet, [facility]... Start Date: 08/16/21 Stop Date: 08/16/22 Status: Ordered Tylenol 325 mg oral capsule 2 capsule = 650 mg, By Mouth, Every 4 hours, PRN as needed for fever, # 90 capsule, 0 Refills, Maintenance, 10/23/20 13:20:00 EDT, [id number], Partial fill upon patient request if the [...]
--- OUTSIDE RECORDS SUMMARY | 2022-09-09 10:42 | XMS_ITS | Continuity of Care Document ---
Author Name Unknown Organization [facility] Address [address] [place] [address]- Care Team Providers Care Film Recordist Name Role Simulation EngineerFelix Denise MD Primary Care Physician En[place] [facility] [place] Date(s): 11/15/21 - 12/15/21 [facility] [address], [place] [address] Attending Physician: Admtr, [id number] Admitting Physician: [...] capsule, 3 Refills, Maintenance, 04/29/21 10:53:00 EST, [facility] #[id number], 1 capsule By Mouth Every 4 hours,PRN: NEEDED, 150, cm, 02/17/21 9:13:00 EST, Height, 60.2, kg, 08/11/21 16:2... Start Date: 04/29/21 Status: Ordered amitriptyline 50 mg oral tablet 2 tablet = 100 mg, By Mouth, Daily at supper, dose increase, # 60 tablet, 5 Refills, Maintenance, 08/16/21 11:32:00 EDT, Tablet, [facility] #[id number], Partial fill upon patient request if the [...] 30 tablet, 11 Refills, 04/29/21 11:04:00 EST, [facility] #[id number], 150, cm, 02/17/21 9:13:00 EST, Height, 60.2, kg, 11/18/20 16:28:00 EDT, Dry Weight Start Date: 04/29/21 Status: Ordered drospirenone-ethinyl estradiol 3 mg-0.02 mg oral tablet 1 tablet, By Mouth, Daily, Maintenance Start Date: 08/18/21 Status: Ordered fluticasone 50 mcg/inh nasal spray See Instructions, SHAKE LIQUID AND USE 1 SPRAY IN EACH NOSTRIL TWICE DAILY, # 16 Gm, 0 Refills, [facility] #[id number], 30, SHAKE LIQUID AND USE 1 SPRAY IN EACH NOSTRIL TWICE DAILY, 150, cm, 02/08/21 15:46:00 EDT, Height, 60.2, kg, 11/18/20 16:28... Start Date: 02/15/21 Status: Ordered hydroCHLOROthiazide 12.5 mg oral capsule 1 capsule = 12.5 mg, By Mouth, Daily, # 30 capsule, 1 Refills, Maintenance, 10/27/21 11:32:00 EDT, Capsule, [facility] #[id number], 150, cm, 10/27/21 11:15:00 EDT, Height, 60.2, kg, 11/18/20 16:28:00 EDT, Dry Weight Start Date: 10/27/21 Status: Ordered lidocaine 5% topical film 1 patch, Topically, Daily, remove patches after 12 hours, # 30 patch, 0 Refills, Maintenance, 02/10/21 18:52:00 EDT, [facility] #[id number], Partial fill upon patient request if the prescriptionis for a schedule II opioid drug., 1 patch Topicall... Start Date: 02/10/21 Stop Date: 03/12/21 Status: Ordered lidocaine 5% topical film 1 patch, Topically, Daily, REMOVE AFTER 12 HOURS NEEDED FOR PAIN, # 13 patch, 0 Refills, [facility] #[id number], 13, APPLY 1 PATCH TOPICALLY TO AFFECTED AREA EVERY DAY. REMOVE AFTER 12 HOURS NEEDED FOR PAIN, 150, cm, 11/18/20 16:25:00 EDT,... Start Date: 02/06/21 Status: Ordered MiraLax oral powder for reconstitution = 17 Gm, By Mouth, Daily, dissolve in water before taking, # 255 Gm, 0 Refills, Maintenance, 10/23/20 13:22:00 EDT, REC Powder, [facility] #[id number], Partial fill upon patient request if the [...] a day, # 60 tablet, 0 Refills, [facility] #[id number], 150, cm, 08/18/21 16:48:00 EDT, Height, 60.2, kg, 11/18/20 16:28:00 EDT, Dry Weight Start Date: 10/14/21 Status: Ordered omeprazole 40 mg oral enteric coated capsule 1 capsule, By Mouth, Daily, as needed, # 30 capsule, 11 Refills, Maintenance, 04/29/21 11:03:00 EST, [facility] #[id number], 150, cm, 02/17/21 9:13:00 EST, Height, 60.2, kg, 11/18/20 16:28:00 EDT, Dry Weight Start Date: 04/29/21 Status: Ordered omeprazole 40 mg oral enteric coated capsule See Instructions, TAKE 1 CAPSULE BY MOUTH TWICE DAILY, # 180 capsule, 0 Refills, [facility] #[id number], 150, cm, 02/17/21 9:13:00 EST, Height, 60.2, kg, 11/18/20 16:28:00 EDT, Dry Weight Start Date: 03/29/21 Status: Ordered predniSONE 10 mg oral tablet See Instructions, For acute migraine. Take with food. Day 1 = 40mg. Day 2 = 30mg. Day 3 = 20mg Day 4 = 10mg, # 10 tablet, 0 Refills, Maintenance, 04/29/21 10:56:00 EST, [facility] #[id number], Partial fill upon patient request if the prescrip... Start Date: 04/29/21 Status: Ordered SUMAtriptan 25 mg oral tablet 1 tablet = 25 mg, By Mouth, Once, At onset of headache. May repeat in 2 hours. Take with naproxen, # 9 tablet, 2 Refills, Soft Stop, 04/29/21 10:53:00 EST, Tablet, [facility] #[id number], Partial fill upon patient request if the prescription is... Start Date: 04/29/21 Status: Ordered SUMAtriptan 50 mg oral tablet 1 tablet = 50 mg, By Mouth, Daily, PRN for migraine headache, may repeat dose after 2 hours up to amax 2 tabs / 24hrs ,no more than 3 doses/week, # 9 tablet, 2 Refills, Acute 08/16/22 11:35:00 EDT, 08/16/21 11:35:00 EDT, Tablet, [facility]... Start Date: 08/16/21 Stop Date: 08/16/22 Status: Ordered Tylenol 325 mg oral capsule 2 capsule = 650 mg, By Mouth, Every 4 hours, PRN as needed for fever, # 90 capsule, 0 Refills, Maintenance, 10/23/20 13:20:00 EDT, [facility]apsule, [id number], Partial fill upon patient request if the [...] Status Never smoker entered on: 07/28/15 Sex Care Team Personnel Name: Felix Denise MD Address: [address] [place] [address]
--- OUTSIDE RECORDS SUMMARY | 2022-09-09 10:42 | XMS_ITS | Continuity of Care Document ---
Author Name Unknown Organization [facility] Address [address] [place] [address]- Care Team Providers Care Vp Patient Name Role Professional Bass FisherFelix Denise MD Primary Care Physician Encounter [facility] [place] Date(s): 06/16/21 - 07/24/[address] [address] Attending Physician: Felix Denise MD Admitting Physician: Felix Denise MD Allergies, Adverse Reactions, [...] capsule, 3 Refills, Maintenance, 04/29/21 10:53:00 EST, [facility] #[id number], 1 capsule By Mouth Every 4 hours,PRN: NEEDED, 150, cm, 02/17/21 9:13:00 EST, Height, 60.2, kg, 11/18/20 16:2... Start Date: 04/29/21 Status: Ordered amitriptyline 25 mg oral tablet 50 mg, 2, tablet, By Mouth, Daily at bedtime, for 90 days, # 180 tablet, Refills 3, Tot. Refills 3,Hard Stop 10/18/21 13:21:00 EDT, 10/23/20 13:21:00 EDT, Route to Pharmacy Electronically, [facility] #[id number], 150, cm, 10/23/20 13:15:00 EDT,... Start Date: 10/23/20 Stop Date: 10/18/21 Status: Ordered cetirizine 10 mg oral tablet 1 tablet, By Mouth, Daily, as needed for itching/allergies, # 30 tablet, 11 Refills, 04/29/21 11:04:00 EST, [facility] #[id number], 150, cm, 02/17/21 9:13:00 EST, Height, 60.2, kg, 11/18/20 16:28:00 EDT, Dry Weight Start Date: 04/29/21 Status: Ordered fluticasone 50 mcg/inh nasal spray See Instructions, SHAKE LIQUID AND USE 1 SPRAY IN EACH NOSTRIL TWICE DAILY, # 16 Gm, 0 Refills, [facility] #[id number], 30, SHAKE LIQUID AND USE 1 SPRAY IN EACH NOSTRIL TWICE DAILY, 150, cm, 02/08/21 15:46:00 EDT, Height, 60.2, kg, 11/18/20 16:28... Start Date: 02/15/21 Status: Ordered lidocaine 5% topical film 1 patch, Topically, Daily, remove patches after 12 hours, # 30 patch, 0 Refills, Maintenance, 02/10/21 18:52:00 EDT, [facility] #[id number], Partial fill upon patient request if the prescriptionis for a schedule II opioid drug., 1 patch Topicall... Start Date: 02/10/21 Stop Date: 03/12/21 Status: Ordered lidocaine 5% topical film 1 patch, Topically, Daily, REMOVE AFTER 12 HOURS NEEDED FOR PAIN, # 13 patch, 0 Refills, [facility] #[id number], 13, APPLY 1 PATCH TOPICALLY TO AFFECTED AREA EVERY DAY. REMOVE AFTER 12 HOURS NEEDED FOR PAIN, 150, cm, 11/18/20 16:25:00 EDT,... Start Date: 02/06/21 Status: Ordered MiraLax oral powder for reconstitution = 17 Gm, By Mouth, Daily, dissolve in water before taking, # 255 Gm, 0 Refills, Maintenance, 10/23/20 13:22:00 EDT, REC Powder, [facility] #[id number], Partial fill upon patient request if the [...] 0 Refills, Maintenance, 04/29/21 10:54:00 EST, Tablet, [facility] #[id number], Partial fill upon patient request if the prescription i... Start Date: 04/29/21 Status: Ordered omeprazole 40 mg oral enteric coated capsule 1 capsule, By Mouth, Daily, as needed, # 30 capsule, 11 Refills, Maintenance, 04/29/21 11:03:00 EST, [facility] #[id number], 150, cm, 02/17/21 9:13:00 EST, Height, 60.2, kg, 11/18/20 16:28:00 EDT, Dry Weight Start Date: 04/29/21 Status: Ordered omeprazole 40 mg oral enteric coated capsule See Instructions, TAKE 1 CAPSULE BY MOUTH TWICE DAILY, # 180 capsule, 0 Refills, [facility] #[id number], 150, cm, 02/17/21 9:13:00 EST, Height, 60.2, kg, 11/18/20 16:28:00 EDT, Dry Weight Start Date: 03/29/21 Status: Ordered predniSONE 10 mg oral tablet See Instructions, For acute migraine. Take with food. Day 1 = 40mg. Day 2 = 30mg. Day 3 = 20mg Day 4 = 10mg, # 10 tablet, 0 Refills, Maintenance, 04/29/21 10:56:00 EST, [facility] #[id number], Partial fill upon patient request if the prescrip... Start Date: 04/29/21 Status: Ordered SUMAtriptan 25 mg oral tablet 1 tablet = 25 mg, By Mouth, Once, At onset of headache. May repeat in 2 hours. Take with naproxen, # 9 tablet, 2 Refills, Soft Stop, 04/29/21 10:53:00 EST, Tablet, [facility] #[id number], Partial fill upon patient request if the prescription is... Start Date: 04/29/21 Status: Ordered Tylenol 325 mg oral capsule 2 capsule = 650 mg, By Mouth, Every 4 hours, PRN as needed for fever, # 90 capsule, 0 Refills, Maintenance, 10/23/20 13:20:00 EDT, Capsule, [facility] #[id number], Partial fill upon patient request if the [...]
--- OUTSIDE RECORDS SUMMARY | 2022-09-09 10:42 | XMS_ITS | Continuity of Care Document ---
Author Name Unknown Organization [facility] Address [address] [place] [address]- Care Team Providers Care Billboard Mechanic Name Role Phone Prior Wesly GRAYSON Primary Care Physician [phone] Encounter [facility] [place] Date(s): 04/27/20 - 04/28/[address] [address]- Encounter Diagnosis Pyelonephritis, acute(Final) - 04/28/20 Discharge Disposition: A-D/C Home Attending Physician: Jeana Souza MD Admitting Physician: Jeana Souza MD Referring Physician: Not on Staff, Referring [...] capsule, 0 Refills, Maintenance, 04/26/20 18:43:00 EST, [facility] #[id number], 1 capsule By Mouth Every 4 hours,PRN: NEEDED, 152.4, cm,01/22/20 11:23:00 EDT, Height, 61.5, kg, 02/21/19 1... Start Date: 04/26/20 Status: Ordered amitriptyline 25 mg oral tablet 50 mg, 2, tablet, By Mouth, Daily at bedtime, # 180 tablet, Refills 3, Tot. Refills 3, Maintenance,03/22/20 17:53:00 EST, Route to Pharmacy Electronically, [facility] #[id number], 152.4, cm, 01/22/20 11:23:00 EDT, Height, 61.5, kg, 02/21/19 10:4... Start Date: 03/22/20 Stop Date: 03/17/21 Status: Ordered Jolo Saline Mist 0.65% nasal spray 2 sprays, Nares, Both, 4 times a day, # 45 mL, 0 Refills, Maintenance, 03/19/20 10:33:00 EST, [facility] #[id number], Partial fill upon patient request if the prescription is for a schedule II opioid drug., 2 sprays Nares, Both 4 times a day, 152... Start Date: 03/19/20 Status: Ordered cholecalciferol 2000 intl units oral capsule 1 capsule = 2,000 International_Units, By Mouth, Daily, # 90 capsule, 1 Refills, Maintenance, 01/28/20 7:32:00 EDT, Capsule, [facility] #[id number], 152.4, cm, 01/22/20 11:23:00 EDT, Height, 61.5, kg, 02/21/19 10:49:00 EST, Dry Weight Start Date: 01/28/20 Stop Date: 07/26/20 Status: Ordered ciprofloxacin 500 mg oral tablet 1 tablet = 500 mg, By Mouth, Every 12 hours, for 7 days, # 14 tablet, 0 Refills, Acute 05/05/20 5:09:00 EST, 04/28/20 5:09:00 EST, Tablet, [facility] #[id number], Partial fill upon patient request if the prescription is for a schedule II opioid d... Start Date: 04/28/20 Stop Date: 05/05/20 Status: Ordered dextromethorphan-guaifenesin 10 mg-200 mg/5 mL oral liquid 5 mL, By Mouth, Every 6 hours, PRN for cough, # 200 mL, 0 Refills, Maintenance, 03/19/20 10:35:00 EST, Liquid, [facility] #[id number], Partial fill upon patient request if the prescription is for a schedule II opioid drug., 5 mL By Mouth Every 6... Start Date: 03/19/20 Status: Ordered Dilaudid Inj 0.5 mg, Injection, IV Push Slowly, Every 15 minutes for 2 doses/times, PRN for Pain , Moderate, andSBP greater than 100, STAT, 04/28/20 2:27:00 EST, Stop date Limited # of times Start Date: 04/28/20 Stop Date: 04/28/20 Status: Completed ibuprofen 200 mg oral tablet 400 mg, 2, tablet, By Mouth, Every 6 hours, # 100 tablet, Refills 0, Tot. Refills 0, Maintenance, 03/19/20 10:32:00 EST, Route to Pharmacy Electronically, [facility] #[id number], Partial fill upon patient request if the prescription is for a sche... Start Date: 03/19/20 Status: Ordered omeprazole 40 mg oral enteric coated capsule 1 capsule = 40 mg, By Mouth, 2 times a day, # 60 capsule, 2 Refills, Maintenance, 03/25/20 9:29:00 EST, CR Capsule, [facility] #[id number], 152.4, cm, 01/22/20 11:23:00 EDT, Height, 61.5, kg, 02/21/19 10:49:00 EST, Dry Weight Start Date: 03/25/20 Stop Date: 06/23/20 Status: Ordered ondansetron 4 mg oral tablet 1 tablet = 4 mg, By Mouth, Every 8 hours, # 90 tablet, 0 Refills, Maintenance, 03/30/20 9:51:00 EST, Tablet, [facility] #[id number], Partial fill upon patient request if the prescription is for a schedule II opioid drug., 152.4, cm, 01/22/20 11:2... Start Date: 03/30/20 Status: Ordered ondansetron 4 mg oral tablet, disintegrating 1 tablet = 4 mg, By Mouth, Every 8 hours, PRN as needed for nausea/vomiting, # 30 tablet, 0 Refills, Maintenance, 04/28/20 5:09:00 EST, DIS Tablet, [facility] #[id number], Partial fill upon patient request if the prescription is for a schedule II... Start Date: 04/28/20 Stop Date: 05/05/20 Status: Ordered oxyCODONE 5 mg oral tablet 5 mg, 1, tablet, By Mouth, Every 6 hours, PRN, for 3 days, # 12 tablet, Refills 0, Tot. Refills 0, Acute 05/01/20 5:10:00 EST, as needed for pain, 04/28/20 5:10:00 EST, Route to Pharmacy Electronically, [facility] #[id number], Partial fill upon p... Start Date: 04/28/20 Stop Date: 05/01/20 Status: Ordered Pyridium 100 mg oral tablet 1 tablet = 100 mg, By Mouth, 3 times a day, for 7 days, # 21 tablet, 0 Refills, Acute 05/05/20 5:08:00 EST, 04/28/20 5:08:00 EST, Tablet, [facility] #[id number], Partial fill upon patient request if the prescription is for a schedule II opioid Start Date: 04/28/20 Stop Date: 05/05/20 Status: Ordered Tylenol 325 mg oral capsule 2 capsule = 650 mg, By Mouth, Every 4 hours, PRN as needed for fever, # 90 capsule, 0 Refills, Maintenance, 03/19/20 10:31:00 EST, Capsule, [facility] #[id number], Partial fill upon patient request if the prescription is for a schedule II opioid... Start Date: 03/19/20 Status: Ordered ZyrTEC 10 mg oral tablet 1 tablet = 10 mg, By Mouth, Daily, # 30 tablet, 3 Refills, Maintenance, 09/30/19 14:57:00 EDT, Tablet, [facility] #[id number], 152.4, cm, 04/09/19 11:38:00 EST, Height, 61.5, [...] for Microbiology Reports Name Date Wet Prep 04/27/20 Urine Culture (URINE CULTURE) 04/27/20 Microbiology Reports TEST:Wet Prep STATUS:Auth (Verified) BODY SITE: SOURCE:VAGINA COLLECTED DATE/TIME:04/28/20 1:01 AM Wet Prep SPECIMEN DESCRIPTION : VAGINAL SPECIMEN SPECIAL REQUESTS : NONE DIRECT EXAM : 4+ WHITE BLOOD CELLS NO YEAST OBSERVED NO TRICHOMONAS OBSERVED NO CLUE CELLS OBSERVED REPORT STATUS : FINAL 04/28/2020 TEST:Urine Culture STATUS:Unauthenticated BODY SITE: SOURCE:URINE COLLECTED DATE/TIME:04/27/20 8:56 PM Urine Culture SPECIMEN DESCRIPTION : URINE CLEAN CATCH/MIDSTREAM SPECIAL REQUESTS : NONE Reflexed from [id number] REPORT STATUS : PRELIMINARY REPORT Vital Signs Most recent to oldest [Reference Range]: 1 2 3 Oxygen Saturation [94-100 %] 100 % (04/28/20 5:51 AM) 99 % (04/28/20 4:50 AM) 100 % (04/27/20 9:04 PM) Pulse Rate [55-90 bpm] 84 bpm (04/28/20 5:51 AM) 86 bpm (04/28/20 4:50 AM) 111 bpm *H* (04/27/20 9:04 PM) Blood Pressure [90-138/55-84 mm Hg] 134/86mm Hg (04/28/20 5:51 AM) 123/85mm Hg (04/28/20 4:50 AM) 137/103mm Hg (04/27/20 9:04 PM) Respiratory Rate [16-30 br/min] 18 br/min (04/28/20 5:51 AM) 17 br/min (04/28/20 4:53 AM) 17 br/min (04/28/20 4:50 AM) Temperature [96.8-100.4 DegF] 98.6 DegF (04/28/20 4:50 AM) 97.5 DegF (04/27/20 9:04 PM) Mode of Delivery (Oxygen) Room air (04/28/20 5:51 AM) Room air (04/28/20 4:50 AM) Room air (04/27/20 9:04 PM) Blood pressure sites Arm, left (04/28/20 4:50 AM) Arm, left (04/27/20 9:04 PM) Temperature Route Oral (04/28/20 4:50 AM) Oral (04/27/20 9:04 PM) Social History Social History Type Response Smoking Status Never smoker entered on: 07/28/15 Sex Female
--- OUTSIDE RECORDS SUMMARY | 2022-09-09 10:42 | XMS_ITS | Continuity of Care Document ---
Author Name Unknown Organization [facility] Address [address] [place] [address]- Care Team Providers Care Operations Assistant Name Role Director Of Search Engine MarketingFelix Denise MD Primary Care Physician [phone] Encounter [facility] [place] Date(s): 08/09/21 - 09/08/21 [facility] [address], [place] [address] Attending Physician: Admtr, Ar8 Admitting [...] capsule, 3 Refills, Maintenance, 04/29/21 10:53:00 EST, [facility] #[id number], 1 capsule By Mouth Every 4 hours,PRN: NEEDED, 150, cm, 02/17/21 9:13:00 EST, Height, 60.2, kg, 08/11/21 16:2... Start Date: 04/29/21 Status: Ordered amitriptyline 25 mg oral tablet 50 mg, 2, tablet, By Mouth, Daily at bedtime, for 90 days, # 180 tablet, Refills 3, Tot. Refills 3,Hard Stop 10/18/21 13:21:00 EDT, 10/23/20 13:21:00 EDT, Route to Pharmacy Electronically, [facility] #[id number], 150, cm, 10/23/20 13:15:00 EDT,... Start Date: 10/23/20 Stop Date: 10/18/21 Status: Ordered amitriptyline 50 mg oral tablet 2 tablet = 100 mg, By Mouth, Daily at supper, dose increase, # 60 tablet, 5 Refills, Maintenance, 08/16/21 11:32:00 EDT, Tablet, [facility] #[id number], Partial fill upon patient request if the prescription is for a schedule II opioid drug., 150,... Start Date: 08/16/21 Stop Date: 02/12/22 Status: Ordered cetirizine 10 mg oral tablet 1 tablet, By Mouth, Daily, as needed for itching/allergies, # 30 tablet, 11 Refills, 04/29/21 11:04:00 EST, [facility] #[id number], 150, cm, 02/17/21 9:13:00 EST, Height, 60.2, kg, 11/18/20 16:28:00 EDT, Dry Weight Start Date: 04/29/21 Status: Ordered drospirenone-ethinyl estradiol 3 mg-0.02 mg oral tablet 1 tablet, By Mouth, Daily, Maintenance Start Date: 08/18/21 Status: Ordered fluticasone 50 mcg/inh nasal spray See Instructions, SHAKE LIQUID AND USE 1 SPRAY IN EACH NOSTRIL TWICE DAILY, # 16 Gm, 0 Refills, [facility] #[id number], 30, SHAKE LIQUID AND USE 1 SPRAY IN EACH NOSTRIL TWICE DAILY, 150, cm, 02/08/21 15:46:00 EDT, Height, 60.2, kg, 11/18/20 16:28... Start Date: 02/15/21 Status: Ordered lidocaine 5% topical film 1 patch, Topically, Daily, remove patches after 12 hours, # 30 patch, 0 Refills, Maintenance, 02/10/21 18:52:00 EDT, [facility] #[id number], Partial fill upon patient request if the prescriptionis for a schedule II opioid drug., 1 patch Topicall... Start Date: 02/10/21 Stop Date: 03/12/21 Status: Ordered lidocaine 5% topical film 1 patch, Topically, Daily, REMOVE AFTER 12 HOURS NEEDED FOR PAIN, # 13 patch, 0 Refills, [facility] #[id number], 13, APPLY 1 PATCH TOPICALLY TO AFFECTED AREA EVERY DAY. REMOVE AFTER 12 HOURS NEEDED FOR PAIN, 150, cm, 11/18/20 16:25:00 EDT,... Start Date: 02/06/21 Status: Ordered MiraLax oral powder for reconstitution = 17 Gm, By Mouth, Daily, dissolve in water before taking, # 255 Gm, 0 Refills, Maintenance, 10/23/20 13:22:00 EDT, REC Powder, [facility] #[id number], Partial fill upon patient request if the [...] capsule, 11 Refills, Maintenance, 04/29/21 11:03:00 EST, [facility] #[id number], 150, cm, 02/17/21 9:13:00 EST, Height, 60.2, kg, 11/18/20 16:28:00 EDT, Dry Weight Start Date: 04/29/21 Status: Ordered omeprazole 40 mg oral enteric coated capsule See Instructions, TAKE 1 CAPSULE BY MOUTH TWICE DAILY, # 180 capsule, 0 Refills, [facility] #[id number], 150, cm, 02/17/21 9:13:00 EST, Height, 60.2, kg, 11/18/20 16:28:00 EDT, Dry Weight Start Date: 03/29/21 Status: Ordered predniSONE 10 mg oral tablet See Instructions, For acute migraine. Take with food. Day 1 = 40mg. Day 2 = 30mg. Day 3 = 20mg Day 4 = 10mg, # 10 tablet, 0 Refills, Maintenance, 04/29/21 10:56:00 EST, [facility] #[id number], Partial fill upon patient request if the prescrip... Start Date: 04/29/21 Status: Ordered SUMAtriptan 25 mg oral tablet 1 tablet = 25 mg, By Mouth, Once, At onset of headache. May repeat in 2 hours. Take with naproxen, # 9 tablet, 2 Refills, Soft Stop, 04/29/21 10:53:00 EST, Tablet, [facility] #[id number], Partial fill upon patient request if the prescription is... Start Date: 04/29/21 Status: Ordered SUMAtriptan 50 mg oral tablet 1 tablet = 50 mg, By Mouth, Daily, PRN for migraine headache, may repeat dose after 2 hours up to amax 2 tabs / 24hrs ,no more than 3 doses/week, # 9 tablet, 2 Refills, Acute 08/16/22 11:35:00 EDT, 08/16/21 11:35:00 EDT, Tablet, [facility]... Start Date: 08/16/21 Stop Date: 08/16/22 Status: Ordered Tylenol 325 mg oral capsule 2 capsule = 650 mg, By Mouth, Every 4 hours, PRN as needed for fever, # 90 capsule, 0 Refills, Maintenance, 10/23/20 13:20:00 EDT, Capsule, [facility] #[id number], Partial fill upon patient request if the [...]
--- OUTSIDE RECORDS SUMMARY | 2022-09-09 10:42 | XMS_ITS | Continuity of Care Document ---
Author Name Unknown Organization [facility] Address Unknown Care Team Providers Care Multimedia Journalist Name Role Body Shop TechnicianFelix Denise MD Primary Care Physician Encounter [facility] [place] [id number] Date(s): 06/01/21 - 09/29/21 [facility] Attending Physician: Clarence Mcpherson NP, Deny Admitting Physician: Clarence Mcpherson NP, Deny Referring Physician: Felix Denise MD Allergies, Adverse [...] capsule, 3 Refills, Maintenance, 04/29/21 10:53:00 EST, [facility] #[id number], 1 capsule By Mouth Every 4 hours,PRN: NEEDED, 150, cm, 02/17/21 9:13:00 EST, Height, 60.2, kg, 11/18/20 16:2... Start Date: 04/29/21 Status: Ordered amitriptyline 25 mg oral tablet 50 mg, 2, tablet, By Mouth, Daily at bedtime, for 90 days, # 180 tablet, Refills 3, Tot. Refills 3,Hard Stop 10/18/21 13:21:00 EDT, 10/23/20 13:21:00 EDT, Route to Pharmacy Electronically, [facility] #[id number], 150, cm, 10/23/20 13:15:00 EDT,... Start Date: 10/23/20 Stop Date: 10/18/21 Status: Ordered amitriptyline 50 mg oral tablet 2 tablet = 100 mg, By Mouth, Daily at supper, dose increase, # 60 tablet, 5 Refills, Maintenance, 08/16/21 11:32:00 EDT, Tablet, [facility] #[id number], Partial fill upon patient request if the prescription is for a schedule II opioid drug., 150,... Start Date: 08/16/21 Stop Date: 02/12/22 Status: Ordered cetirizine 10 mg oral tablet 1 tablet, By Mouth, Daily, as needed for itching/allergies, # 30 tablet, 11 Refills, 04/29/21 11:04:00 EST, [facility] #[id number], 150, cm, 02/17/21 9:13:00 EST, Height, 60.2, kg, 11/18/20 16:28:00 EDT, Dry Weight Start Date: 04/29/21 Status: Ordered drospirenone-ethinyl estradiol 3 mg-0.02 mg oral tablet 1 tablet, By Mouth, Daily, Maintenance Start Date: 08/18/21 Status: Ordered fluticasone 50 mcg/inh nasal spray See Instructions, SHAKE LIQUID AND USE 1 SPRAY IN EACH NOSTRIL TWICE DAILY, # 16 Gm, 0 Refills, [facility] #[id number], 30, SHAKE LIQUID AND USE 1 SPRAY IN EACH NOSTRIL TWICE DAILY, 150, cm, 02/08/21 15:46:00 EDT, Height, 60.2, kg, 11/18/20 16:28... Start Date: 02/15/21 Status: Ordered lidocaine 5% topical film 1 patch, Topically, Daily, remove patches after 12 hours, # 30 patch, 0 Refills, Maintenance, 02/10/21 18:52:00 EDT, [facility] #[id number], Partial fill upon patient request if the prescriptionis for a schedule II opioid drug., 1 patch Topicall... Start Date: 02/10/21 Stop Date: 03/12/21 Status: Ordered lidocaine 5% topical film 1 patch, Topically, Daily, REMOVE AFTER 12 HOURS NEEDED FOR PAIN, # 13 patch, 0 Refills, [facility] #[id number], 13, APPLY 1 PATCH TOPICALLY TO AFFECTED AREA EVERY DAY. REMOVE AFTER 12 HOURS NEEDED FOR PAIN, 150, cm, 11/18/20 16:25:00 EDT,... Start Date: 02/06/21 Status: Ordered MiraLax oral powder for reconstitution = 17 Gm, By Mouth, Daily, dissolve in water before taking, # 255 Gm, 0 Refills, Maintenance, 10/23/20 13:22:00 EDT, REC Powder, [facility] #[id number], Partial fill upon patient request if the [...] capsule, 11 Refills, Maintenance, 04/29/21 11:03:00 EST, [facility] #[id number], 150, cm, 02/17/21 9:13:00 EST, Height, 60.2, kg, 11/18/20 16:28:00 EDT, Dry Weight Start Date: 04/29/21 Status: Ordered omeprazole 40 mg oral enteric coated capsule See Instructions, TAKE 1 CAPSULE BY MOUTH TWICE DAILY, # 180 capsule, 0 Refills, [facility] #[id number], 150, cm, 02/17/21 9:13:00 EST, Height, 60.2, kg, 11/18/20 16:28:00 EDT, Dry Weight Start Date: 03/29/21 Status: Ordered predniSONE 10 mg oral tablet See Instructions, For acute migraine. Take with food. Day 1 = 40mg. Day 2 = 30mg. Day 3 = 20mg Day 4 = 10mg, # 10 tablet, 0 Refills, Maintenance, 04/29/21 10:56:00 EST, [facility] #[id number], Partial fill upon patient request if the prescrip... Start Date: 04/29/21 Status: Ordered SUMAtriptan 25 mg oral tablet 1 tablet = 25 mg, By Mouth, Once, At onset of headache. May repeat in 2 hours. Take with naproxen, # 9 tablet, 2 Refills, Soft Stop, 04/29/21 10:53:00 EST, Tablet, [facility] #[id number], Partial fill upon patient request if the prescription is... Start Date: 04/29/21 Status: Ordered SUMAtriptan 50 mg oral tablet 1 tablet = 50 mg, By Mouth, Daily, PRN for migraine headache, may repeat dose after 2 hours up to amax 2 tabs / 24hrs ,no more than 3 doses/week, # 9 tablet, 2 Refills, Acute 08/16/22 11:35:00 EDT, 08/16/21 11:35:00 EDT, Tablet, [facility]... Start Date: 08/16/21 Stop Date: 08/16/22 Status: Ordered Tylenol 325 mg oral capsule 2 capsule = 650 mg, By Mouth, Every 4 hours, PRN as needed for fever, # 90 capsule, 0 Refills, Maintenance, 10/23/20 13:20:00 EDT, Capsule, [facility] #[id number], Partial fill upon patient request if the [...]
--- OUTSIDE RECORDS SUMMARY | 2022-09-09 10:42 | XMS_ITS | Continuity of Care Document ---
Author Name Unknown Organization [facility] Address [address] [place] [address]- Care Team Providers Care Aquatics Director Name Role Divorce Lawyer MD, Felix Lama Primary Care Physician [phone] Encounter [facility] Date(s): 05/03/21 - 06/02/[address] [address] Allergies, Adverse Reactions, Alerts [...] capsule, 3 Refills, Maintenance, 04/29/21 10:53:00 EST, [facility] #[id number], 1 capsule By Mouth Every 4 hours,PRN: NEEDED, 150, cm, 02/17/21 9:13:00 EST, Height, 60.2, kg, 11/18/20 16:2... Start Date: 04/29/21 Status: Ordered amitriptyline 25 mg oral tablet 50 mg, 2, tablet, By Mouth, Daily at bedtime, for 90 days, # 180 tablet, Refills 3, Tot. Refills 3,Hard Stop 10/18/21 13:21:00 EDT, 10/23/20 13:21:00 EDT, Route to Pharmacy Electronically, [facility] #[id number], 150, cm, 10/23/20 13:15:00 EDT,... Start Date: 10/23/20 Stop Date: 10/18/21 Status: Ordered cetirizine 10 mg oral tablet 1 tablet, By Mouth, Daily, as needed for itching/allergies, # 30 tablet, 11 Refills, 04/29/21 11:04:00 EST, [facility] #[id number], 150, cm, 02/17/21 9:13:00 EST, Height, 60.2, kg, 11/18/20 16:28:00 EDT, Dry Weight Start Date: 04/29/21 Status: Ordered fluticasone 50 mcg/inh nasal spray See Instructions, SHAKE LIQUID AND USE 1 SPRAY IN EACH NOSTRIL TWICE DAILY, # 16 Gm, 0 Refills, [facility] #[id number], 30, SHAKE LIQUID AND USE 1 SPRAY IN EACH NOSTRIL TWICE DAILY, 150, cm, 02/08/21 15:46:00 EDT, Height, 60.2, kg, 11/18/20 16:28... Start Date: 02/15/21 Status: Ordered lidocaine 5% topical film 1 patch, Topically, Daily, remove patches after 12 hours, # 30 patch, 0 Refills, Maintenance, 02/10/21 18:52:00 EDT, [facility] #[id number], Partial fill upon patient request if the prescriptionis for a schedule II opioid drug., 1 patch Topicall... Start Date: 02/10/21 Stop Date: 03/12/21 Status: Ordered lidocaine 5% topical film 1 patch, Topically, Daily, REMOVE AFTER 12 HOURS NEEDED FOR PAIN, # 13 patch, 0 Refills, [facility] #[id number], 13, APPLY 1 PATCH TOPICALLY TO AFFECTED AREA EVERY DAY. REMOVE AFTER 12 HOURS NEEDED FOR PAIN, 150, cm, 11/18/20 16:25:00 EDT,... Start Date: 02/06/21 Status: Ordered MiraLax oral powder for reconstitution = 17 Gm, By Mouth, Daily, dissolve in water before taking, # 255 Gm, 0 Refills, Maintenance, 10/23/20 13:22:00 EDT, REC Powder, [facility] #[id number], Partial fill upon patient request if the [...] 0 Refills, Maintenance, 04/29/21 10:54:00 EST, Tablet, [facility] #[id number], Partial fill upon patient request if the prescription i... Start Date: 04/29/21 Status: Ordered omeprazole 40 mg oral enteric coated capsule 1 capsule, By Mouth, Daily, as needed, # 30 capsule, 11 Refills, Maintenance, 04/29/21 11:03:00 EST, [facility] #[id number], 150, cm, 02/17/21 9:13:00 EST, Height, 60.2, kg, 11/18/20 16:28:00 EDT, Dry Weight Start Date: 04/29/21 Status: Ordered omeprazole 40 mg oral enteric coated capsule See Instructions, TAKE 1 CAPSULE BY MOUTH TWICE DAILY, # 180 capsule, 0 Refills, [facility] #[id number], 150, cm, 02/17/21 9:13:00 EST, Height, 60.2, kg, 11/18/20 16:28:00 EDT, Dry Weight Start Date: 03/29/21 Status: Ordered predniSONE 10 mg oral tablet See Instructions, For acute migraine. Take with food. Day 1 = 40mg. Day 2 = 30mg. Day 3 = 20mg Day 4 = 10mg, # 10 tablet, 0 Refills, Maintenance, 04/29/21 10:56:00 EST, [facility] #[id number], Partial fill upon patient request if the prescrip... Start Date: 04/29/21 Status: Ordered SUMAtriptan 25 mg oral tablet 1 tablet = 25 mg, By Mouth, Once, At onset of headache. May repeat in 2 hours. Take with naproxen, # 9 tablet, 2 Refills, Soft Stop, 04/29/21 10:53:00 EST, Tablet, [facility] #[id number], Partial fill upon patient request if the prescription is... Start Date: 04/29/21 Status: Ordered Tylenol 325 mg oral capsule 2 capsule = 650 mg, By Mouth, Every 4 hours, PRN as needed for fever, # 90 capsule, 0 Refills, Maintenance, 10/23/20 13:20:00 EDT, Capsule, [facility] #[id number], Partial fill upon patient request if the [...]
--- OUTSIDE RECORDS SUMMARY | 2022-09-09 10:42 | XMS_ITS | Continuity of Care Document ---
Author Name Unknown Organization [facility] Address [address] [place] [address]- Care Team Providers Care Protection Specialist Name Role Phone Prior Wesly GRAYSON Primary Care Physician Encounter [facility] [place] Date(s): 12/24/19 - 01/23/[address] [address]- [facility] Allergies, Adverse Reactions, Alerts Substance Reaction Severity [...] 12/23/19 17:53:00 EDT, Route to Pharmacy Electronically, [facility] #[id number], 152.4, cm, 10/08/19 15:59:00 EDT... Start Date: 12/23/19 Stop Date: 03/22/20 Status: Ordered amitriptyline 25 mg oral tablet 50 mg, 2, tablet, By Mouth, Daily at bedtime, # 180 tablet, Refills 3, Tot. Refills 3, Maintenance,03/22/20 17:53:00 EST, Route to Pharmacy Electronically, [facility] #[id number], 152.4, cm, 01/22/20 11:23:00 EDT, Height, 61.5, kg, 02/21/19 10:4... Start Date: 03/22/20 Stop Date: 03/17/21 Status: Ordered cholecalciferol 1000 intl units oral tablet 1 tablet = 1,000 International_Units, By Mouth, Daily, # 30 tablet, 5 Refills, Maintenance, 01/23/20 14:11:00 EDT, [facility] #[id number], 152.4, cm, 01/22/20 11:23:00 EDT, Height, 61.5, kg, 02/21/19 10:49:00 EST, Dry Weight Start Date: 01/23/20 Status: Ordered Colace sodium 100 mg oral [...] 1 Refills, Maintenance, 01/22/20 11:50:00EDT, CR Capsule, [facility] #[id number], 152.4, cm, 01/22/20 11:23:00 EDT, Height, 61.5, kg, 02/21/19 10:49:00 EST, Dry Weight Start Date: 01/22/20 Stop Date: 03/22/20 Status: Ordered ondansetron 4 mg oral tablet, disintegrating 1 tablet = 4 mg, By Mouth, Every 8 hours, PRN Nausea & Vomiting, # 6 tablet, 0 Refills, Maintenance, 08/08/19 15:59:00 EDT, Tablet, [facility] #[id number], 152.4, cm, 04/09/19 11:38:00 EST, Height, 61.5, [...] 03/22/20 11:51:00 EST, 01/22/20 11:51:00 EDT, Tablet, [facility] #[id number], 152.4, cm,01/22/20 11:23:00 EDT, Height, 61.5, kg, 02/21/19 1... Start Date: 01/22/20 Stop Date: 03/22/20 Status: Ordered ZyrTEC 10 mg oral tablet 1 tablet = 10 mg, By Mouth, Daily, # 30 tablet, 3 Refills, Maintenance, 09/30/19 14:57:00 EDT, Tablet, [facility] #[id number], 152.4, cm, 04/09/19 11:38:00 EST, Height, 61.5, kg, 02/21/19 10:49:00 EST, Dry Weight Start Date: 09/30/19 Status: Ordered Problem List Condition Effective Dates Status Health Status Inform ant Back pain(Confirmed) Active Renal stones(Confirmed) Active Migraine(Confirmed) Active Social History Social History Type Response Smoking Status Never smoker entered on: 07/28/15 Sex Female
--- OUTSIDE RECORDS SUMMARY | 2022-09-09 10:42 | XMS_ITS | Continuity of Care Document ---
Author Name Unknown Organization [facility] Address [address] [place] [address]- Care Team Providers Care Neuropsychology Medical Consultant Name Role Phone Prior Wesly GRAYSON Primary Care Physician En[place] [facility] [place](s): 11/26/19 - 12/26/[address] [address]- [facility] Allergies, Adverse Reactions, Alerts Substance Reaction Severity [...] Maintenance,12/23/19 17:53:00 EDT, Route to Pharmacy Electronically, [facility] #[id number], 152.4, cm, 10/08/19 15:59:00 EDT, Height, 61.5, kg, 02/21/19 10:4... Start Date: 12/23/19 Stop Date: 03/22/20 Status: Ordered cholecalciferol 1000 intl units oral tablet 1 tablet = 1,000 International_Units, By Mouth, Daily, # 30 tablet, 2 Refills, Maintenance, 10/03/19 13:04:00 EDT, [facility] #[id number], 152.4, cm, 04/09/19 11:38:00 EST, Height, 61.5, [...] 0 Refills, Maintenance, 08/08/19 15:59:00 EDT, Tablet, [facility] #[id number], 152.4, cm, 04/09/19 11:38:00 EST, Height, 61.5, [...] 3 Refills, Maintenance, 09/30/19 14:57:00 EDT, Tablet, [facility] #[id number], 152.4, cm, 04/09/19 11:38:00 EST, Height, 61.5, kg, 02/21/19 10:49:00 EST, Dry Weight Start Date: 09/30/19 Status: Ordered Problem List Condition Effective Dates Status Health Status Inform ant Back pain(Confirmed) Active Renal stones(Confirmed) Active Migraine(Confirmed) Active Social History Social History Type Response Smoking Status Never smoker entered on: 07/28/15 Sex Female
--- OUTSIDE RECORDS SUMMARY | 2022-09-09 10:42 | XMS_ITS | Continuity of Care Document ---
Author Name Unknown Organization [facility] Address [address] [place] [address]- Care Team Providers Care County Director Welfare Name Role Phone Prior Wesly GRAYSON Primary Care Physician Encounter [facility] [place] Date(s): 04/01/19 - 05/02/[address] [address]- [facility] Attending Physician: Wesly Snell Admitting Physician: Wesly Snell Allergies, Adverse Reactions, Alerts Substance Reaction Severity [...]
--- OUTSIDE RECORDS SUMMARY | 2022-09-09 10:43 | XMS_ITS | Continuity of Care Document ---
Author Name Unknown Organization [facility] Address [address] [place] [address]- Care Team Providers Care Culinary Instructor Name Role SuperintendentFelix Denise MD Primary Care Physician [phone] Encounter [facility] [place] [id number] Date(s): 11/23/21 - 12/23/[address] [address]- Attending Physician: Admtr, Ar8 Admitting Physician: Admtr, [...] capsule, 3 Refills, Maintenance, 04/29/21 10:53:00 EST, [facility] #[id number], 1 capsule By Mouth Every 4 hours,PRN: NEEDED, 150, cm, 02/17/21 9:13:00 EST, Height, 60.2, kg, 11/18/20 16:2... Start Date: 04/29/21 Status: Ordered amitriptyline 50 mg oral tablet 2 tablet = 100 mg, By Mouth, Daily at supper, dose increase, # 60 tablet, 5 Refills, Maintenance, 08/16/21 11:32:00 EDT, Tablet, [facility] #[id number], Partial fill upon patient request if the [...] 30 tablet, 11 Refills, 04/29/21 11:04:00 EST, [facility] #[id number], 150, cm, 02/17/21 9:13:00 EST, Height, 60.2, kg, 11/18/20 16:28:00 EDT, Dry Weight Start Date: 04/29/21 Status: Ordered drospirenone-ethinyl estradiol 3 mg-0.02 mg oral tablet 1 tablet, By Mouth, Daily, Maintenance Start Date: 08/18/21 Status: Ordered fluticasone 50 mcg/inh nasal spray See Instructions, SHAKE LIQUID AND USE 1 SPRAY IN EACH NOSTRIL TWICE DAILY, # 16 Gm, 0 Refills, [facility] #[id number], 30, SHAKE LIQUID AND USE 1 SPRAY IN EACH NOSTRIL TWICE DAILY, 150, cm, 02/08/21 15:46:00 EDT, Height, 60.2, kg, 11/18/20 16:28... Start Date: 02/15/21 Status: Ordered hydroCHLOROthiazide 12.5 mg oral capsule 1 capsule = 12.5 mg, By Mouth, Daily, # 30 capsule, 1 Refills, Maintenance, 10/27/21 11:32:00 EDT, Capsule, [facility] #[id number], 150, cm, 10/27/21 11:15:00 EDT, Height, 60.2, kg, 11/18/20 16:28:00 EDT, Dry Weight Start Date: 10/27/21 Status: Ordered lidocaine 5% topical film 1 patch, Topically, Daily, remove patches after 12 hours, # 30 patch, 0 Refills, Maintenance, 02/10/21 18:52:00 EDT, [facility] #[id number], Partial fill upon patient request if the prescriptionis for a schedule II opioid drug., 1 patch Topicall... Start Date: 02/10/21 Stop Date: 03/12/21 Status: Ordered lidocaine 5% topical film 1 patch, Topically, Daily, REMOVE AFTER 12 HOURS NEEDED FOR PAIN, # 13 patch, 0 Refills, [facility] #[id number], 13, APPLY 1 PATCH TOPICALLY TO AFFECTED AREA EVERY DAY. REMOVE AFTER 12 HOURS NEEDED FOR PAIN, 150, cm, 11/18/20 16:25:00 EDT,... Start Date: 02/06/21 Status: Ordered MiraLax oral powder for reconstitution = 17 Gm, By Mouth, Daily, dissolve in water before taking, # 255 Gm, 0 Refills, Maintenance, 10/23/20 13:22:00 EDT, REC Powder, [facility] #[id number], Partial fill upon patient request if the [...] a day, # 60 tablet, 0 Refills, [facility] #[id number], 150, cm, 08/18/21 16:48:00 EDT, Height, 60.2, kg, 11/18/20 16:28:00 EDT, Dry Weight Start Date: 10/14/21 Status: Ordered omeprazole 40 mg oral enteric coated capsule 1 capsule, By Mouth, Daily, as needed, # 30 capsule, 11 Refills, Maintenance, 04/29/21 11:03:00 EST, [facility] #[id number], 150, cm, 02/17/21 9:13:00 EST, Height, 60.2, kg, 11/18/20 16:28:00 EDT, Dry Weight Start Date: 04/29/21 Status: Ordered omeprazole 40 mg oral enteric coated capsule See Instructions, TAKE 1 CAPSULE BY MOUTH TWICE DAILY, # 180 capsule, 0 Refills, [facility] #[id number], 150, cm, 02/17/21 9:13:00 EST, Height, 60.2, kg, 11/18/20 16:28:00 EDT, Dry Weight Start Date: 03/29/21 Status: Ordered predniSONE 10 mg oral tablet See Instructions, For acute migraine. Take with food. Day 1 = 40mg. Day 2 = 30mg. Day 3 = 20mg Day 4 = 10mg, # 10 tablet, 0 Refills, Maintenance, 04/29/21 10:56:00 EST, [facility] #[id number], Partial fill upon patient request if the prescrip... Start Date: 04/29/21 Status: Ordered SUMAtriptan 25 mg oral tablet 1 tablet = 25 mg, By Mouth, Once, At onset of headache. May repeat in 2 hours. Take with naproxen, # 9 tablet, 2 Refills, Soft Stop, 04/29/21 10:53:00 EST, Tablet, [facility] #[id number], Partial fill upon patient request if the prescription is... Start Date: 04/29/21 Status: Ordered SUMAtriptan 50 mg oral tablet 1 tablet = 50 mg, By Mouth, Daily, PRN for migraine headache, may repeat dose after 2 hours up to amax 2 tabs / 24hrs ,no more than 3 doses/week, # 9 tablet, 2 Refills, Acute 08/16/22 11:35:00 EDT, 08/16/21 11:35:00 EDT, Tablet, [facility] Start Date: 08/16/21 Stop Date: 08/16/22 Status: Ordered Tylenol 325 mg oral capsule 2 capsule = 650 mg, By Mouth, Every 4 hours, PRN as needed for fever, # 90 capsule, 0 Refills, Maintenance, 10/23/20 13:20:00 EDT, Capsule, [id number], Partial fill upon patient request if the [...] on: 07/28/15 Sex Care Team Personnel Name: Banker GARCIA, Felix Lama Address: [address] [place] [address]
--- OUTSIDE RECORDS SUMMARY | 2022-09-09 10:43 | XMS_ITS | Continuity of Care Document ---
Author Name Unknown Organization [facility] ter Address [address] [place] [address]- Care Team Providers Care High School Foreign Language Tutor Name Role Water Quality TechnicianFelix Denise MD Primary Care Physician [place] [facility] [place] [id number] Date(s): 11/24/21 - 12/30/[address] [address] Attending Physician: Perla Valentine Admitting Physician: Perla Valentine Referring Physician: Perla Valentine Allergies, Adverse Reactions, Alerts Substance Reaction Severity [...] capsule, 3 Refills, Maintenance, 04/29/21 10:53:00 EST, [facility] #[id number], 1 capsule By Mouth Every 4 hours,PRN: NEEDED, 150, cm, 02/17/21 9:13:00 EST, Height, 60.2, kg, 11/18/20 16:2... Start Date: 04/29/21 Status: Ordered amitriptyline 50 mg oral tablet 2 tablet = 100 mg, By Mouth, Daily at supper, dose increase, # 60 tablet, 5 Refills, Maintenance, 08/16/21 11:32:00 EDT, Tablet, [facility] #[id number], Partial fill upon patient request if the [...] 30 tablet, 11 Refills, 04/29/21 11:04:00 EST, [facility] #[id number], 150, cm, 02/17/21 9:13:00 EST, Height, 60.2, kg, 11/18/20 16:28:00 EDT, Dry Weight Start Date: 04/29/21 Status: Ordered drospirenone-ethinyl estradiol 3 mg-0.02 mg oral tablet 1 tablet, By Mouth, Daily, Maintenance Start Date: 08/18/21 Status: Ordered fluticasone 50 mcg/inh nasal spray See Instructions, SHAKE LIQUID AND USE 1 SPRAY IN EACH NOSTRIL TWICE DAILY, # 16 Gm, 0 Refills, [facility] #[id number], 30, SHAKE LIQUID AND USE 1 SPRAY IN EACH NOSTRIL TWICE DAILY, 150, cm, 02/08/21 15:46:00 EDT, Height, 60.2, kg, 11/18/20 16:28... Start Date: 02/15/21 Status: Ordered hydroCHLOROthiazide 12.5 mg oral capsule 1 capsule = 12.5 mg, By Mouth, Daily, # 30 capsule, 1 Refills, Maintenance, 10/27/21 11:32:00 EDT, Capsule, [facility] #[id number], 150, cm, 10/27/21 11:15:00 EDT, Height, 60.2, kg, 11/18/20 16:28:00 EDT, Dry Weight Start Date: 10/27/21 Status: Ordered lidocaine 5% topical film 1 patch, Topically, Daily, remove patches after 12 hours, # 30 patch, 0 Refills, Maintenance, 02/10/21 18:52:00 EDT, [facility] #[id number], Partial fill upon patient request if the prescriptionis for a schedule II opioid drug., 1 patch Topicall... Start Date: 02/10/21 Stop Date: 03/12/21 Status: Ordered lidocaine 5% topical film 1 patch, Topically, Daily, REMOVE AFTER 12 HOURS NEEDED FOR PAIN, # 13 patch, 0 Refills, [facility] #[id number], 13, APPLY 1 PATCH TOPICALLY TO AFFECTED AREA EVERY DAY. REMOVE AFTER 12 HOURS NEEDED FOR PAIN, 150, cm, 11/18/20 16:25:00 EDT,... Start Date: 02/06/21 Status: Ordered MiraLax oral powder for reconstitution = 17 Gm, By Mouth, Daily, dissolve in water before taking, # 255 Gm, 0 Refills, Maintenance, 10/23/20 13:22:00 EDT, REC Powder, [facility] #[id number], Partial fill upon patient request if the [...] a day, # 60 tablet, 0 Refills, [facility] #[id number], 150, cm, 08/18/21 16:48:00 EDT, Height, 60.2, kg, 11/18/20 16:28:00 EDT, Dry Weight Start Date: 10/14/21 Status: Ordered omeprazole 40 mg oral enteric coated capsule 1 capsule, By Mouth, Daily, as needed, # 30 capsule, 11 Refills, Maintenance, 04/29/21 11:03:00 EST, [facility] #[id number], 150, cm, 02/17/21 9:13:00 EST, Height, 60.2, kg, 11/18/20 16:28:00 EDT, Dry Weight Start Date: 04/29/21 Status: Ordered omeprazole 40 mg oral enteric coated capsule See Instructions, TAKE 1 CAPSULE BY MOUTH TWICE DAILY, # 180 capsule, 0 Refills, [facility] #[id number], 150, cm, 02/17/21 9:13:00 EST, Height, 60.2, kg, 11/18/20 16:28:00 EDT, Dry Weight Start Date: 03/29/21 Status: Ordered predniSONE 10 mg oral tablet See Instructions, For acute migraine. Take with food. Day 1 = 40mg. Day 2 = 30mg. Day 3 = 20mg Day 4 = 10mg, # 10 tablet, 0 Refills, Maintenance, 04/29/21 10:56:00 EST, [facility] #[id number], Partial fill upon patient request if the prescrip... Start Date: 04/29/21 Status: Ordered SUMAtriptan 25 mg oral tablet 1 tablet = 25 mg, By Mouth, Once, At onset of headache. May repeat in 2 hours. Take with naproxen, # 9 tablet, 2 Refills, Soft Stop, 04/29/21 10:53:00 EST, Tablet, [facility] #[id number], Partial fill upon patient request if the prescription is... Start Date: 04/29/21 Status: Ordered SUMAtriptan 50 mg oral tablet 1 tablet = 50 mg, By Mouth, Daily, PRN for migraine headache, may repeat dose after 2 hours up to amax 2 tabs / 24hrs ,no more than 3 doses/week, # 9 tablet, 2 Refills, Acute 08/16/22 11:35:00 EDT, 08/16/21 11:35:00 EDT, Tablet, [facility]... Start Date: 08/16/21 Stop Date: 08/16/22 Status: Ordered Tylenol 325 mg oral capsule 2 capsule = 650 mg, By Mouth, Every 4 hours, PRN as needed for fever, # 90 capsule, 0 Refills, Maintenance, 10/23/20 13:20:00 EDT, Capsule, [facility] #[id number], Partial fill upon patient request if the [...] Personnel Name: Banker GARCIA, Felix Lama Address: [address] [place] [address]
--- OUTSIDE RECORDS SUMMARY | 2022-09-09 10:43 | XMS_ITS | Continuity of Care Document ---
Author Name Unknown Organization [facility] Address [address] [place] [id number]- Care Team Providers Care Alodize Machine Operator Name Role Phone Prior Wesly GRAYSON Primary Care Physician Encounter [facility] [place] Date(s): 05/31/19 - 06/10/[address] [address]- [facility] Attending Physician: AdmLance barger Admitting Physician: Admtr, Ar8 Referring Physician: Admtr, [...]
--- OUTSIDE RECORDS SUMMARY | 2022-09-09 10:43 | XMS_ITS | Continuity of Care Document ---
Author Name Unknown Organization [facility] Address [address] [place] [address]- Care Team Providers Care Computational Physicist Name Role Dice Table PersonFelix Denise MD Primary Care Physician Encounter [facility] [place] [facility] [id number] Date(s): 10/23/20 - 11/22/[address] [address]- Attending Physician: Admtr, Ar8 Admitting Physician: Admtr, [...] capsule, 0 Refills, Maintenance, 09/23/20 15:01:00 EDT, [facility] #[id number], 1 capsule By Mouth Every 4 hours,PRN: NEEDED, 150, cm, 09/23/20 13:41:00 EDT, Height, 60.8, kg, 08/05/20 11:... Start Date: 09/23/20 Status: Ordered amitriptyline 25 mg oral tablet 50 mg, 2, tablet, By Mouth, Daily at bedtime, # 180 tablet, Refills 3, Tot. Refills 3, Maintenance,10/23/20 13:21:00 EDT, Route to Pharmacy Electronically, [facility] #[id number], 150, cm, 10/23/20 13:15:00 EDT, Height, 60.8, kg, 08/05/20 11:45:... Start Date: 10/23/20 Stop Date: 10/18/21 Status: Ordered Bactrim DS 800 mg-160 mg oral tablet 1 tablet, By Mouth, Every 12 hours, for 7 days, # 14 tablet, 0 Refills, Acute 11/25/20 17:16:00 EDT, 11/18/20 17:16:00 EDT, Tablet, [facility] #[id number], Partial fill upon patient request if the prescription is for a schedule II opioid drug., 1... Start Date: 11/18/20 Stop Date: 11/25/20 Status: Ordered cholecalciferol 2000 intl units oral capsule 1 capsule = 2,000 International_Units, By Mouth, Daily, # 90 capsule, 1 Refills, Maintenance, 01/28/20 7:32:00 EDT, Capsule, [facility] #[id number], 152.4, cm, 01/22/20 11:23:00 EDT, Height, 61.5, kg, 02/21/19 10:49:00 EST, Dry Weight Start Date: 01/28/20 Stop Date: 07/26/20 Status: Ordered Flonase 50 mcg/inh nasal spray 1 sprays, Nares, Both, 2 times a day, # 16 Gm, 2 Refills, Maintenance, 10/23/20 13:21:00 EDT, [place], [facility] #[id number], Partial fill upon patient request if the prescription is for a schedule II opioid drug., 1 sprays Nares, Both 2 times a d... Start Date: 10/23/20 Status: Ordered MiraLax oral powder for reconstitution = 17 Gm, By Mouth, Daily, dissolve in water before taking, # 255 Gm, 0 Refills, Maintenance, 10/23/20 13:22:00 EDT, REC Powder, [facility] #[id number], Partial fill upon patient request if the prescription is for a schedule II opioid drug., 17 Gm... Start Date: 10/23/20 Status: Ordered naproxen 500 mg oral delayed release tablet 1 tablet = 500 mg, By Mouth, 2 times a day, # 60 tablet, 2 Refills, Maintenance, 10/23/20 13:21:00 EDT, EC Tablet, [facility] #[id number], Partial fill upon patient request if the prescription is for a schedule II opioid drug., 150, cm, 10/23/20... Start Date: 10/23/20 Status: Ordered omeprazole 40 mg oral enteric coated capsule 1 capsule, By Mouth, 2 times a day, # 60 capsule, 1 Refills, Maintenance, 10/23/20 13:22:00 EDT, [facility] #[id number], 150, cm, 10/23/20 13:15:00 EDT, Height, 60.8, kg, 08/05/20 11:45:00 EDT, Dry Weight Start Date: 10/23/20 Status: Ordered propranolol 60 mg oral capsule, extended release 60 mg, 1, capsule, By Mouth, Daily, # 30 capsule, Refills 1, Tot. Refills 1, Maintenance, 10/23/20 13:54:00 EDT, Route to Pharmacy Electronically, [facility] #[id number], Partial fill upon patient request if the prescription is for a schedule II... Start Date: 10/23/20 Status: Ordered propranolol 60 mg oral capsule, extended release See Instructions, TAKE 1 CAPSULE BY MOUTH DAILY, # 90 capsule, Refills 0, Maintenance, InstructionsReplace Required Details, Route to Pharmacy Electronically, [facility] #[id number], 150, cm, 10/23/20 13:44:00 EDT, Height, 60.8, kg, 08/05/20 11:... Start Date: 10/23/20 Status: Ordered SUMAtriptan 25 mg oral tablet 1 tablet = 25 mg, By Mouth, Once, At onset of headache. May repeat in 2 hours, # 18 tablet, 0 Refills, Soft Stop, 10/23/20 13:55:00 EDT, Tablet, [facility] #[id number], Partial fill upon patientrequest if the prescription is for a schedule II op... Start Date: 10/23/20 Status: Ordered Tylenol 325 mg oral capsule 2 capsule = 650 mg, By Mouth, Every 4 hours, PRN as needed for fever, # 90 capsule, 0 Refills, Maintenance, 10/23/20 13:20:00 EDT, Capsule, [facility] #[id number], Partial fill upon patient request if the prescription is for a schedule II opioid... Start Date: 10/23/20 Status: Ordered ZyrTEC 10 mg oral tablet 1 tablet = 10 mg, By Mouth, Daily, # 30 tablet, 3 Refills, Maintenance, 10/23/20 13:21:00 EDT, Tablet, [facility] #[id number], 150, cm, 10/23/20 13:15:00 EDT, Height, 60.8, kg, 08/05/20 11:45:00EDT, Dry Weight Start Date: 10/23/20 Status: Ordered Problem List Condition Effective Dates Status Health Status Inform ant Back pain(Confirmed) Active Renal stones(Confirmed) Active Migraine(Confirmed) Active Social History Social History Type Response Smoking Status Never smoker entered on: 07/28/15 Sex Female
--- OUTSIDE RECORDS SUMMARY | 2022-09-09 10:43 | XMS_ITS | Continuity of Care Document ---
Author Name Unknown Organization [facility] Address [address] [address]- Care Team Providers Care Tool Design Draftsperson Name Role Phone Prior Wesly GRAYSON Primary Care Physician Encounter [facility] [place] Date(s): 06/04/19 - 06/14/19 [facility] [address] [place] [id number]- [facility] Attending Physician: Lnace Harris Admitting Physician: AdmLance barger Referring Physician: AdmtrLance Allergies, Adverse Reactions, Alerts Substance Reaction Severity [...]
--- OUTSIDE RECORDS SUMMARY | 2022-09-09 10:43 | XMS_ITS | Continuity of Care Document ---
Author Name Unknown Organization [facility] Address [address] [place] [address]- Care Team Providers Care Cow Washer Name Role Paper WinderFelix Denise MD Primary Care Physician Encounter [facility] Date(s): 04/28/21 - 05/28/[address] [address] Allergies, Adverse Reactions, [...] capsule, 3 Refills, Maintenance, 04/29/21 10:53:00 EST, [facility] #[id number], 1 capsule By Mouth Every 4 hours,PRN: NEEDED, 150, cm, 02/17/21 9:13:00 EST, Height, 60.2, kg, 11/18/20 16:2... Start Date: 04/29/21 Status: Ordered amitriptyline 25 mg oral tablet 50 mg, 2, tablet, By Mouth, Daily at bedtime, for 90 days, # 180 tablet, Refills 3, Tot. Refills 3,Hard Stop 10/18/21 13:21:00 EDT, 10/23/20 13:21:00 EDT, Route to Pharmacy Electronically, [facility] #[id number], 150, cm, 10/23/20 13:15:00 EDT,... Start Date: 10/23/20 Stop Date: 10/18/21 Status: Ordered cetirizine 10 mg oral tablet 1 tablet, By Mouth, Daily, as needed for itching/allergies, # 30 tablet, 11 Refills, 04/29/21 11:04:00 EST, [facility] #[id number], 150, cm, 02/17/21 9:13:00 EST, Height, 60.2, kg, 11/18/20 16:28:00 EDT, Dry Weight Start Date: 04/29/21 Status: Ordered fluticasone 50 mcg/inh nasal spray See Instructions, SHAKE LIQUID AND USE 1 SPRAY IN EACH NOSTRIL TWICE DAILY, # 16 Gm, 0 Refills, [facility] #[id number], 30, SHAKE LIQUID AND USE 1 SPRAY IN EACH NOSTRIL TWICE DAILY, 150, cm, 02/08/21 15:46:00 EDT, Height, 60.2, kg, 11/18/20 16:28... Start Date: 02/15/21 Status: Ordered lidocaine 5% topical film 1 patch, Topically, Daily, remove patches after 12 hours, # 30 patch, 0 Refills, Maintenance, 02/10/21 18:52:00 EDT, [facility] #[id number], Partial fill upon patient request if the prescriptionis for a schedule II opioid drug., 1 patch Topicall... Start Date: 02/10/21 Stop Date: 03/12/21 Status: Ordered lidocaine 5% topical film 1 patch, Topically, Daily, REMOVE AFTER 12 HOURS NEEDED FOR PAIN, # 13 patch, 0 Refills, [facility] #[id number], 13, APPLY 1 PATCH TOPICALLY TO AFFECTED AREA EVERY DAY. REMOVE AFTER 12 HOURS NEEDED FOR PAIN, 150, cm, 11/18/20 16:25:00 EDT,... Start Date: 02/06/21 Status: Ordered MiraLax oral powder for reconstitution = 17 Gm, By Mouth, Daily, dissolve in water before taking, # 255 Gm, 0 Refills, Maintenance, 10/23/20 13:22:00 EDT, REC Powder, [facility] #[id number], Partial fill upon patient request if the [...] 0 Refills, Maintenance, 04/29/21 10:54:00 EST, Tablet, [facility] #[id number], Partial fill upon patient request if the prescription i... Start Date: 04/29/21 Status: Ordered omeprazole 40 mg oral enteric coated capsule 1 capsule, By Mouth, Daily, as needed, # 30 capsule, 11 Refills, Maintenance, 04/29/21 11:03:00 EST, [facility] #[id number], 150, cm, 02/17/21 9:13:00 EST, Height, 60.2, kg, 11/18/20 16:28:00 EDT, Dry Weight Start Date: 04/29/21 Status: Ordered omeprazole 40 mg oral enteric coated capsule See Instructions, TAKE 1 CAPSULE BY MOUTH TWICE DAILY, # 180 capsule, 0 Refills, [facility] #[id number], 150, cm, 02/17/21 9:13:00 EST, Height, 60.2, kg, 11/18/20 16:28:00 EDT, Dry Weight Start Date: 03/29/21 Status: Ordered predniSONE 10 mg oral tablet See Instructions, For acute migraine. Take with food. Day 1 = 40mg. Day 2 = 30mg. Day 3 = 20mg Day 4 = 10mg, # 10 tablet, 0 Refills, Maintenance, 04/29/21 10:56:00 EST, [facility] #[id number], Partial fill upon patient request if the prescrip... Start Date: 04/29/21 Status: Ordered SUMAtriptan 25 mg oral tablet 1 tablet = 25 mg, By Mouth, Once, At onset of headache. May repeat in 2 hours. Take with naproxen, # 9 tablet, 2 Refills, Soft Stop, 04/29/21 10:53:00 EST, Tablet, [facility] #[id number], Partial fill upon patient request if the prescription is... Start Date: 04/29/21 Status: Ordered Tylenol 325 mg oral capsule 2 capsule = 650 mg, By Mouth, Every 4 hours, PRN as needed for fever, # 90 capsule, 0 Refills, Maintenance, 10/23/20 13:20:00 EDT, Capsule, [facility] #[id number], Partial fill upon patient request if the [...]
--- OUTSIDE RECORDS SUMMARY | 2022-09-09 10:43 | XMS_ITS | Continuity of Care Document ---
Author Name Unknown Organization [facility] Address [address] [place] [address]- Care Team Providers Care Installer Molding And Trim Name Role Phone Prior Wesly GRAYSON Primary Care Physician Encounter [facility] Date(s): 03/13/20 - 04/12/[address] [address]- Allergies, Adverse Reactions, Alerts Substance Reaction Severity Status NKA Active Immunizations Given and Recorded Vaccine Date Status Refusal Reason influenza virus vaccine, inactivated 04/28/16 Give n influenza virus vaccine, inactivated 02/18/15 Give n tetanus/diphtheria/pertussis, acel(Tdap) 07/16/15 Given Medications acetaminophen/butalbital/caffeine 300 mg-50 mg-40 mg oral capsule 1 capsule, By Mouth, Every 4 hours, PRN NEEDED, # 20 capsule, 0 Refills, Maintenance, 04/26/20 18:43:00 EST, [id number], 1 capsule By Mouth Every 4 hours,PRN: [...] Maintenance,03/22/20 17:53:00 EST, Route to Pharmacy Electronically, [facility] #[id number], 152.4, cm, 01/22/20 11:23:00 EDT, Height, 61.5, kg, 02/21/19 10:4... Start Date: 03/22/20 Stop Date: 03/17/21 Status: Ordered Vesuvius Saline Mist 0.65% nasal spray 2 sprays, Nares, Both, 4 times a day, # 45 mL, 0 Refills, Maintenance, 03/19/20 10:33:00 EST, [facility] #[id number], Partial fill upon patient request if the prescription is for a schedule II opioid drug., 2 sprays Nares, Both 4 times a day, 152... Start Date: 03/19/20 Status: Ordered cholecalciferol 2000 intl units oral capsule 1 capsule = 2,000 International_Units, By Mouth, Daily, # 90 capsule, 1 Refills, Maintenance, 01/28/20 7:32:00 EDT, Capsule, [facility] #[id number], 152.4, cm, 01/22/20 11:23:00 EDT, Height, 61.5, kg, 02/21/19 10:49:00 EST, Dry Weight Start Date: 01/28/20 Stop Date: 07/26/20 Status: Ordered dextromethorphan-guaifenesin 10 mg-200 mg/5 mL oral liquid 5 mL, By Mouth, Every 6 hours, PRN for cough, # 200 mL, 0 Refills, Maintenance, 03/19/20 10:35:00 EST, Liquid, [facility] #[id number], Partial fill upon patient request if the prescription is for a schedule II opioid drug., 5 mL By Mouth Every 6... Start Date: 03/19/20 Status: Ordered ibuprofen 200 mg oral tablet 400 mg, 2, tablet, By Mouth, Every 6 hours, # 100 tablet, Refills 0, Tot. Refills 0, Maintenance, 03/19/20 10:32:00 EST, Route to Pharmacy Electronically, [facility] #[id number], Partial fill upon patient request if the prescription is for a sche... Start Date: 03/19/20 Status: Ordered omeprazole 40 mg oral enteric coated capsule 1 capsule = 40 mg, By Mouth, 2 times a day, # 60 capsule, 2 Refills, Maintenance, 03/25/20 9:29:00 EST, CR Capsule, [facility] #[id number], 152.4, cm, 01/22/20 11:23:00 EDT, Height, 61.5, kg, 02/21/19 10:49:00 EST, Dry Weight Start Date: 03/25/20 Stop Date: 06/23/20 Status: Ordered ondansetron 4 mg oral tablet 1 tablet = 4 mg, By Mouth, Every 8 hours, # 90 tablet, 0 Refills, Maintenance, 03/30/20 9:51:00 EST, Tablet, [facility] #[id number], Partial fill upon patient request if the prescription is for a schedule II opioid drug., 152.4, cm, 01/22/20 11:2... Start Date: 03/30/20 Status: Ordered Tylenol 325 mg oral capsule 2 capsule = 650 mg, By Mouth, Every 4 hours, PRN as needed for fever, # 90 capsule, 0 Refills, Maintenance, 03/19/20 10:31:00 EST, Capsule, [facility] #[id number], Partial fill upon patient request if the prescription is for a schedule II opioid... Start Date: 03/19/20 Status: Ordered ZyrTEC 10 mg oral tablet 1 tablet = 10 mg, By Mouth, Daily, # 30 tablet, 3 Refills, Maintenance, 09/30/19 14:57:00 EDT, Tablet, [facility] #[id number], 152.4, cm, 04/09/19 11:38:00 EST, Height, 61.5, kg, 02/21/19 10:49:00 EST, Dry Weight Start Date: 09/30/19 Status: Ordered Problem List Condition Effective Dates Status Health Status Inform ant Back pain(Confirmed) Active COVID-19(Confirmed) Active Renal stones(Confirmed) Active Migraine(Confirmed) Active Social History Social History Type Response Smoking Status Never smoker entered on: 07/28/15 Sex Female
--- OUTSIDE RECORDS SUMMARY | 2022-09-09 10:43 | XMS_ITS | Continuity of Care Document ---
Author Name Unknown Organization [facility] Address [address] [place] [address]- Care Team Providers Care Players Assistant Name Role Sports Medicine TrainerFelix Denise MD Primary Care Physician [place] [facility] [place] [facility] [address] [place] [address] Attending Physician: Admtr, [id number] Admitting Physician: [id number] Referring Physician: Admtr, Ar8 Allergies, Adverse Reactions, [...] capsule, 3 Refills, Maintenance, 04/29/21 10:53:00 EST, [facility] #[id number], 1 capsule By Mouth Every 4 hours,PRN: NEEDED, 150, cm, 02/17/21 9:13:00 EST, Height, 60.2, kg, 11/18/20 16:2... Start Date: 04/29/21 Status: Ordered amitriptyline 50 mg oral tablet 2 tablet = 100 mg, By Mouth, Daily at supper, NEEDS NEURO FOLLOW UP, # 60 tablet, 0 Refills, Maintenance, 04/07/22 18:34:00 EST, Tablet, [facility] #[id number], Partial fill upon patient requestif the prescription is for a schedule II opioid cherry... Start Date: 04/07/22 Status: Ordered Blood Pressure Monitor See Instructions, # 1 each, Maintenance, to check blood pressure daily for medication titration Dx:essential hypertension ICD10: I10 duration: 52 weeks, 10/27/21 11:33:00 EDT, Supply Start Date: 10/27/21 Status: Ordered cetirizine 10 mg oral tablet 1 tablet, By Mouth, Daily, as needed for itching/allergies, # 30 tablet, 11 Refills, 04/29/21 11:04:00 EST, [facility] #[id number], 150, cm, 02/17/21 9:13:00 EST, Height, 60.2, kg, 11/18/20 16:28:00 EDT, Dry Weight Start Date: 04/29/21 Status: Ordered drospirenone-ethinyl estradiol 3 mg-0.02 mg oral tablet 1 tablet, By Mouth, Daily, Maintenance Start Date: 08/18/21 Status: Ordered fluticasone 50 mcg/inh nasal spray See Instructions, SHAKE LIQUID AND USE 1 SPRAY IN EACH NOSTRIL TWICE DAILY, # 16 Gm, 0 Refills, [facility] #[id number], 30, SHAKE LIQUID AND USE 1 SPRAY IN EACH NOSTRIL TWICE DAILY, 150, cm, 02/08/21 15:46:00 EDT, Height, 60.2, kg, 11/18/20 16:28... Start Date: 02/15/21 Status: Ordered hydroCHLOROthiazide 12.5 mg oral capsule 1 capsule = 12.5 mg, By Mouth, Daily, # 30 capsule, 2 Refills, Maintenance, 01/19/22 17:34:00 EDT, Capsule, [facility] #[id number], 150, cm, 11/23/21 13:20:00 EDT, Height, 60.2, kg, 11/18/20 16:28:00 EDT, Dry Weight Start Date: 01/19/22 Status: Ordered lidocaine 5% topical film 1 patch, Topically, Daily, remove patches after 12 hours, # 30 patch, 0 Refills, Maintenance, 02/10/21 18:52:00 EDT, [facility] #[id number], Partial fill upon patient request if the prescriptionis for a schedule II opioid drug., 1 patch Topicall... Start Date: 02/10/21 Stop Date: 03/12/21 Status: Ordered lidocaine 5% topical film 1 patch, Topically, Daily, REMOVE AFTER 12 HOURS NEEDED FOR PAIN, # 13 patch, 0 Refills, [facility] #[id number], 13, APPLY 1 PATCH TOPICALLY TO AFFECTED AREA EVERY DAY. REMOVE AFTER 12 HOURS NEEDED FOR PAIN, 150, cm, 11/18/20 16:25:00 EDT,... Start Date: 02/06/21 Status: Ordered MiraLax oral powder for reconstitution = 17 Gm, By Mouth, Daily, dissolve in water before taking, # 255 Gm, 0 Refills, Maintenance, 10/23/20 13:22:00 EDT, REC Powder, [facility] #[id number], Partial fill upon patient request if the [...] a day, # 60 tablet, 0 Refills, Maintenance, 04/12/22 8:20:00 EST, [facility] #[id number], 150, cm, 11/23/21 13:20:00 EDT, Height, 60.2, kg, 11/18/20 16:28:00 EDT, DryWeight Start Date: 04/12/22 Status: Ordered omeprazole 40 mg oral enteric coated capsule 1 capsule, By Mouth, Daily, as needed, # 30 capsule, 11 Refills, Maintenance, 04/29/21 11:03:00 EST, [facility] #[id number], 150, cm, 02/17/21 9:13:00 EST, Height, 60.2, kg, 11/18/20 16:28:00 EDT, Dry Weight Start Date: 04/29/21 Status: Ordered omeprazole 40 mg oral enteric coated capsule See Instructions, TAKE 1 CAPSULE BY MOUTH TWICE DAILY, # 180 capsule, 0 Refills, [facility] #[id number], 150, cm, 02/17/21 9:13:00 EST, Height, 60.2, kg, 11/18/20 16:28:00 EDT, Dry Weight Start Date: 03/29/21 Status: Ordered predniSONE 10 mg oral tablet See Instructions, For acute migraine. Take with food. Day 1 = 40mg. Day 2 = 30mg. Day 3 = 20mg Day 4 = 10mg, # 10 tablet, 0 Refills, Maintenance, 04/29/21 10:56:00 EST, [facility] #[id number], Partial fill upon patient request if the prescrip... Start Date: 04/29/21 Status: Ordered SUMAtriptan 25 mg oral tablet 1 tablet = 25 mg, By Mouth, Once, At onset of headache. May repeat in 2 hours. Take with naproxen, # 9 tablet, 2 Refills, Soft Stop, 04/29/21 10:53:00 EST, Tablet, [facility] #[id number], Partial fill upon patient request if the prescription is... Start Date: 04/29/21 Status: Ordered SUMAtriptan 50 mg oral tablet 1 tablet = 50 mg, By Mouth, Daily, PRN for migraine headache, may repeat dose after 2 hours up to amax 2 tabs / 24hrs ,no more than 3 doses/week, # 9 tablet, 2 Refills, Acute 08/16/22 11:35:00 EDT, 08/16/21 11:35:00 EDT, Tablet, [facility] Start Date: 08/16/21 Stop Date: 08/16/22 Status: Ordered Tylenol 325 mg oral capsule 2 capsule = 650 mg, By Mouth, Every 4 hours, PRN as needed for fever, # 90 capsule, 0 Refills, Maintenance, 10/23/20 13:20:00 EDT, Capsule, [facility] #[id number], Partial fill upon patient request if the prescription is for a schedule II opioid... Start Date: 10/23/20 Status: Ordered Problem List Condition Confirmation Course Effective Dates Status Health St atus Informant Back pain Confirmed Active Blood pressure elevated without history of HTN Confirmed Active Headache Confirmed Active Renal stones Confirmed Active Migraine Confirmed Active Refractory migraine with aura Confirmed Active Social History Social History Type Response Smoking Status Never smoker entered on: 07/28/15 Sex Patient Care team information Care Team Personnel Name: Banker GARCIA, Felix Lama Position: [facility] Primary Care Physician Member Role: PCP Address: Address: [address] [place] [address]- Name: Lexie Fernandez RN Position: [facility] RN Member Role: Primary Care Nurse Name: Jennifer Fink RN Position: [facility] RN Member Role: Primary Care Nurse Name: Bindu Drake RN Position: [facility] RN Member Role: Primary Care Nurse Name: Thomas Guerrero MD Position: [facility] MEDICARE CONTACT SPECIALIST MD Member Role: [employer] MEDICARE CONTACT SPECIALIST Physician Address: Address: [address] [place] [address] [facility], [place] [address]- Care Team Related Persons Name: CLARITZA MENDOZA Address: [address] [place] [address] Name: IRENE LI Address: [address] [address]
--- OUTSIDE RECORDS SUMMARY | 2022-09-09 10:43 | XMS_ITS | Continuity of Care Document ---
Author Name Unknown Organization [facility] Address [address] [place] [address]- Care Team Providers Care Signal Operator Name Role Real Estate Loan ProcessorFelix Denise MD Primary Care Physician Encounter [facility] Date(s): 10/07/20 - 11/06/[address] [address] Allergies, Adverse Reactions, Alerts Substance [...] capsule, 0 Refills, Maintenance, 09/23/20 15:01:00 EDT, [facility] #[id number], 1 capsule By Mouth Every 4 hours,PRN: NEEDED, 150, cm, 09/23/20 13:41:00 EDT, Height, 60.8, kg, 08/05/20 11:... Start Date: 09/23/20 Status: Ordered amitriptyline 25 mg oral tablet 50 mg, 2, tablet, By Mouth, Daily at bedtime, # 180 tablet, Refills 3, Tot. Refills 3, Maintenance,10/23/20 13:21:00 EDT, Route to Pharmacy Electronically, [facility] #[id number], 150, cm, 10/23/20 13:15:00 EDT, Height, 60.8, kg, 08/05/20 11:45:... Start Date: 10/23/20 Stop Date: 10/18/21 Status: Ordered cholecalciferol 2000 intl units oral capsule 1 capsule = 2,000 International_Units, By Mouth, Daily, # 90 capsule, 1 Refills, Maintenance, 01/28/20 7:32:00 EDT, Capsule, [facility] #[id number], 152.4, cm, 01/22/20 11:23:00 EDT, Height, 61.5, kg, 02/21/19 10:49:00 EST, Dry Weight Start Date: 01/28/20 Stop Date: 07/26/20 Status: Ordered Flonase 50 mcg/inh nasal spray 1 sprays, Nares, Both, 2 times a day, # 16 Gm, 2 Refills, Maintenance, 10/23/20 13:21:00 EDT, [place], [facility] #[id number], Partial fill upon patient request if the prescription is for a schedule II opioid drug., 1 sprays Nares, Both 2 times a d... Start Date: 10/23/20 Status: Ordered MiraLax oral powder for reconstitution = 17 Gm, By Mouth, Daily, dissolve in water before taking, # 255 Gm, 0 Refills, Maintenance, 10/23/20 13:22:00 EDT, REC Powder, [facility] #[id number], Partial fill upon patient request if the prescription is for a schedule II opioid drug., 17 Gm... Start Date: 10/23/20 Status: Ordered naproxen 500 mg oral delayed release tablet 1 tablet = 500 mg, By Mouth, 2 times a day, # 60 tablet, 2 Refills, Maintenance, 10/23/20 13:21:00 EDT, EC Tablet, [facility] #[id number], Partial fill upon patient request if the prescription is for a schedule II opioid drug., 150, cm, 10/23/20... Start Date: 10/23/20 Status: Ordered omeprazole 40 mg oral enteric coated capsule 1 capsule, By Mouth, 2 times a day, # 60 capsule, 1 Refills, Maintenance, 10/23/20 13:22:00 EDT, [facility] #[id number], 150, cm, 10/23/20 13:15:00 EDT, Height, 60.8, kg, 08/05/20 11:45:00 EDT, Dry Weight Start Date: 10/23/20 Status: Ordered propranolol 60 mg oral capsule, extended release 60 mg, 1, capsule, By Mouth, Daily, # 30 capsule, Refills 1, Tot. Refills 1, Maintenance, 10/23/20 13:54:00 EDT, Route to Pharmacy Electronically, [facility] #[id number], Partial fill upon patient request if the prescription is for a schedule II... Start Date: 10/23/20 Status: Ordered propranolol 60 mg oral capsule, extended release See Instructions, TAKE 1 CAPSULE BY MOUTH DAILY, # 90 capsule, Refills 0, Maintenance, InstructionsReplace Required Details, Route to Pharmacy Electronically, [facility] #[id number], 150, cm, 10/23/20 13:44:00 EDT, Height, 60.8, kg, 08/05/20 11:... Start Date: 10/23/20 Status: Ordered SUMAtriptan 25 mg oral tablet 1 tablet = 25 mg, By Mouth, Once, At onset of headache. May repeat in 2 hours, # 18 tablet, 0 Refills, Soft Stop, 10/23/20 13:55:00 EDT, Tablet, [facility] #[id number], Partial fill upon patientrequest if the prescription is for a schedule II op... Start Date: 10/23/20 Status: Ordered Tylenol 325 mg oral capsule 2 capsule = 650 mg, By Mouth, Every 4 hours, PRN as needed for fever, # 90 capsule, 0 Refills, Maintenance, 10/23/20 13:20:00 EDT, Capsule, [facility] #[id number], Partial fill upon patient request if the prescription is for a schedule II opioid... Start Date: 10/23/20 Status: Ordered ZyrTEC 10 mg oral tablet 1 tablet = 10 mg, By Mouth, Daily, # 30 tablet, 3 Refills, Maintenance, 10/23/20 13:21:00 EDT, Tablet, [facility] #[id number], 150, cm, 10/23/20 13:15:00 EDT, Height, 60.8, kg, 08/05/20 11:45:00EDT, Dry Weight Start Date: 10/23/20 Status: Ordered Problem List Condition Effective Dates Status Health Status Inform ant Back pain(Confirmed) Active Renal stones(Confirmed) Active Migraine(Confirmed) Active Social History Social History Type Response Smoking Status Never smoker entered on: 07/28/15 Sex Female
--- OUTSIDE RECORDS SUMMARY | 2022-09-09 10:43 | XMS_ITS | Continuity of Care Document ---
Author Name Unknown Organization [facility] Address [address] [place] [address]- Care Team Providers Care Fur Coat Sewer Name Role Legal Instruments ExaminerFelix Denise MD Primary Care Physician Encounter [facility] Date(s): 01/19/22 - 02/18/[address] [address]- Allergies, Adverse Reactions, Alerts Substance Reaction Severity [...] capsule, 3 Refills, Maintenance, 04/29/21 10:53:00 EST, [facility] #[id number], 1 capsule By Mouth Every 4 hours,PRN: NEEDED, 150, cm, 02/17/21 9:13:00 EST, Height, 60.2, kg, 11/18/20 16:2... Start Date: 04/29/21 Status: Ordered amitriptyline 50 mg oral tablet 2 tablet = 100 mg, By Mouth, Daily at supper, dose increase, # 60 tablet, 5 Refills, Maintenance, 08/16/21 11:32:00 EDT, Tablet, [facility] #[id number], Partial fill upon patient request if the [...] 30 tablet, 11 Refills, 04/29/21 11:04:00 EST, [facility] #[id number], 150, cm, 02/17/21 9:13:00 EST, Height, 60.2, kg, 11/18/20 16:28:00 EDT, Dry Weight Start Date: 04/29/21 Status: Ordered drospirenone-ethinyl estradiol 3 mg-0.02 mg oral tablet 1 tablet, By Mouth, Daily, Maintenance Start Date: 08/18/21 Status: Ordered fluticasone 50 mcg/inh nasal spray See Instructions, SHAKE LIQUID AND USE 1 SPRAY IN EACH NOSTRIL TWICE DAILY, # 16 Gm, 0 Refills, [facility] #[id number], 30, SHAKE LIQUID AND USE 1 SPRAY IN EACH NOSTRIL TWICE DAILY, 150, cm, 02/08/21 15:46:00 EDT, Height, 60.2, kg, 11/18/20 16:28... Start Date: 02/15/21 Status: Ordered hydroCHLOROthiazide 12.5 mg oral capsule 1 capsule = 12.5 mg, By Mouth, Daily, # 30 capsule, 2 Refills, Maintenance, 01/19/22 17:34:00 EDT, Capsule, [facility] #[id number], 150, cm, 11/23/21 13:20:00 EDT, Height, 60.2, kg, 11/18/20 16:28:00 EDT, Dry Weight Start Date: 01/19/22 Status: Ordered lidocaine 5% topical film 1 patch, Topically, Daily, remove patches after 12 hours, # 30 patch, 0 Refills, Maintenance, 02/10/21 18:52:00 EDT, [facility] #[id number], Partial fill upon patient request if the prescriptionis for a schedule II opioid drug., 1 patch Topicall... Start Date: 02/10/21 Stop Date: 03/12/21 Status: Ordered lidocaine 5% topical film 1 patch, Topically, Daily, REMOVE AFTER 12 HOURS NEEDED FOR PAIN, # 13 patch, 0 Refills, [facility] #[id number], 13, APPLY 1 PATCH TOPICALLY TO AFFECTED AREA EVERY DAY. REMOVE AFTER 12 HOURS NEEDED FOR PAIN, 150, cm, 11/18/20 16:25:00 EDT,... Start Date: 02/06/21 Status: Ordered MiraLax oral powder for reconstitution = 17 Gm, By Mouth, Daily, dissolve in water before taking, # 255 Gm, 0 Refills, Maintenance, 10/23/20 13:22:00 EDT, REC Powder, [facility] #[id number], Partial fill upon patient request if the [...] a day, # 60 tablet, 0 Refills, [facility] #[id number], 150, cm, 08/18/21 16:48:00 EDT, Height, 60.2, kg, 11/18/20 16:28:00 EDT, Dry Weight Start Date: 10/14/21 Status: Ordered omeprazole 40 mg oral enteric coated capsule 1 capsule, By Mouth, Daily, as needed, # 30 capsule, 11 Refills, Maintenance, 04/29/21 11:03:00 EST, [facility] #[id number], 150, cm, 02/17/21 9:13:00 EST, Height, 60.2, kg, 11/18/20 16:28:00 EDT, Dry Weight Start Date: 04/29/21 Status: Ordered omeprazole 40 mg oral enteric coated capsule See Instructions, TAKE 1 CAPSULE BY MOUTH TWICE DAILY, # 180 capsule, 0 Refills, [facility] #[id number], 150, cm, 02/17/21 9:13:00 EST, Height, 60.2, kg, 11/18/20 16:28:00 EDT, Dry Weight Start Date: 03/29/21 Status: Ordered predniSONE 10 mg oral tablet See Instructions, For acute migraine. Take with food. Day 1 = 40mg. Day 2 = 30mg. Day 3 = 20mg Day 4 = 10mg, # 10 tablet, 0 Refills, Maintenance, 04/29/21 10:56:00 EST, [facility] #[id number], Partial fill upon patient request if the prescrip... Start Date: 04/29/21 Status: Ordered SUMAtriptan 25 mg oral tablet 1 tablet = 25 mg, By Mouth, Once, At onset of headache. May repeat in 2 hours. Take with naproxen, # 9 tablet, 2 Refills, Soft Stop, 04/29/21 10:53:00 EST, Tablet, [facility] #[id number], Partial fill upon patient request if the prescription is... Start Date: 04/29/21 Status: Ordered SUMAtriptan 50 mg oral tablet 1 tablet = 50 mg, By Mouth, Daily, PRN for migraine headache, may repeat dose after 2 hours up to amax 2 tabs / 24hrs ,no more than 3 doses/week, # 9 tablet, 2 Refills, Acute 08/16/22 11:35:00 EDT, 08/16/21 11:35:00 EDT, Tablet, [facility]... Start Date: 08/16/21 Stop Date: 08/16/22 Status: Ordered Tylenol 325 mg oral capsule 2 capsule = 650 mg, By Mouth, Every 4 hours, PRN as needed for fever, # 90 capsule, 0 Refills, Maintenance, 10/23/20 13:20:00 EDT, Capsule, [facility] #[id number], Partial fill upon patient request if the [...] Care Physician Member Role: PCP Address: Address: [address] [place] [address]- Name: Lexie Feranndez RN Position: [facility] RN Member Role: Primary Care Nurse Name: Jennifer Fink RN Position: [facility] RN Member Role: Primary Care Nurse Name: Bindu Drake RN Position: [facility] RN Member Role: Primary Care Nurse Name: Thomas Guerrero MD Position: [facility] CIGARETTE EXAMINER MD Member Role: [employer] CIGARETTE EXAMINER Physician Address: Address: [address] [place] [address] [facility], [place] [address]- Care Team Related Persons Name: CLARITZA MENDOZA Address: home [address] [place] [address] Name: IRENE LI Address: [address] [address]
--- OUTSIDE RECORDS SUMMARY | 2022-09-09 10:43 | XMS_ITS | Continuity of Care Document ---
Author Name Unknown Organization [facility] Address [address] [place] [address]- Care Team Providers Care Mower Mechanic Name Role Phone Prior Wesly GRAYSON Primary Care Physician Encounter [facility] [place] Date(s): 05/06/19 - 05/16/[address] [address]- [facility] Attending Physician: Lance Harris Admitting Physician: AdmtrLance Referring Physician: Admtr, Ar8 Allergies, Adverse Reactions, [...]
--- OUTSIDE RECORDS SUMMARY | 2022-09-09 10:43 | XMS_ITS | Continuity of Care Document ---
Author Name Unknown Organization [facility] Address [address] [place] [address]- Care Team Providers Care Expander Machine Operator Name Role Phone Prior Wesly GRAYSON Primary Care Physician [phone] Encounter [facility] Date(s): 03/26/20 - 04/25/[address] [address]- Allergies, Adverse Reactions, Alerts Substance Reaction Severity Status NKA Active Immunizations Given and Recorded Vaccine Date Status Refusal Reason influenza virus vaccine, inactivated 04/28/16 Give n influenza virus vaccine, inactivated 02/18/15 Give n tetanus/diphtheria/pertussis, acel(Tdap) 07/16/15 Given Medications acetaminophen/butalbital/caffeine 300 mg-50 mg-40 mg oral capsule 1 capsule, By Mouth, Every 4 hours, PRN NEEDED, # 20 capsule, 0 Refills, Maintenance, 04/26/20 18:43:00 EST, [id number], 1 capsule By Mouth Every 4 hours,PRN: [...] Maintenance,03/22/20 17:53:00 EST, Route to Pharmacy Electronically, [facility] #[id number], 152.4, cm, 01/22/20 11:23:00 EDT, Height, 61.5, kg, 02/21/19 10:4... Start Date: 03/22/20 Stop Date: 03/17/21 Status: Ordered [place] Saline Mist 0.65% nasal spray 2 sprays, Nares, Both, 4 times a day, # 45 mL, 0 Refills, Maintenance, 03/19/20 10:33:00 EST, [facility] #[id number], Partial fill upon patient request if the prescription is for a schedule II opioid drug., 2 sprays Nares, Both 4 times a day, 152... Start Date: 03/19/20 Status: Ordered cholecalciferol 2000 intl units oral capsule 1 capsule = 2,000 International_Units, By Mouth, Daily, # 90 capsule, 1 Refills, Maintenance, 01/28/20 7:32:00 EDT, Capsule, [facility] #[id number], 152.4, cm, 01/22/20 11:23:00 EDT, Height, 61.5, kg, 02/21/19 10:49:00 EST, Dry Weight Start Date: 01/28/20 Stop Date: 07/26/20 Status: Ordered dextromethorphan-guaifenesin 10 mg-200 mg/5 mL oral liquid 5 mL, By Mouth, Every 6 hours, PRN for cough, # 200 mL, 0 Refills, Maintenance, 03/19/20 10:35:00 EST, Liquid, [facility] #[id number], Partial fill upon patient request if the prescription is for a schedule II opioid drug., 5 mL By Mouth Every 6... Start Date: 03/19/20 Status: Ordered ibuprofen 200 mg oral tablet 400 mg, 2, tablet, By Mouth, Every 6 hours, # 100 tablet, Refills 0, Tot. Refills 0, Maintenance, 03/19/20 10:32:00 EST, Route to Pharmacy Electronically, [facility] #[id number], Partial fill upon patient request if the prescription is for a sche... Start Date: 03/19/20 Status: Ordered omeprazole 40 mg oral enteric coated capsule 1 capsule = 40 mg, By Mouth, 2 times a day, # 60 capsule, 2 Refills, Maintenance, 03/25/20 9:29:00 EST, CR Capsule, [facility] #[id number], 152.4, cm, 01/22/20 11:23:00 EDT, Height, 61.5, kg, 02/21/19 10:49:00 EST, Dry Weight Start Date: 03/25/20 Stop Date: 06/23/20 Status: Ordered ondansetron 4 mg oral tablet 1 tablet = 4 mg, By Mouth, Every 8 hours, # 90 tablet, 0 Refills, Maintenance, 03/30/20 9:51:00 EST, Tablet, [facility] #[id number], Partial fill upon patient request if the prescription is for a schedule II opioid drug., 152.4, cm, 01/22/20 11:2... Start Date: 03/30/20 Status: Ordered Tylenol 325 mg oral capsule 2 capsule = 650 mg, By Mouth, Every 4 hours, PRN as needed for fever, # 90 capsule, 0 Refills, Maintenance, 03/19/20 10:31:00 EST, Capsule, [facility] #[id number], Partial fill upon patient request if the prescription is for a schedule II opioid... Start Date: 03/19/20 Status: Ordered ZyrTEC 10 mg oral tablet 1 tablet = 10 mg, By Mouth, Daily, # 30 tablet, 3 Refills, Maintenance, 09/30/19 14:57:00 EDT, Tablet, [facility] #[id number], 152.4, cm, 04/09/19 11:38:00 EST, Height, 61.5, kg, 02/21/19 10:49:00 EST, Dry Weight Start Date: 09/30/19 Status: Ordered Problem List Condition Effective Dates Status Health Status Inform ant Back pain(Confirmed) Active Renal stones(Confirmed) Active Migraine(Confirmed) Active Social History Social History Type Response Smoking Status Never smoker entered on: 07/28/15 Sex Female
--- OUTSIDE RECORDS SUMMARY | 2022-09-09 10:43 | XMS_ITS | Continuity of Care Document ---
Author Name Unknown Organization [facility] Address [address] [place] [address]- Care Team Providers Care Real Property Evaluator Name Role Phone Prior Wesly GRAYSON Primary Care Physician [place] [facility] [place] 01/22/[address] [address] Allergies, Adverse Reactions, Alerts Substance Reaction [...] 12/23/19 17:53:00 EDT, Route to Pharmacy Electronically, [facility] #[id number], 152.4, cm, 10/08/19 15:59:00 EDT... Start Date: 12/23/19 Stop Date: 03/22/20 Status: Ordered amitriptyline 25 mg oral tablet 50 mg, 2, tablet, By Mouth, Daily at bedtime, # 180 tablet, Refills 3, Tot. Refills 3, Maintenance,03/22/20 17:53:00 EST, Route to Pharmacy Electronically, [facility] #[id number], 152.4, cm, 01/22/20 11:23:00 EDT, Height, 61.5, kg, 02/21/19 10:4... Start Date: 03/22/20 Stop Date: 03/17/21 Status: Ordered cholecalciferol 1000 intl units oral tablet 1 tablet = 1,000 International_Units, By Mouth, Daily, # 30 tablet, 2 Refills, Maintenance, 10/03/19 13:04:00 EDT, [facility] #[id number], 152.4, cm, 04/09/19 11:38:00 EST, Height, 61.5, [...] 1 Refills, Maintenance, 01/22/20 11:50:00EDT, CR Capsule, [facility] #[id number], 152.4, cm, 01/22/20 11:23:00 EDT, Height, 61.5, kg, 02/21/19 10:49:00 EST, Dry Weight Start Date: 01/22/20 Stop Date: 03/22/20 Status: Ordered ondansetron 4 mg oral tablet, disintegrating 1 tablet = 4 mg, By Mouth, Every 8 hours, PRN Nausea & Vomiting, # 6 tablet, 0 Refills, Maintenance, 08/08/19 15:59:00 EDT, Tablet, [facility] #[id number], 152.4, cm, 04/09/19 11:38:00 EST, Height, 61.5, [...] 03/22/20 11:51:00 EST, 01/22/20 11:51:00 EDT, Tablet, [facility] #[id number], 152.4, cm,01/22/20 11:23:00 EDT, Height, 61.5, kg, 02/21/19 1... Start Date: 01/22/20 Stop Date: 03/22/20 Status: Ordered ZyrTEC 10 mg oral tablet 1 tablet = 10 mg, By Mouth, Daily, # 30 tablet, 3 Refills, Maintenance, 09/30/19 14:57:00 EDT, Tablet, [facility] #45847, 152.4, cm, 04/09/19 11:38:00 EST, Height, 61.5, kg, 02/21/19 10:49:00 EST, Dry Weight Start Date: 09/30/19 Status: Ordered Problem List Condition Effective Dates Status Health Status Inform ant Back pain(Confirmed) Active Renal stones(Confirmed) Active Migraine(Confirmed) Active Social History Social History Type Response Smoking Status Never smoker entered on: 07/28/15 Sex Female
--- OUTSIDE RECORDS SUMMARY | 2022-09-09 10:43 | XMS_ITS | Continuity of Care Document ---
Author Name Unknown Organization [facility] Address [address] [address]- Care Team Providers Care Cell Maker Name Role Phone Prior Wesly GRAYSON Primary Care Physician Encounter [facility] [place](s): 04/09/19 - 07/04/19 [facility] [address] [address]- [facility] Attending Physician: Salma Milan CNM Admitting Physician: Salma Milan CNM Referring Physician: Salma Milan CNM Allergies, Adverse Reactions, Alerts Substance Reaction Severity [...]
--- OUTSIDE RECORDS SUMMARY | 2022-09-09 10:43 | XMS_ITS | Continuity of Care Document ---
Author Name Unknown Organization [facility] Address [address] [place] [address]- Care Team Providers Care Manager Project Name Role Phone Prior Wesly GRAYSON Primary Care Physician [phone] Encounter [facility] [place] Date(s): 04/02/19 - 04/12/[address] [address] [facility] Attending Physician: Lance Harris Admitting Physician: AdmLance barger Referring Physician: Admtr, Colin8 Allergies, Adverse Reactions, Alerts Substance Reaction Severity [...]
--- OUTSIDE RECORDS SUMMARY | 2022-09-09 10:43 | XMS_ITS | Continuity of Care Document ---
Author Name Unknown Organization [facility] Address [address] [place] [address]- Care Team Providers Care Rod Puller And Coiler Name Role Shipping Receiving ManagerFelix Denise MD Primary Care Physician Encounter [facility] Date(s): 02/10/21 - 03/12/[address] [address] Allergies, Adverse Reactions, Alerts Substance Reaction Severity [...] capsule, 1 Refills, Maintenance, 02/17/21 9:46:00 EST, [facility] #[id number], 1 capsule By Mouth Every 4 hours,PRN: NEEDED, 150, cm, 02/17/21 9:13:00 EST, Height, 60.2, kg, 11/18/20 16:28... Start Date: 02/17/21 Status: Ordered amitriptyline 25 mg oral tablet 50 mg, 2, tablet, By Mouth, Daily at bedtime, # 180 tablet, Refills 3, Tot. Refills 3, Maintenance,10/18/21 13:21:00 EDT, Route to Pharmacy Electronically, [facility] #[id number], 150, cm, 02/17/21 9:13:00 EST, Height, 60.2, kg, 11/18/20 16:28:0... Start Date: 10/18/21 Stop Date: 10/13/22 Status: Ordered amitriptyline 25 mg oral tablet 50 mg, 2, tablet, By Mouth, Daily at bedtime, for 90 days, # 180 tablet, Refills 3, Tot. Refills 3,Hard Stop 10/18/21 13:21:00 EDT, 10/23/20 13:21:00 EDT, Route to Pharmacy Electronically, [facility] #[id number], 150, cm, 10/23/20 13:15:00 EDT,... Start Date: 10/23/20 Stop Date: 10/18/21 Status: Ordered cetirizine 10 mg oral tablet 1 tablet, By Mouth, Daily, # 30 tablet, 0 Refills, [facility] #[id number], 150, cm, 02/08/21 15:46:00 EDT, Height, 60.2, kg, 11/18/20 16:28:00 EDT, Dry Weight Start Date: 02/15/21 Status: Ordered cholecalciferol 2000 intl units oral capsule 1 capsule = 2,000 International_Units, By Mouth, Daily, # 90 capsule, 1 Refills, Maintenance, 01/28/20 7:32:00 EDT, Capsule, [facility] #[id number], 152.4, cm, 01/22/20 11:23:00 EDT, Height, 61.5, kg, 02/21/19 10:49:00 EST, Dry Weight Start Date: 01/28/20 Stop Date: 07/26/20 Status: Ordered cyclobenzaprine 5 mg oral tablet See Instructions, 1-2 tablet By Mouth 3 times a day prn muscle spasms, # 30 capsule, 0 Refills, Acute 03/19/21 9:42:00 EST, 02/17/21 9:41:00 EST, [facility] #[id number], Partial fill upon patient request if the prescription is for a schedule II o... Start Date: 02/17/21 Stop Date: 03/19/21 Status: Ordered diclofenac sodium 25 mg oral delayed release tablet 1 tablet = 25 mg, By Mouth, 3 times a day, PRN Pain, # 90 tablet, 0 Refills, Maintenance, 02/08/21 16:40:00 EDT, EC Tablet, [facility] #[id number], Partial fill upon patient request if the prescription is for a schedule II opioid drug., 150, cm,... Start Date: 02/08/21 Status: Ordered fluticasone 50 mcg/inh nasal spray See Instructions, SHAKE LIQUID AND USE 1 SPRAY IN EACH NOSTRIL TWICE DAILY, # 16 Gm, 0 Refills, [facility] #[id number], 30, SHAKE LIQUID AND USE 1 SPRAY IN EACH NOSTRIL TWICE DAILY, 150, cm, 02/08/21 15:46:00 EDT, Height, 60.2, kg, 11/18/20 16:28... Start Date: 02/15/21 Status: Ordered lidocaine 5% topical film 1 patch, Topically, Daily, remove patches after 12 hours, # 30 patch, 0 Refills, Maintenance, 02/10/21 18:52:00 EDT, [facility] #[id number], Partial fill upon patient request if the prescriptionis for a schedule II opioid drug., 1 patch Topicall... Start Date: 02/10/21 Stop Date: 03/12/21 Status: Ordered lidocaine 5% topical film 1 patch, Topically, Daily, REMOVE AFTER 12 HOURS NEEDED FOR PAIN, # 13 patch, 0 Refills, [facility] #[id number], 13, APPLY 1 PATCH TOPICALLY TO AFFECTED AREA EVERY DAY. REMOVE AFTER 12 HOURS NEEDED FOR PAIN, 150, cm, 11/18/20 16:25:00 EDT,... Start Date: 02/06/21 Status: Ordered MiraLax oral powder for reconstitution = 17 Gm, By Mouth, Daily, dissolve in water before taking, # 255 Gm, 0 Refills, Maintenance, 10/23/20 13:22:00 EDT, REC Powder, [facility] #[id number], Partial fill upon patient request if the prescription is for a schedule II opioid drug., 17 Gm... Start Date: 10/23/20 Status: Ordered omeprazole 40 mg oral enteric coated capsule 1 capsule, By Mouth, 2 times a day, # 60 capsule, 1 Refills, Maintenance, 10/23/20 13:22:00 EDT, [facility] #[id number], 150, cm, 10/23/20 13:15:00 EDT, Height, 60.8, kg, 08/05/20 11:45:00 EDT, Dry Weight Start Date: 10/23/20 Status: Ordered SUMAtriptan 25 mg oral tablet 1 tablet = 25 mg, By Mouth, Once, At onset of headache. May repeat in 2 hours, # 1 tablet, 2 Refills, Soft Stop, 02/17/21 9:46:00 EST, Tablet, [facility] #[id number], Partial fill upon patient request if the prescription is for a schedule II opio... Start Date: 02/17/21 Status: Ordered Tylenol 325 mg oral capsule 2 capsule = 650 mg, By Mouth, Every 4 hours, PRN as needed for fever, # 90 capsule, 0 Refills, Maintenance, 10/23/20 13:20:00 EDT, Capsule, [facility] #[id number], Partial fill upon patient request if the prescription is for a schedule II opioid... Start Date: 10/23/20 Status: Ordered Problem List Condition Effective Dates Status Health Status Inform ant Back pain(Confirmed) Active Renal stones(Confirmed) Active Migraine(Confirmed) Active Social History Social History Type Response Smoking Status Never smoker entered on: 07/28/15 Sex
--- OUTSIDE RECORDS SUMMARY | 2022-09-09 10:43 | XMS_ITS | Continuity of Care Document ---
Author Name Unknown Organization [facility] Address [address] [place] [address]- Care Team Providers Care Brick Pitcher Name Role Phone Prior Wesly GRAYSON Primary Care Physician Encounter [facility] Date(s): 03/17/20 - 04/16/[address] [address]- Allergies, Adverse Reactions, Alerts Substance Reaction Severity Status NKA Active Immunizations Given and Recorded Vaccine Date Status Refusal Reason influenza virus vaccine, inactivated 04/28/16 Give n influenza virus vaccine, inactivated 02/18/15 Give n tetanus/diphtheria/pertussis, acel(Tdap) 07/16/15 Given Medications acetaminophen/butalbital/caffeine 300 mg-50 mg-40 mg oral capsule 1 capsule, By Mouth, Every 4 hours, PRN NEEDED, # 20 capsule, 0 Refills, Maintenance, 04/26/20 18:43:00 EST, [id number], 1 capsule By Mouth Every 4 hours,PRN: [...] Maintenance,03/22/20 17:53:00 EST, Route to Pharmacy Electronically, [facility] #[id number], 152.4, cm, 01/22/20 11:23:00 EDT, Height, 61.5, kg, 02/21/19 10:4... Start Date: 03/22/20 Stop Date: 03/17/21 Status: Ordered [place] Saline Mist 0.65% nasal spray 2 sprays, Nares, Both, 4 times a day, # 45 mL, 0 Refills, Maintenance, 03/19/20 10:33:00 EST, [facility] #[id number], Partial fill upon patient request if the prescription is for a schedule II opioid drug., 2 sprays Nares, Both 4 times a day, 152... Start Date: 03/19/20 Status: Ordered cholecalciferol 2000 intl units oral capsule 1 capsule = 2,000 International_Units, By Mouth, Daily, # 90 capsule, 1 Refills, Maintenance, 01/28/20 7:32:00 EDT, Capsule, [facility] #[id number], 152.4, cm, 01/22/20 11:23:00 EDT, Height, 61.5, kg, 02/21/19 10:49:00 EST, Dry Weight Start Date: 01/28/20 Stop Date: 07/26/20 Status: Ordered dextromethorphan-guaifenesin 10 mg-200 mg/5 mL oral liquid 5 mL, By Mouth, Every 6 hours, PRN for cough, # 200 mL, 0 Refills, Maintenance, 03/19/20 10:35:00 EST, Liquid, [facility] #[id number], Partial fill upon patient request if the prescription is for a schedule II opioid drug., 5 mL By Mouth Every 6... Start Date: 03/19/20 Status: Ordered ibuprofen 200 mg oral tablet 400 mg, 2, tablet, By Mouth, Every 6 hours, # 100 tablet, Refills 0, Tot. Refills 0, Maintenance, 03/19/20 10:32:00 EST, Route to Pharmacy Electronically, [facility] #[id number], Partial fill upon patient request if the prescription is for a sche... Start Date: 03/19/20 Status: Ordered omeprazole 40 mg oral enteric coated capsule 1 capsule = 40 mg, By Mouth, 2 times a day, # 60 capsule, 2 Refills, Maintenance, 03/25/20 9:29:00 EST, CR Capsule, [facility] #[id number], 152.4, cm, 01/22/20 11:23:00 EDT, Height, 61.5, kg, 02/21/19 10:49:00 EST, Dry Weight Start Date: 03/25/20 Stop Date: 06/23/20 Status: Ordered ondansetron 4 mg oral tablet 1 tablet = 4 mg, By Mouth, Every 8 hours, # 90 tablet, 0 Refills, Maintenance, 03/30/20 9:51:00 EST, Tablet, [facility] #[id number], Partial fill upon patient request if the prescription is for a schedule II opioid drug., 152.4, cm, 01/22/20 11:2... Start Date: 03/30/20 Status: Ordered Tylenol 325 mg oral capsule 2 capsule = 650 mg, By Mouth, Every 4 hours, PRN as needed for fever, # 90 capsule, 0 Refills, Maintenance, 03/19/20 10:31:00 EST, Capsule, [facility] #[id number], Partial fill upon patient request if the prescription is for a schedule II opioid... Start Date: 03/19/20 Status: Ordered ZyrTEC 10 mg oral tablet 1 tablet = 10 mg, By Mouth, Daily, # 30 tablet, 3 Refills, Maintenance, 09/30/19 14:57:00 EDT, Tablet, [facility] #[id number], 152.4, cm, 04/09/19 11:38:00 EST, Height, 61.5, kg, 02/21/19 10:49:00 EST, Dry Weight Start Date: 09/30/19 Status: Ordered Problem List Condition Effective Dates Status Health Status Inform ant Back pain(Confirmed) Active Renal stones(Confirmed) Active Migraine(Confirmed) Active Social History Social History Type Response Smoking Status Never smoker entered on: 07/28/15 Sex Female
--- OUTSIDE RECORDS SUMMARY | 2022-09-09 10:43 | XMS_ITS | Continuity of Care Document ---
Author Name Unknown Organization [facility] Address [address] [place] [address]- Care Team Providers Care Stitcher Set Up Operator Automatic Name Role Loader DemolderFelix Denise MD Primary Care Physician Encounter [facility] Date(s): 02/08/21 - 03/10/[address] [address] Allergies, Adverse Reactions, Alerts Substance Reaction [...] capsule, 1 Refills, Maintenance, 02/17/21 9:46:00 EST, [facility] #[id number], 1 capsule By Mouth Every 4 hours,PRN: NEEDED, 150, cm, 02/17/21 9:13:00 EST, Height, 60.2, kg, 11/18/20 16:28... Start Date: 02/17/21 Status: Ordered amitriptyline 25 mg oral tablet 50 mg, 2, tablet, By Mouth, Daily at bedtime, # 180 tablet, Refills 3, Tot. Refills 3, Maintenance,10/18/21 13:21:00 EDT, Route to Pharmacy Electronically, [facility] #[id number], 150, cm, 02/17/21 9:13:00 EST, Height, 60.2, kg, 11/18/20 16:28:0... Start Date: 10/18/21 Stop Date: 10/13/22 Status: Ordered amitriptyline 25 mg oral tablet 50 mg, 2, tablet, By Mouth, Daily at bedtime, for 90 days, # 180 tablet, Refills 3, Tot. Refills 3,Hard Stop 10/18/21 13:21:00 EDT, 10/23/20 13:21:00 EDT, Route to Pharmacy Electronically, [facility] #[id number], 150, cm, 10/23/20 13:15:00 EDT,... Start Date: 10/23/20 Stop Date: 10/18/21 Status: Ordered cetirizine 10 mg oral tablet 1 tablet, By Mouth, Daily, # 30 tablet, 0 Refills, [facility] #[id number], 150, cm, 02/08/21 15:46:00 EDT, Height, 60.2, kg, 11/18/20 16:28:00 EDT, Dry Weight Start Date: 02/15/21 Status: Ordered cholecalciferol 2000 intl units oral capsule 1 capsule = 2,000 International_Units, By Mouth, Daily, # 90 capsule, 1 Refills, Maintenance, 01/28/20 7:32:00 EDT, Capsule, [facility] #[id number], 152.4, cm, 01/22/20 11:23:00 EDT, Height, 61.5, kg, 02/21/19 10:49:00 EST, Dry Weight Start Date: 01/28/20 Stop Date: 07/26/20 Status: Ordered cyclobenzaprine 5 mg oral tablet See Instructions, 1-2 tablet By Mouth 3 times a day prn muscle spasms, # 30 capsule, 0 Refills, Acute 03/19/21 9:42:00 EST, 02/17/21 9:41:00 EST, [facility] #[id number], Partial fill upon patient request if the prescription is for a schedule II o... Start Date: 02/17/21 Stop Date: 03/19/21 Status: Ordered diclofenac sodium 25 mg oral delayed release tablet 1 tablet = 25 mg, By Mouth, 3 times a day, PRN Pain, # 90 tablet, 0 Refills, Maintenance, 02/08/21 16:40:00 EDT, EC Tablet, [facility] #[id number], Partial fill upon patient request if the prescription is for a schedule II opioid drug., 150, cm,... Start Date: 02/08/21 Status: Ordered fluticasone 50 mcg/inh nasal spray See Instructions, SHAKE LIQUID AND USE 1 SPRAY IN EACH NOSTRIL TWICE DAILY, # 16 Gm, 0 Refills, [facility] #[id number], 30, SHAKE LIQUID AND USE 1 SPRAY IN EACH NOSTRIL TWICE DAILY, 150, cm, 02/08/21 15:46:00 EDT, Height, 60.2, kg, 11/18/20 16:28... Start Date: 02/15/21 Status: Ordered lidocaine 5% topical film 1 patch, Topically, Daily, remove patches after 12 hours, # 30 patch, 0 Refills, Maintenance, 02/10/21 18:52:00 EDT, [facility] #[id number], Partial fill upon patient request if the prescriptionis for a schedule II opioid drug., 1 patch Topicall... Start Date: 02/10/21 Stop Date: 03/12/21 Status: Ordered lidocaine 5% topical film 1 patch, Topically, Daily, REMOVE AFTER 12 HOURS NEEDED FOR PAIN, # 13 patch, 0 Refills, [facility] #[id number], 13, APPLY 1 PATCH TOPICALLY TO AFFECTED AREA EVERY DAY. REMOVE AFTER 12 HOURS NEEDED FOR PAIN, 150, cm, 11/18/20 16:25:00 EDT,... Start Date: 02/06/21 Status: Ordered MiraLax oral powder for reconstitution = 17 Gm, By Mouth, Daily, dissolve in water before taking, # 255 Gm, 0 Refills, Maintenance, 10/23/20 13:22:00 EDT, REC Powder, [facility] #[id number], Partial fill upon patient request if the prescription is for a schedule II opioid drug., 17 Gm... Start Date: 10/23/20 Status: Ordered omeprazole 40 mg oral enteric coated capsule 1 capsule, By Mouth, 2 times a day, # 60 capsule, 1 Refills, Maintenance, 10/23/20 13:22:00 EDT, [facility] #[id number], 150, cm, 10/23/20 13:15:00 EDT, Height, 60.8, kg, 08/05/20 11:45:00 EDT, Dry Weight Start Date: 10/23/20 Status: Ordered SUMAtriptan 25 mg oral tablet 1 tablet = 25 mg, By Mouth, Once, At onset of headache. May repeat in 2 hours, # 1 tablet, 2 Refills, Soft Stop, 02/17/21 9:46:00 EST, Tablet, [facility] #[id number], Partial fill upon patient request if the prescription is for a schedule II opio... Start Date: 02/17/21 Status: Ordered Tylenol 325 mg oral capsule 2 capsule = 650 mg, By Mouth, Every 4 hours, PRN as needed for fever, # 90 capsule, 0 Refills, Maintenance, 10/23/20 13:20:00 EDT, Capsule, [facility] #[id number], Partial fill upon patient request if the prescription is for a schedule II opioid... Start Date: 10/23/20 Status: Ordered Problem List Condition Effective Dates Status Health Status Inform ant Back pain(Confirmed) Active Renal stones(Confirmed) Active Migraine(Confirmed) Active Social History Social History Type Response Smoking Status Never smoker entered on: 07/28/15 Sex
--- OUTSIDE RECORDS SUMMARY | 2022-09-09 10:43 | XMS_ITS | Continuity of Care Document ---
Author Name Unknown Organization [facility] Address [address] [place] [id number]- Care Team Providers Care Front End Drupal Developer Name Role Phone Prior Wesly GRAYSON Primary Care Physician Encounter [facility] [place] Date(s): 05/02/20 - 05/04/[address] [address]- Encounter Diagnosis Urinary tract infection in female(Final) - 05/02/20 Discharge Disposition: A-D/C Home Attending Physician: Reji Mascorro MD Admitting Physician: Nasreen Terrell DO Referring Physician: Not on Staff, Referring [...] capsule, 0 Refills, Maintenance, 04/26/20 18:43:00 [facility], [facility] #[id number], 1 capsule By Mouth Every 4 hours,PRN: NEEDED, 152.4, cm,01/22/20 11:23:00 EDT, Height, 61.5, kg, 02/21/19 1... Start Date: 04/26/20 Status: Ordered amitriptyline 25 mg oral tablet 50 mg, 2, tablet, By Mouth, Daily at bedtime, # 180 tablet, Refills 3, Tot. Refills 3, Maintenance,03/22/20 17:53:00 EST, Route to Pharmacy Electronically, [facility] #[id number], 152.4, cm, 01/22/20 11:23:00 EDT, Height, 61.5, kg, 02/21/19 10:4... Start Date: 03/22/20 Stop Date: 03/17/21 Status: Ordered [place] Saline Mist 0.65% nasal spray 2 sprays, Nares, Both, 4 times a day, # 45 mL, 0 Refills, Maintenance, 03/19/20 10:33:00 EST, [facility] #[id number], Partial fill upon patient request if the prescription is for a schedule II opioid drug., 2 sprays Nares, Both 4 times a day, 152... Start Date: 03/19/20 Status: Ordered cholecalciferol 2000 intl units oral capsule 1 capsule = 2,000 International_Units, By Mouth, Daily, # 90 capsule, 1 Refills, Maintenance, 01/28/20 7:32:00 EDT, Capsule, [facility] #[id number], 152.4, cm, 01/22/20 11:23:00 EDT, Height, 61.5, kg, 02/21/19 10:49:00 EST, Dry Weight Start Date: 01/28/20 Stop Date: 07/26/20 Status: Ordered dextromethorphan-guaifenesin 10 mg-200 mg/5 mL oral liquid 5 mL, By Mouth, Every 6 hours, PRN for cough, # 200 mL, 0 Refills, Maintenance, 03/19/20 10:35:00 EST, Liquid, [facility] #[id number], Partial fill upon patient request if the prescription is for a schedule II opioid drug., 5 mL By Mouth Every 6... Start Date: 03/19/20 Status: Ordered ibuprofen 200 mg oral tablet 400 mg, 2, tablet, By Mouth, Every 6 hours, # 100 tablet, Refills 0, Tot. Refills 0, Maintenance, 03/19/20 10:32:00 EST, Route to Pharmacy Electronically, [facility] #[id number], Partial fill upon patient request if the prescription is for a sche... Start Date: 03/19/20 Status: Ordered levoFLOXacin 750 mg oral tablet 1 tablet = 750 mg, By Mouth, Every 24 hours, for 5 days, # 5 tablet, 0 Refills, Acute 05/10/20 9:00:00 EST, 05/05/20 9:00:00 EST, Tablet, [facility] #[id number], Partial fill upon patient request if the prescription is for a schedule II opioid dr... Start Date: 05/05/20 Stop Date: 05/10/20 Status: Ordered MiraLax oral powder for reconstitution = 17 Gm, By Mouth, Daily, dissolve in water before taking, # 255 Gm, 0 Refills, Maintenance, 05/04/20 12:19:00 EST, REC Powder, [facility] #[id number], Partial fill upon patient request if the prescription is for a schedule II opioid drug., 17 Gm... Start Date: 05/04/20 Status: Ordered omeprazole 40 mg oral enteric coated capsule 1 capsule = 40 mg, By Mouth, 2 times a day, # 60 capsule, 2 Refills, Maintenance, 03/25/20 9:29:00 EST, CR Capsule, [facility] #[id number], 152.4, cm, 01/22/20 11:23:00 EDT, Height, 61.5, kg, 02/21/19 10:49:00 EST, Dry Weight Start Date: 03/25/20 Stop Date: 06/23/20 Status: Ordered ondansetron 4 mg oral tablet, disintegrating 1 tablet = 4 mg, By Mouth, Every 8 hours, PRN as needed for nausea/vomiting, # 30 tablet, 0 Refills, Maintenance, 04/28/20 5:09:00 EST, DIS Tablet, [facility] #[id number], Partial fill upon patient request if the prescription is for a schedule II... Start Date: 04/28/20 Stop Date: 05/05/20 Status: Ordered Pyridium 100 mg oral tablet 1 tablet = 100 mg, By Mouth, 3 times a day, for 7 days, # 21 tablet, 0 Refills, Acute 05/05/20 5:08:00 EST, 04/28/20 5:08:00 EST, Tablet, [facility] #[id number], Partial fill upon patient request if the prescription is for a schedule II opioid Start Date: 04/28/20 Stop Date: 05/05/20 Status: Ordered traMADol 50 mg oral tablet 50 mg, Tablet, By Mouth, Every 6 hours, PRN for Pain , Moderate, Routine, 05/02/20 20:02:00 EST Start Date: 05/02/20 Stop Date: 06/01/20 Status: Ordered Tylenol 325 mg oral capsule 2 capsule = 650 mg, By Mouth, Every 4 hours, PRN as needed for fever, # 90 capsule, 0 Refills, Maintenance, 03/19/20 10:31:00 EST, Capsule, [facility] #[id number], Partial fill upon patient request if the prescription is for a schedule II opioid... Start Date: 03/19/20 Status: Ordered ZyrTEC 10 mg oral tablet 1 tablet = 10 mg, By Mouth, Daily, # 30 tablet, 3 Refills, Maintenance, 09/30/19 14:57:00 EDT, Tablet, [facility] #[id number], 152.4, cm, 04/09/19 11:38:00 EST, Height, 61.5, kg, 02/21/19 10:49:00 EST, Dry Weight Start Date: 09/30/19 Status: Ordered Problem List Condition Effective Dates Status Health Status Inform ant Back pain(Confirmed) Active COVID-19(Confirmed) 1, 2 Active Renal stones(Confirmed) Active Migraine(Confirmed) Active 1clinical diagnosis March 2020; unconfirmed by testing, see external record [id number]: Resolved due to 21 days post identification. Vital Signs Most recent to oldest [Reference Range]: 1 2 3 Height 150 cm (05/04/20 11:32 AM) 150 cm (05/04/20 7:55 AM) 150 cm (05/04/20 4:39 AM) Weight 64.5 kg (05/02/20 6:46 PM) Oxygen Saturation [94-100 %] 95 % (05/04/20 11:32 AM) 99 % (05/04/20 7:55 AM) 97 % (05/04/20 4:39 AM) Pulse Rate [55-90 bpm] 89 bpm (05/04/20 11:32 AM) 94 bpm *H* (05/04/20 7:55 AM) 76 bpm (05/04/20 4:39 AM) Body Mass Index [18.5-24.99] 28.67 *H* (05/02/20 6:46 PM) Blood Pressure [90-138/55-84 mm Hg] 126/82mm Hg (05/04/20 11:32 AM) 121/85mm Hg (05/04/20 7:55 AM) 118/69mm Hg (05/04/20 4:39 AM) Respiratory Rate [16-30 br/min] 18 br/min (05/04/20 1:48 PM) 20 br/min (05/04/20 11:32 AM) 18 br/min (05/04/20 10:37 AM) Temperature [96.8-100.4 DegF] 98.1 DegF (05/04/20 11:32 AM) 97.3 DegF (05/04/20 7:55 AM) 98.4 DegF (05/04/20 4:39 AM) Mode of Delivery (Oxygen) Room air (05/04/20 11:32 AM) Room air (05/04/20 7:55 AM) Room air (05/04/20 4:39 AM) Blood pressure sites Arm, left (05/04/20 11:32 AM) Arm, left (05/04/20 7:55 AM) Arm, left (05/04/20 4:39 AM) Temperature Route Oral (05/04/20 11:32 AM) Oral (05/04/20 7:55 AM) Oral (05/04/20 4:39 AM) Dry Weight 64.5 kg (05/02/20 6:46 PM) Weight Obtained Via Bed scale (05/02/20 6:46 PM) Dry Weight Obtained Via Bed scale (05/02/20 6:46 PM) Social History Social History Type Response Smoking Status Never smoker entered on: 07/28/15 Sex Female
--- OUTSIDE RECORDS SUMMARY | 2022-09-09 10:43 | XMS_ITS | Continuity of Care Document ---
Author Name Unknown Organization [facility] Address [address] [place] [address]- Care Team Providers Care Supervisor Metal Furniture Fabrication Name Role Mother SuperiorFelix Denise MD Primary Care Physician Encounter [facility] Date(s): 04/23/21 - 05/23/[address] [address]- Allergies, Adverse Reactions, Alerts Substance Reaction Severity [...] capsule, 3 Refills, Maintenance, 04/29/21 10:53:00 EST, [facility] #[id number], 1 capsule By Mouth Every 4 hours,PRN: NEEDED, 150, cm, 02/17/21 9:13:00 EST, Height, 60.2, kg, 11/18/20 16:2... Start Date: 04/29/21 Status: Ordered amitriptyline 25 mg oral tablet 50 mg, 2, tablet, By Mouth, Daily at bedtime, for 90 days, # 180 tablet, Refills 3, Tot. Refills 3,Hard Stop 10/18/21 13:21:00 EDT, 10/23/20 13:21:00 EDT, Route to Pharmacy Electronically, [facility] #[id number], 150, cm, 10/23/20 13:15:00 EDT,... Start Date: 10/23/20 Stop Date: 10/18/21 Status: Ordered cetirizine 10 mg oral tablet 1 tablet, By Mouth, Daily, as needed for itching/allergies, # 30 tablet, 11 Refills, 04/29/21 11:04:00 EST, [facility] #[id number], 150, cm, 02/17/21 9:13:00 EST, Height, 60.2, kg, 11/18/20 16:28:00 EDT, Dry Weight Start Date: 04/29/21 Status: Ordered fluticasone 50 mcg/inh nasal spray See Instructions, SHAKE LIQUID AND USE 1 SPRAY IN EACH NOSTRIL TWICE DAILY, # 16 Gm, 0 Refills, [facility] #[id number], 30, SHAKE LIQUID AND USE 1 SPRAY IN EACH NOSTRIL TWICE DAILY, 150, cm, 02/08/21 15:46:00 EDT, Height, 60.2, kg, 11/18/20 16:28... Start Date: 02/15/21 Status: Ordered lidocaine 5% topical film 1 patch, Topically, Daily, remove patches after 12 hours, # 30 patch, 0 Refills, Maintenance, 02/10/21 18:52:00 EDT, [facility] #[id number], Partial fill upon patient request if the prescriptionis for a schedule II opioid drug., 1 patch Topicall... Start Date: 02/10/21 Stop Date: 03/12/21 Status: Ordered lidocaine 5% topical film 1 patch, Topically, Daily, REMOVE AFTER 12 HOURS NEEDED FOR PAIN, # 13 patch, 0 Refills, [facility] #[id number], 13, APPLY 1 PATCH TOPICALLY TO AFFECTED AREA EVERY DAY. REMOVE AFTER 12 HOURS NEEDED FOR PAIN, 150, cm, 11/18/20 16:25:00 EDT,... Start Date: 02/06/21 Status: Ordered MiraLax oral powder for reconstitution = 17 Gm, By Mouth, Daily, dissolve in water before taking, # 255 Gm, 0 Refills, Maintenance, 10/23/20 13:22:00 EDT, REC Powder, [facility] #[id number], Partial fill upon patient request if the [...] 0 Refills, Maintenance, 04/29/21 10:54:00 EST, Tablet, [facility] #[id number], Partial fill upon patient request if the prescription i... Start Date: 04/29/21 Status: Ordered omeprazole 40 mg oral enteric coated capsule 1 capsule, By Mouth, Daily, as needed, # 30 capsule, 11 Refills, Maintenance, 04/29/21 11:03:00 EST, [facility] #[id number], 150, cm, 02/17/21 9:13:00 EST, Height, 60.2, kg, 11/18/20 16:28:00 EDT, Dry Weight Start Date: 04/29/21 Status: Ordered omeprazole 40 mg oral enteric coated capsule See Instructions, TAKE 1 CAPSULE BY MOUTH TWICE DAILY, # 180 capsule, 0 Refills, [facility] #[id number], 150, cm, 02/17/21 9:13:00 EST, Height, 60.2, kg, 11/18/20 16:28:00 EDT, Dry Weight Start Date: 03/29/21 Status: Ordered predniSONE 10 mg oral tablet See Instructions, For acute migraine. Take with food. Day 1 = 40mg. Day 2 = 30mg. Day 3 = 20mg Day 4 = 10mg, # 10 tablet, 0 Refills, Maintenance, 04/29/21 10:56:00 EST, [facility] #[id number], Partial fill upon patient request if the prescrip... Start Date: 04/29/21 Status: Ordered SUMAtriptan 25 mg oral tablet 1 tablet = 25 mg, By Mouth, Once, At onset of headache. May repeat in 2 hours. Take with naproxen, # 9 tablet, 2 Refills, Soft Stop, 04/29/21 10:53:00 EST, Tablet, [facility] #[id number], Partial fill upon patient request if the prescription is... Start Date: 04/29/21 Status: Ordered Tylenol 325 mg oral capsule 2 capsule = 650 mg, By Mouth, Every 4 hours, PRN as needed for fever, # 90 capsule, 0 Refills, Maintenance, 10/23/20 13:20:00 EDT, Capsule, [facility] #[id number], Partial fill upon patient request if the [...]
--- OUTSIDE RECORDS SUMMARY | 2022-09-09 10:43 | XMS_ITS | Continuity of Care Document ---
Author Name Unknown Organization [facility] Address [address] [place] [address]- Care Team Providers Care Optical Instrument Assembler Name Role Phone Prior Wesly GRAYSON Primary Care Physician Encounter [facility] Date(s): 04/01/20 - 05/01/[address] [address]- Allergies, Adverse Reactions, Alerts Substance Reaction Severity Status oxyCODONE 1 Active 1itchy Immunizations Given and Recorded Vaccine Date Status Refusal Reason influenza virus vaccine, inactivated 04/28/16 Give n influenza virus vaccine, inactivated 02/18/15 Give n tetanus/diphtheria/pertussis, acel(Tdap) 07/16/15 Given Medications acetaminophen/butalbital/caffeine 300 mg-50 mg-40 mg oral capsule 1 capsule, By Mouth, Every 4 hours, PRN NEEDED, # 20 capsule, 0 Refills, Maintenance, 04/26/20 18:43:00 EST, [facility] #[id number], 1 capsule By Mouth Every 4 hours,PRN: NEEDED, 152.4, cm,01/22/20 11:23:00 EDT, Height, 61.5, kg, 02/21/19 1... Start Date: 04/26/20 Status: Ordered amitriptyline 25 mg oral tablet 50 mg, 2, tablet, By Mouth, Daily at bedtime, # 180 tablet, Refills 3, Tot. Refills 3, Maintenance,03/22/20 17:53:00 EST, Route to Pharmacy Electronically, [facility] #[id number], 152.4, cm, 01/22/20 11:23:00 EDT, Height, 61.5, kg, 02/21/19 10:4... Start Date: 03/22/20 Stop Date: 03/17/21 Status: Ordered Wheeler Saline Mist 0.65% nasal spray 2 sprays, Nares, Both, 4 times a day, # 45 mL, 0 Refills, Maintenance, 03/19/20 10:33:00 EST, [facility] #[id number], Partial fill upon patient request if the prescription is for a schedule II opioid drug., 2 sprays Nares, Both 4 times a day, 152... Start Date: 03/19/20 Status: Ordered cholecalciferol 2000 intl units oral capsule 1 capsule = 2,000 International_Units, By Mouth, Daily, # 90 capsule, 1 Refills, Maintenance, 01/28/20 7:32:00 EDT, Capsule, [facility] #[id number], 152.4, cm, 01/22/20 11:23:00 EDT, Height, 61.5, kg, 02/21/19 10:49:00 EST, Dry Weight Start Date: 01/28/20 Stop Date: 07/26/20 Status: Ordered ciprofloxacin 500 mg oral tablet 1 tablet = 500 mg, By Mouth, Every 12 hours, for 7 days, # 14 tablet, 0 Refills, Acute 05/05/20 5:09:00 EST, 04/28/20 5:09:00 EST, Tablet, [facility] #[id number], Partial fill upon patient request if the prescription is for a schedule II opioid d... Start Date: 04/28/20 Stop Date: 05/05/20 Status: Ordered dextromethorphan-guaifenesin 10 mg-200 mg/5 mL oral liquid 5 mL, By Mouth, Every 6 hours, PRN for cough, # 200 mL, 0 Refills, Maintenance, 03/19/20 10:35:00 EST, Liquid, [facility] #[id number], Partial fill upon patient request if the prescription is for a schedule II opioid drug., 5 mL By Mouth Every 6... Start Date: 03/19/20 Status: Ordered ibuprofen 200 mg oral tablet 400 mg, 2, tablet, By Mouth, Every 6 hours, # 100 tablet, Refills 0, Tot. Refills 0, Maintenance, 03/19/20 10:32:00 EST, Route to Pharmacy Electronically, [facility] #[id number], Partial fill upon patient request if the prescription is for a sche... Start Date: 03/19/20 Status: Ordered omeprazole 40 mg oral enteric coated capsule 1 capsule = 40 mg, By Mouth, 2 times a day, # 60 capsule, 2 Refills, Maintenance, 03/25/20 9:29:00 EST, CR Capsule, [facility] #[id number], 152.4, cm, 01/22/20 11:23:00 EDT, Height, 61.5, kg, 02/21/19 10:49:00 EST, Dry Weight Start Date: 03/25/20 Stop Date: 06/23/20 Status: Ordered ondansetron 4 mg oral tablet 1 tablet = 4 mg, By Mouth, Every 8 hours, # 90 tablet, 0 Refills, Maintenance, 03/30/20 9:51:00 EST, Tablet, [facility] #[id number], Partial fill upon patient request if the prescription is for a schedule II opioid drug., 152.4, cm, 01/22/20 11:2... Start Date: 03/30/20 Status: Ordered ondansetron 4 mg oral tablet, disintegrating 1 tablet = 4 mg, By Mouth, Every 8 hours, PRN as needed for nausea/vomiting, # 30 tablet, 0 Refills, Maintenance, 04/28/20 5:09:00 EST, DIS Tablet, [facility] #[id number], Partial fill upon patient request if the prescription is for a schedule II... Start Date: 04/28/20 Stop Date: 05/05/20 Status: Ordered Pyridium 100 mg oral tablet 1 tablet = 100 mg, By Mouth, 3 times a day, for 7 days, # 21 tablet, 0 Refills, Acute 05/05/20 5:08:00 EST, 04/28/20 5:08:00 EST, Tablet, [facility] #[id number], Partial fill upon patient request if the prescription is for a schedule II opioid dr... Start Date: 04/28/20 Stop Date: 05/05/20 Status: Ordered traMADol 50 mg oral tablet 1 tablet = 50 mg, By Mouth, Every 4 hours, PRN as needed for pain, for 2 days, # 12 tablet, 0 Refills, Acute 05/03/20 15:02:00 EST, 05/01/20 15:02:00 EST, Tablet, [facility] #[id number], Partialfill upon patient request if the prescription is fo... Start Date: 05/01/20 Stop Date: 05/03/20 Status: Ordered Tylenol 325 mg oral capsule 2 capsule = 650 mg, By Mouth, Every 4 hours, PRN as needed for fever, # 90 capsule, 0 Refills, Maintenance, 03/19/20 10:31:00 EST, Capsule, [facility] #[id number], Partial fill upon patient request if the prescription is for a schedule II opioid... Start Date: 03/19/20 Status: Ordered ZyrTEC 10 mg oral tablet 1 tablet = 10 mg, By Mouth, Daily, # 30 tablet, 3 Refills, Maintenance, 09/30/19 14:57:00 EDT, Tablet, [facility] #[id number], 152.4, cm, 04/09/19 11:38:00 EST, Height, 61.5, kg, 02/21/19 10:49:00 EST, Dry Weight Start Date: 09/30/19 Status: Ordered Problem List Condition Effective Dates Status Health Status Inform ant Back pain(Confirmed) Active COVID-19(Confirmed) 1, 2 Active Renal stones(Confirmed) Active Migraine(Confirmed) Active 1clinical diagnosis March 2020; unconfirmed by testing, see external record [id number]: Resolved due to 21 days post identification. Social History Social History Type Response Smoking Status Never smoker entered on: 07/28/15 Sex Female
--- OUTSIDE RECORDS SUMMARY | 2022-09-09 10:43 | XMS_ITS | Continuity of Care Document ---
Author Name Unknown Organization [facility] Address [address] [place] [address]- Care Team Providers Care Audio Visual Coordinator Name Role Phone Prior Wesly GRAYSON Primary Care Physician Encounter [facility] Date(s): 02/28/19 - 04/26/[address] [address]- [facility] Attending Physician: Flakita Taylor MD, I Admitting Physician: Flakita Taylor MD, I Referring Physician: Lexie Sotelo Allergies, Adverse Reactions, Alerts Substance Reaction Severity [...]
--- OUTSIDE RECORDS SUMMARY | 2022-09-09 10:43 | XMS_ITS | Continuity of Care Document ---
Author Name Unknown Organization [facility] Address [address] [place] [address]- Care Team Providers Care Granite Chip Terrazzo Finisher Name Role Phone Prior Wesly GRAYSON Primary Care Physician [phone] Encounter [facility] Date(s): 03/20/20 - 04/19/[address] [address]- Allergies, Adverse Reactions, Alerts Substance Reaction Severity Status NKA Active Immunizations Given and Recorded Vaccine Date Status Refusal Reason influenza virus vaccine, inactivated 04/28/16 Give n influenza virus vaccine, inactivated 02/18/15 Give n tetanus/diphtheria/pertussis, acel(Tdap) 07/16/15 Given Medications acetaminophen/butalbital/caffeine 300 mg-50 mg-40 mg oral capsule 1 capsule, By Mouth, Every 4 hours, PRN NEEDED, # 20 capsule, 0 Refills, Maintenance, 04/26/20 18:43:00 EST, [id number], 1 capsule By Mouth Every 4 hours,PRN: [...] Maintenance,03/22/20 17:53:00 EST, Route to Pharmacy Electronically, [facility] #[id number], 152.4, cm, 01/22/20 11:23:00 EDT, Height, 61.5, kg, 02/21/19 10:4... Start Date: 03/22/20 Stop Date: 03/17/21 Status: Ordered Willow Saline Mist 0.65% nasal spray 2 sprays, Nares, Both, 4 times a day, # 45 mL, 0 Refills, Maintenance, 03/19/20 10:33:00 EST, [facility] #[id number], Partial fill upon patient request if the prescription is for a schedule II opioid drug., 2 sprays Nares, Both 4 times a day, 152... Start Date: 03/19/20 Status: Ordered cholecalciferol 2000 intl units oral capsule 1 capsule = 2,000 International_Units, By Mouth, Daily, # 90 capsule, 1 Refills, Maintenance, 01/28/20 7:32:00 EDT, Capsule, [facility] #[id number], 152.4, cm, 01/22/20 11:23:00 EDT, Height, 61.5, kg, 02/21/19 10:49:00 EST, Dry Weight Start Date: 01/28/20 Stop Date: 07/26/20 Status: Ordered dextromethorphan-guaifenesin 10 mg-200 mg/5 mL oral liquid 5 mL, By Mouth, Every 6 hours, PRN for cough, # 200 mL, 0 Refills, Maintenance, 03/19/20 10:35:00 EST, Liquid, [facility] #[id number], Partial fill upon patient request if the prescription is for a schedule II opioid drug., 5 mL By Mouth Every 6... Start Date: 03/19/20 Status: Ordered ibuprofen 200 mg oral tablet 400 mg, 2, tablet, By Mouth, Every 6 hours, # 100 tablet, Refills 0, Tot. Refills 0, Maintenance, 03/19/20 10:32:00 EST, Route to Pharmacy Electronically, [facility] #[id number], Partial fill upon patient request if the prescription is for a sche... Start Date: 03/19/20 Status: Ordered omeprazole 40 mg oral enteric coated capsule 1 capsule = 40 mg, By Mouth, 2 times a day, # 60 capsule, 2 Refills, Maintenance, 03/25/20 9:29:00 EST, CR Capsule, [facility] #[id number], 152.4, cm, 01/22/20 11:23:00 EDT, Height, 61.5, kg, 02/21/19 10:49:00 EST, Dry Weight Start Date: 03/25/20 Stop Date: 06/23/20 Status: Ordered ondansetron 4 mg oral tablet 1 tablet = 4 mg, By Mouth, Every 8 hours, # 90 tablet, 0 Refills, Maintenance, 03/30/20 9:51:00 EST, Tablet, [facility] #[id number], Partial fill upon patient request if the prescription is for a schedule II opioid drug., 152.4, cm, 01/22/20 11:2... Start Date: 03/30/20 Status: Ordered Tylenol 325 mg oral capsule 2 capsule = 650 mg, By Mouth, Every 4 hours, PRN as needed for fever, # 90 capsule, 0 Refills, Maintenance, 03/19/20 10:31:00 EST, Capsule, [facility] #[id number], Partial fill upon patient request if the prescription is for a schedule II opioid... Start Date: 03/19/20 Status: Ordered ZyrTEC 10 mg oral tablet 1 tablet = 10 mg, By Mouth, Daily, # 30 tablet, 3 Refills, Maintenance, 09/30/19 14:57:00 EDT, Tablet, [facility] #[id number], 152.4, cm, 04/09/19 11:38:00 EST, Height, 61.5, kg, 02/21/19 10:49:00 EST, Dry Weight Start Date: 09/30/19 Status: Ordered Problem List Condition Effective Dates Status Health Status Inform ant Back pain(Confirmed) Active Renal stones(Confirmed) Active Migraine(Confirmed) Active Social History Social History Type Response Smoking Status Never smoker entered on: 07/28/15 Sex Female
--- OUTSIDE RECORDS SUMMARY | 2022-09-09 10:43 | XMS_ITS | Continuity of Care Document ---
Author Name Unknown Organization [facility] Address [address] [place] [address]- Care Team Providers Care Market Research Senior Project Manager Name Role Time Study ClerkFelix Denise MD Primary Care Physician Encounter [facility] Date(s): 04/13/22 - 05/13/[address] [address]- Allergies, Adverse Reactions, Alerts Substance Reaction Severity [...] capsule, 3 Refills, Maintenance, 04/29/21 10:53:00 EST, [facility] #[id number], 1 capsule By Mouth Every 4 hours,PRN: NEEDED, 150, cm, 02/17/21 9:13:00 EST, Height, 60.2, kg, 11/18/20 16:2... Start Date: 04/29/21 Status: Ordered amitriptyline 50 mg oral tablet 2 tablet = 100 mg, By Mouth, Daily at supper, NEEDS NEURO FOLLOW UP, # 60 tablet, 0 Refills, Maintenance, 04/07/22 18:34:00 EST, Tablet, [facility] #[id number], Partial fill upon patient requestif the prescription [...] 30 tablet, 11 Refills, 04/29/21 11:04:00 EST, [facility] #[id number], 150, cm, 02/17/21 9:13:00 EST, Height, 60.2, kg, 11/18/20 16:28:00 EDT, Dry Weight Start Date: 04/29/21 Status: Ordered drospirenone-ethinyl estradiol 3 mg-0.02 mg oral tablet 1 tablet, By Mouth, Daily, Maintenance Start Date: 08/18/21 Status: Ordered fluticasone 50 mcg/inh nasal spray See Instructions, SHAKE LIQUID AND USE 1 SPRAY IN EACH NOSTRIL TWICE DAILY, # 16 Gm, 0 Refills, [facility] #[id number], 30, SHAKE LIQUID AND USE 1 SPRAY IN EACH NOSTRIL TWICE DAILY, 150, cm, 02/08/21 15:46:00 EDT, Height, 60.2, kg, 11/18/20 16:28... Start Date: 02/15/21 Status: Ordered hydroCHLOROthiazide 12.5 mg oral capsule 1 capsule = 12.5 mg, By Mouth, Daily, # 30 capsule, 2 Refills, Maintenance, 01/19/22 17:34:00 EDT, Capsule, [facility] #[id number], 150, cm, 11/23/21 13:20:00 EDT, Height, 60.2, kg, 11/18/20 16:28:00 EDT, Dry Weight Start Date: 01/19/22 Status: Ordered lidocaine 2% topical gel with applicator 3 application, Topically, 3 times a day, PRN Pain , Mild, # 2 each, 0 Refills, Soft Stop, 04/21/22 8:51:00 EST, Gel, [facility] #[id number], Please give patient 1 month supply of topical lidocaine gel. Any formulatioon/strength that is covered by... Start Date: 04/21/22 Status: Ordered lidocaine 5% topical film 1 patch, Topically, Daily, remove patches after 12 hours, # 30 patch, 0 Refills, Maintenance, 02/10/21 18:52:00 EDT, [facility] #[id number], Partial fill upon patient request if the prescriptionis for a schedule II opioid drug., 1 patch Topicall... Start Date: 02/10/21 Stop Date: 03/12/21 Status: Ordered lidocaine 5% topical film 1 patch, Topically, Daily, REMOVE AFTER 12 HOURS NEEDED FOR PAIN, # 13 patch, 0 Refills, [facility] #[id number], 13, APPLY 1 PATCH TOPICALLY TO AFFECTED AREA EVERY DAY. REMOVE AFTER 12 HOURS NEEDED FOR PAIN, 150, cm, 11/18/20 16:25:00 EDT,... Start Date: 02/06/21 Status: Ordered MiraLax oral powder for reconstitution = 17 Gm, By Mouth, Daily, dissolve in water before taking, # 255 Gm, 1 Refills, Maintenance, 04/21/22 8:56:00 EST, REC Powder, [facility] #[id number], Partial fill upon patient request if the [...] tablet, 2 Refills, Maintenance, 05/12/22 10:47:00 EST, [facility] #[id number], 150, cm, 04/21/22 8:35:00 EST, Height, 60.2, kg, 11/18/20 16:28:00 EDT, DryWeight Start Date: 05/12/22 Status: Ordered nitroglycerin 0.4% rectal ointment 3 applications, Rectally, Every 12 hours, # 2 each, 0 Refills, Acute 05/23/22 8:56:00 EST, :55:00 EST, [facility] #[id number], Please give patient 1 month supply of topical nitroglycerin. Any formulatioon/strength that is covered by her... Start Date: 04/21/22 Stop Date: 05/23/22 Status: Ordered omeprazole 40 mg oral enteric coated capsule 1 capsule, By Mouth, Daily, PRN NEEDED, # 30 capsule, 2 Refills, Maintenance, 05/13/22 12:46:00 EST, [facility] #[id number], 150, cm, 04/21/22 8:35:00 EST, Height, 60.2, kg, 11/18/20 16:28:00EDT, Dry Weight Start Date: 05/13/22 Status: Ordered predniSONE 10 mg oral tablet See Instructions, For acute migraine. Take with food. Day 1 = 40mg. Day 2 = 30mg. Day 3 = 20mg Day 4 = 10mg, # 10 tablet, 0 Refills, Maintenance, 04/29/21 10:56:00 EST, [facility] #[id number], Partial fill upon patient request if the prescrip... Start Date: 04/29/21 Status: Ordered SUMAtriptan 25 mg oral tablet 1 tablet = 25 mg, By Mouth, Once, At onset of headache. May repeat in 2 hours. Take with naproxen, # 9 tablet, 2 Refills, Soft Stop, 04/29/21 10:53:00 EST, Tablet, [facility] #[id number], Partial fill upon patient request if the prescription is... Start Date: 04/29/21 Status: Ordered SUMAtriptan 50 mg oral tablet 1 tablet = 50 mg, By Mouth, Daily, PRN for migraine headache, may repeat dose after 2 hours up to amax 2 tabs / 24hrs ,no more than 3 doses/week, # 9 tablet, 2 Refills, Acute 08/16/22 11:35:00 EDT, 08/16/21 11:35:00 EDT, Tablet, [facility]... Start Date: 08/16/21 Stop Date: 08/16/22 Status: Ordered Tylenol 325 mg oral capsule 2 capsule = 650 mg, By Mouth, Every 4 hours, PRN as needed for fever, # 90 capsule, 0 Refills, Maintenance, 10/23/20 13:20:00 EDT, Capsule, [facility][id number], Partial fill upon patient request if the [...] Team Personnel Name: Felix Denise MD Position: [facility] Primary Care Physician Member Role: PCP Address: Address: [address] [place] [id number]- Name: Lexie Fernandez RN Position: [facility] RN Member Role: Primary Care Nurse Name: Jennifer Fink RN Position: [facility] RN Member Role: Primary Care Nurse Name: Bindu Drake RN Position: [facility] RN Member Role: Primary Care Nurse Name: Thomas Guerrero MD Position: [facility] PACKAGING TECHNICIAN MD Member Role: Lifetime PACKAGING TECHNICIAN Physician Address: Address: [address] [place] [address] [facility], [place] [address]- Care Team Related Persons Name: CLARITZA MENDOZA Address: home [address] [place] [address] Name: IRENE LI Address: home [address] [address]
--- OUTSIDE RECORDS SUMMARY | 2022-09-09 10:43 | XMS_ITS | Continuity of Care Document ---
Author Name Unknown Organization [facility] Address [address] [place] [address]- Care Team Providers Care Ham Curer Name Role Paper Bags Sewing Machine OperatorFelix Denise MD Primary Care Physician Encounter [facility] Date(s): 09/24/21 - 01/22/[address] [address] Attending Physician: Lo Braga MD Admitting Physician: Lo Braga MD Referring Physician: Felix Denise MD Allergies, [...] capsule, 3 Refills, Maintenance, 04/29/21 10:53:00 EST, [facility] #[id number], 1 capsule By Mouth Every 4 hours,PRN: NEEDED, 150, cm, 02/17/21 9:13:00 EST, Height, 60.2, kg, 11/18/20 16:2... Start Date: 04/29/21 Status: Ordered amitriptyline 50 mg oral tablet 2 tablet = 100 mg, By Mouth, Daily at supper, dose increase, # 60 tablet, 5 Refills, Maintenance, 08/16/21 11:32:00 EDT, Tablet, [facility] #[id number], Partial fill upon patient request if the [...] 30 tablet, 11 Refills, 04/29/21 11:04:00 EST, [facility] #[id number], 150, cm, 02/17/21 9:13:00 EST, Height, 60.2, kg, 11/18/20 16:28:00 EDT, Dry Weight Start Date: 04/29/21 Status: Ordered drospirenone-ethinyl estradiol 3 mg-0.02 mg oral tablet 1 tablet, By Mouth, Daily, Maintenance Start Date: 08/18/21 Status: Ordered fluticasone 50 mcg/inh nasal spray See Instructions, SHAKE LIQUID AND USE 1 SPRAY IN EACH NOSTRIL TWICE DAILY, # 16 Gm, 0 Refills, [facility] #[id number], 30, SHAKE LIQUID AND USE 1 SPRAY IN EACH NOSTRIL TWICE DAILY, 150, cm, 02/08/21 15:46:00 EDT, Height, 60.2, kg, 11/18/20 16:28... Start Date: 02/15/21 Status: Ordered hydroCHLOROthiazide 12.5 mg oral capsule 1 capsule = 12.5 mg, By Mouth, Daily, # 30 capsule, 2 Refills, Maintenance, 01/19/22 17:34:00 EDT, Capsule, [facility] #[id number], 150, cm, 11/23/21 13:20:00 EDT, Height, 60.2, kg, 11/18/20 16:28:00 EDT, Dry Weight Start Date: 01/19/22 Status: Ordered lidocaine 5% topical film 1 patch, Topically, Daily, remove patches after 12 hours, # 30 patch, 0 Refills, Maintenance, 02/10/21 18:52:00 EDT, [facility] #[id number], Partial fill upon patient request if the prescriptionis for a schedule II opioid drug., 1 patch Topicall... Start Date: 02/10/21 Stop Date: 03/12/21 Status: Ordered lidocaine 5% topical film 1 patch, Topically, Daily, REMOVE AFTER 12 HOURS NEEDED FOR PAIN, # 13 patch, 0 Refills, [facility] #[id number], 13, APPLY 1 PATCH TOPICALLY TO AFFECTED AREA EVERY DAY. REMOVE AFTER 12 HOURS NEEDED FOR PAIN, 150, cm, 11/18/20 16:25:00 EDT,... Start Date: 02/06/21 Status: Ordered MiraLax oral powder for reconstitution = 17 Gm, By Mouth, Daily, dissolve in water before taking, # 255 Gm, 0 Refills, Maintenance, 10/23/20 13:22:00 EDT, REC Powder, [facility] #[id number], Partial fill upon patient request if the [...] a day, # 60 tablet, 0 Refills, [facility] #[id number], 150, cm, 08/18/21 16:48:00 EDT, Height, 60.2, kg, 11/18/20 16:28:00 EDT, Dry Weight Start Date: 10/14/21 Status: Ordered omeprazole 40 mg oral enteric coated capsule 1 capsule, By Mouth, Daily, as needed, # 30 capsule, 11 Refills, Maintenance, 04/29/21 11:03:00 EST, [facility] #[id number], 150, cm, 02/17/21 9:13:00 EST, Height, 60.2, kg, 11/18/20 16:28:00 EDT, Dry Weight Start Date: 04/29/21 Status: Ordered omeprazole 40 mg oral enteric coated capsule See Instructions, TAKE 1 CAPSULE BY MOUTH TWICE DAILY, # 180 capsule, 0 Refills, [facility] #[id number], 150, cm, 02/17/21 9:13:00 EST, Height, 60.2, kg, 11/18/20 16:28:00 EDT, Dry Weight Start Date: 03/29/21 Status: Ordered predniSONE 10 mg oral tablet See Instructions, For acute migraine. Take with food. Day 1 = 40mg. Day 2 = 30mg. Day 3 = 20mg Day 4 = 10mg, # 10 tablet, 0 Refills, Maintenance, 04/29/21 10:56:00 EST, [facility] #[id number], Partial fill upon patient request if the prescrip... Start Date: 04/29/21 Status: Ordered SUMAtriptan 25 mg oral tablet 1 tablet = 25 mg, By Mouth, Once, At onset of headache. May repeat in 2 hours. Take with naproxen, # 9 tablet, 2 Refills, Soft Stop, 04/29/21 10:53:00 EST, Tablet, [facility] #[id number], Partial fill upon patient request if the prescription is... Start Date: 04/29/21 Status: Ordered SUMAtriptan 50 mg oral tablet 1 tablet = 50 mg, By Mouth, Daily, PRN for migraine headache, may repeat dose after 2 hours up to amax 2 tabs / 24hrs ,no more than 3 doses/week, # 9 tablet, 2 Refills, Acute 08/16/22 11:35:00 EDT, 08/16/21 11:35:00 EDT, Tablet, [facility]... Start Date: 08/16/21 Stop Date: 08/16/22 Status: Ordered Tylenol 325 mg oral capsule 2 capsule = 650 mg, By Mouth, Every 4 hours, PRN as needed for fever, # 90 capsule, 0 Refills, Maintenance, 10/23/20 13:20:00 EDT, Capsule, [id number], Partial fill upon patient request if the [...] on: 07/28/15 Sex Patient Care team information Personnel Name: Banker GARCIA, Felix Lama Address: Address: [address] [place] [address]
--- OUTSIDE RECORDS SUMMARY | 2022-09-09 10:43 | XMS_ITS | Continuity of Care Document ---
Author Name Unknown Organization [facility] Address [address] [place] [address]- Care Team Providers Care Dev Technical Mgr Name Role Veneer Department ManagerFelix Denise MD Primary Care Physician Encounter [facility] [id number] Date(s): 09/23/20 - 11/22/[address] [address] Attending Physician: Felix Denise MD Admitting Physician: Felix Denise MD Referring Physician: Nicole Leal DO Allergies, Adverse Reactions, Alerts Substance Reaction Severity [...] capsule, 0 Refills, Maintenance, 09/23/20 15:01:00 EDT, [facility] #[id number], 1 capsule By Mouth Every 4 hours,PRN: NEEDED, 150, cm, 09/23/20 13:41:00 EDT, Height, 60.8, kg, 08/05/20 11:... Start Date: 09/23/20 Status: Ordered amitriptyline 25 mg oral tablet 50 mg, 2, tablet, By Mouth, Daily at bedtime, # 180 tablet, Refills 3, Tot. Refills 3, Maintenance,10/23/20 13:21:00 EDT, Route to Pharmacy Electronically, [facility] #[id number], 150, cm, 10/23/20 13:15:00 EDT, Height, 60.8, kg, 08/05/20 11:45:... Start Date: 10/23/20 Stop Date: 10/18/21 Status: Ordered Bactrim DS 800 mg-160 mg oral tablet 1 tablet, By Mouth, Every 12 hours, for 7 days, # 14 tablet, 0 Refills, Acute 11/25/20 17:16:00 EDT, 11/18/20 17:16:00 EDT, Tablet, [facility] #[id number], Partial fill upon patient request if the prescription is for a schedule II opioid drug., 1... Start Date: 11/18/20 Stop Date: 11/25/20 Status: Ordered cholecalciferol 2000 intl units oral capsule 1 capsule = 2,000 International_Units, By Mouth, Daily, # 90 capsule, 1 Refills, Maintenance, 01/28/20 7:32:00 EDT, Capsule, [facility] #[id number], 152.4, cm, 01/22/20 11:23:00 EDT, Height, 61.5, kg, 02/21/19 10:49:00 EST, Dry Weight Start Date: 01/28/20 Stop Date: 07/26/20 Status: Ordered Flonase 50 mcg/inh nasal spray 1 sprays, Nares, Both, 2 times a day, # 16 Gm, 2 Refills, Maintenance, 10/23/20 13:21:00 EDT, [place], [facility] #[id number], Partial fill upon patient request if the prescription is for a schedule II opioid drug., 1 sprays Nares, Both 2 times a d... Start Date: 10/23/20 Status: Ordered MiraLax oral powder for reconstitution = 17 Gm, By Mouth, Daily, dissolve in water before taking, # 255 Gm, 0 Refills, Maintenance, 10/23/20 13:22:00 EDT, REC Powder, [facility] #[id number], Partial fill upon patient request if the prescription is for a schedule II opioid drug., 17 Gm... Start Date: 10/23/20 Status: Ordered naproxen 500 mg oral delayed release tablet 1 tablet = 500 mg, By Mouth, 2 times a day, # 60 tablet, 2 Refills, Maintenance, 10/23/20 13:21:00 EDT, EC Tablet, [facility] #[id number], Partial fill upon patient request if the prescription is for a schedule II opioid drug., 150, cm, 10/23/20... Start Date: 10/23/20 Status: Ordered omeprazole 40 mg oral enteric coated capsule 1 capsule, By Mouth, 2 times a day, # 60 capsule, 1 Refills, Maintenance, 10/23/20 13:22:00 EDT, [facility] #[id number], 150, cm, 10/23/20 13:15:00 EDT, Height, 60.8, kg, 08/05/20 11:45:00 EDT, Dry Weight Start Date: 10/23/20 Status: Ordered propranolol 60 mg oral capsule, extended release 60 mg, 1, capsule, By Mouth, Daily, # 30 capsule, Refills 1, Tot. Refills 1, Maintenance, 10/23/20 13:54:00 EDT, Route to Pharmacy Electronically, [facility] #[id number], Partial fill upon patient request if the prescription is for a schedule II... Start Date: 10/23/20 Status: Ordered propranolol 60 mg oral capsule, extended release See Instructions, TAKE 1 CAPSULE BY MOUTH DAILY, # 90 capsule, Refills 0, Maintenance, InstructionsReplace Required Details, Route to Pharmacy Electronically, [facility] #[id number], 150, cm, 10/23/20 13:44:00 EDT, Height, 60.8, kg, 08/05/20 11:... Start Date: 10/23/20 Status: Ordered SUMAtriptan 25 mg oral tablet 1 tablet = 25 mg, By Mouth, Once, At onset of headache. May repeat in 2 hours, # 18 tablet, 0 Refills, Soft Stop, 10/23/20 13:55:00 EDT, Tablet, [facility] #[id number], Partial fill upon patientrequest if the prescription is for a schedule II op... Start Date: 10/23/20 Status: Ordered Tylenol 325 mg oral capsule 2 capsule = 650 mg, By Mouth, Every 4 hours, PRN as needed for fever, # 90 capsule, 0 Refills, Maintenance, 10/23/20 13:20:00 EDT, Capsule, [facility] #[id number], Partial fill upon patient request if the prescription is for a schedule II opioid... Start Date: 10/23/20 Status: Ordered ZyrTEC 10 mg oral tablet 1 tablet = 10 mg, By Mouth, Daily, # 30 tablet, 3 Refills, Maintenance, 10/23/20 13:21:00 EDT, Tablet, [facility] #[id number], 150, cm, 10/23/20 13:15:00 EDT, Height, 60.8, kg, 08/05/20 11:45:00EDT, Dry Weight Start Date: 10/23/20 Status: Ordered Problem List Condition Effective Dates Status Health Status Inform ant Back pain(Confirmed) Active Renal stones(Confirmed) Active Migraine(Confirmed) Active Social History Social History Type Response Smoking Status Never smoker entered on: 07/28/15 Sex Female
--- OUTSIDE RECORDS SUMMARY | 2022-09-09 10:43 | XMS_ITS | Continuity of Care Document ---
Author Name Unknown Organization [facility] Address [address] [place] [address]- Care Team Providers Care Library Circulation Department Chief Name Role Social Contact WorkerFelix Denise MD Primary Care Physician Encounter [facility] Date(s): 06/28/22 - 07/28/[address] [address]- Allergies, Adverse Reactions, Alerts Substance Reaction Severity [...] capsule, 3 Refills, Maintenance, 04/29/21 10:53:00 EST, [facility] #[id number], 1 capsule By Mouth Every 4 hours,PRN: NEEDED, 150, cm, 02/17/21 9:13:00 EST, Height, 60.2, kg, 11/18/20 16:2... Start Date: 04/29/21 Status: Ordered amitriptyline 50 mg oral tablet 1.5 tablet = 75 mg, By Mouth, Daily at supper, # 45 tablet, 6 Refills, Maintenance, 06/10/22 10:30:00 EST, Tablet, [facility] #[id number], Partial fill upon patient request if the [...] 30 tablet, 11 Refills, 04/29/21 11:04:00 EST, [facility] #[id number], 150, cm, 02/17/21 9:13:00 EST, Height, 60.2, kg, 11/18/20 16:28:00 EDT, Dry Weight Start Date: 04/29/21 Status: Ordered drospirenone-ethinyl estradiol 3 mg-0.02 mg oral tablet 1 tablet, By Mouth, Daily, Maintenance Start Date: 08/18/21 Status: Ordered fluticasone 50 mcg/inh nasal spray See Instructions, SHAKE LIQUID AND USE 1 SPRAY IN EACH NOSTRIL TWICE DAILY, # 16 Gm, 0 Refills, [facility] #[id number], 30, SHAKE LIQUID AND USE 1 SPRAY IN EACH NOSTRIL TWICE DAILY, 150, cm, 02/08/21 15:46:00 EDT, Height, 60.2, kg, 11/18/20 16:28... Start Date: 02/15/21 Status: Ordered hydroCHLOROthiazide 12.5 mg oral capsule 1 capsule = 12.5 mg, By Mouth, Daily, # 30 capsule, 2 Refills, Maintenance, 01/19/22 17:34:00 EDT, Capsule, [facility] #[id number], 150, cm, 11/23/21 13:20:00 EDT, Height, 60.2, kg, 11/18/20 16:28:00 EDT, Dry Weight Start Date: 01/19/22 Status: Ordered lidocaine 2% topical gel with applicator 3 application, Topically, 3 times a day, PRN Pain , Mild, # 2 each, 0 Refills, Soft Stop, 04/21/22 8:51:00 EST, Gel, [facility] #[id number], Please give patient 1 month supply of topical lidocaine gel. Any formulatioon/strength that is covered by... Start Date: 04/21/22 Status: Ordered lidocaine 5% topical film 1 patch, Topically, Daily, remove patches after 12 hours, # 30 patch, 0 Refills, Maintenance, 02/10/21 18:52:00 EDT, [facility] #[id number], Partial fill upon patient request if the prescriptionis for a schedule II opioid drug., 1 patch Topicall... Start Date: 02/10/21 Stop Date: 03/12/21 Status: Ordered lidocaine 5% topical film 1 patch, Topically, Daily, REMOVE AFTER 12 HOURS NEEDED FOR PAIN, # 13 patch, 0 Refills, [facility] #[id number], 13, APPLY 1 PATCH TOPICALLY TO AFFECTED AREA EVERY DAY. REMOVE AFTER 12 HOURS NEEDED FOR PAIN, 150, cm, 11/18/20 16:25:00 EDT,... Start Date: 02/06/21 Status: Ordered MiraLax oral powder for reconstitution = 17 Gm, By Mouth, Daily, dissolve in water before taking, # 255 Gm, 1 Refills, Maintenance, 04/21/22 8:56:00 EST, REC Powder, [facility] #[id number], Partial fill upon patient request if the [...] tablet, 2 Refills, Maintenance, 05/12/22 10:47:00 EST, [facility] #[id number], 150, cm, 04/21/22 8:35:00 EST, Height, 60.2, kg, 11/18/20 16:28:00 EDT, DryWeight Start Date: 05/12/22 Status: Ordered omeprazole 40 mg oral enteric coated capsule 1 capsule, By Mouth, Daily, PRN NEEDED, # 30 capsule, 2 Refills, Maintenance, 05/13/22 12:46:00 EST, [facility] #[id number], 150, cm, 04/21/22 8:35:00 EST, Height, 60.2, kg, 11/18/20 16:28:00EDT, Dry Weight Start Date: 05/13/22 Status: Ordered Tylenol 325 mg oral capsule 2 capsule = 650 mg, By Mouth, Every 4 hours, PRN as needed for fever, # 90 capsule, 0 Refills, Maintenance, 10/23/20 13:20:00 EDT, Capsule, [facility] #[id number], Partial fill upon patient request if the [...] Team Personnel Name: Felix Denise MD Position: [facility] Primary Care Physician Member Role: PCP Address: Address: [address] [place] [address]- Name: Lexie Fernandez RN Position: [facility] RN Member Role: Primary Care Nurse Name: Jennifer Fink RN Position: [facility] RN Member Role: Primary Care Nurse Name: Bindu Drake RN Position: [facility] RN Member Role: Primary Care Nurse Name: Thomas Guerrero MD Position: [facility] WINDING LATHE OPERATOR MD Member Role: Lifetime WINDING LATHE OPERATOR Physician Address: Address: [address] [place] [address] [facility], [place] [address]- Care Team Related Persons Name: CLARITZA MENDOZA Address: home [address] [place] [address] Name: IRENE LI Address: home [address] [place] [id number]
--- OUTSIDE RECORDS SUMMARY | 2022-09-09 10:43 | XMS_ITS | Continuity of Care Document ---
Author Name Unknown Organization [facility] Address [address] [place] [id number]- Care Team Providers [facility] Name Role Generator Switchboard OperatorFelix Denise MD Primary Care Physician [phone] Encounter [facility] [place] Date(s): 04/26/21 - 04/27/[address] [address] Discharge Disposition: A-D/C Home Attending Physician: Stephanie Santana MD Admitting Physician: Patrick Jones MD Referring Physician: Not on Staff, Referring [...] capsule, 1 Refills, Maintenance, 02/17/21 9:46:00 EST, [facility] #[id number], 1 capsule By Mouth Every 4 hours,PRN: NEEDED, 150, cm, 02/17/21 9:13:00 EST, Height, 60.2, kg, 11/18/20 16:28... Start Date: 02/17/21 Status: Ordered amitriptyline 25 mg oral tablet 50 mg, 2, tablet, By Mouth, Daily at bedtime, for 90 days, # 180 tablet, Refills 3, Tot. Refills 3,Hard Stop 10/18/21 13:21:00 EDT, 10/23/20 13:21:00 EDT, Route to Pharmacy Electronically, [facility] #[id number], 150, cm, 10/23/20 13:15:00 EDT,... Start Date: 10/23/20 Stop Date: 10/18/21 Status: Ordered cetirizine 10 mg oral tablet 1 tablet, By Mouth, Daily, # 30 tablet, 0 Refills, [facility] #[id number], 150, cm, 02/08/21 15:46:00 EDT, Height, 60.2, kg, 11/18/20 16:28:00 EDT, Dry Weight Start Date: 02/15/21 Status: Ordered fluticasone 50 mcg/inh nasal spray See Instructions, SHAKE LIQUID AND USE 1 SPRAY IN EACH NOSTRIL TWICE DAILY, # 16 Gm, 0 Refills, [facility] #[id number], 30, SHAKE LIQUID AND USE 1 SPRAY IN EACH NOSTRIL TWICE DAILY, 150, cm, 02/08/21 15:46:00 EDT, Height, 60.2, kg, 11/18/20 16:28... Start Date: 02/15/21 Status: Ordered lidocaine 5% topical film 1 patch, Topically, Daily, remove patches after 12 hours, # 30 patch, 0 Refills, Maintenance, 02/10/21 18:52:00 EDT, [facility] #[id number], Partial fill upon patient request if the prescriptionis for a schedule II opioid drug., 1 patch Topicall... Start Date: 02/10/21 Stop Date: 03/12/21 Status: Ordered lidocaine 5% topical film 1 patch, Topically, Daily, REMOVE AFTER 12 HOURS NEEDED FOR PAIN, # 13 patch, 0 Refills, [facility] #[id number], 13, APPLY 1 PATCH TOPICALLY TO AFFECTED AREA EVERY DAY. REMOVE AFTER 12 HOURS NEEDED FOR PAIN, 150, cm, 11/18/20 16:25:00 EDT,... Start Date: 02/06/21 Status: Ordered MiraLax oral powder for reconstitution = 17 Gm, By Mouth, Daily, dissolve in water before taking, # 255 Gm, 0 Refills, Maintenance, 10/23/20 13:22:00 EDT, REC Powder, [facility] #[id number], Partial fill upon patient request if the prescription is for a schedule II opioid drug., 17 Gm... Start Date: 10/23/20 Status: Ordered omeprazole 40 mg oral enteric coated capsule 1 capsule, By Mouth, 2 times a day, # 60 capsule, 1 Refills, Maintenance, 10/23/20 13:22:00 EDT, [facility] #[id number], 150, cm, 10/23/20 13:15:00 EDT, Height, 60.8, kg, 08/05/20 11:45:00 EDT, Dry Weight Start Date: 10/23/20 Status: Ordered omeprazole 40 mg oral enteric coated capsule See Instructions, TAKE 1 CAPSULE BY MOUTH TWICE DAILY, # 180 capsule, 0 Refills, [facility] #[id number], 150, cm, 02/17/21 9:13:00 EST, Height, 60.2, kg, 11/18/20 16:28:00 EDT, Dry Weight Start Date: 03/29/21 Status: Ordered SUMAtriptan 25 mg oral tablet 1 tablet = 25 mg, By Mouth, Once, At onset of headache. May repeat in 2 hours, # 1 tablet, 2 Refills, Soft Stop, 02/17/21 9:46:00 EST, Tablet, [facility] #[id number], Partial fill upon patient request if the prescription is for a schedule II opio... Start Date: 02/17/21 Status: Ordered Tylenol 325 mg oral capsule 2 capsule = 650 mg, By Mouth, Every 4 hours, PRN as needed for fever, # 90 capsule, 0 Refills, Maintenance, 10/23/20 13:20:00 EDT, Capsule, [facility] #[id number], Partial fill upon patient request if the prescription is for a schedule II opioid... Start Date: 10/23/20 Status: Ordered Problem List Condition Effective Dates Status Health Status Inform ant Back pain(Confirmed) Active Renal stones(Confirmed) Active Migraine(Confirmed) Active Vital Signs Most recent to oldest [Reference Range]: 1 2 3 Weight 60 kg (04/26/21 10:57 PM) Oxygen Saturation [94-100 %] 99 % (04/27/21 8:37 AM) 98 % (04/27/21 4:07 AM) 100 % (04/26/21 10:57 PM) Pulse Rate [55-90 bpm] 82 bpm (04/27/21 8:37 AM) 94 bpm *H* (04/27/21 4:07 AM) 80 bpm (04/26/21 10:57 PM) Blood Pressure [90-138/55-84 mm Hg] 141/94mm Hg *H* (04/27/21 8:37 AM) 131/86mm Hg (04/27/21 4:07 AM) 132/88mm Hg (04/26/21 10:57 PM) Respiratory Rate [16-30 br/min] 18 br/min (04/27/21 8:37 AM) 18 br/min (04/27/21 4:07 AM) 18 br/min (04/26/21 10:57 PM) Temperature [96.8-100.4 DegF] 97.7 DegF (04/27/21 8:37 AM) 98.2 DegF (04/27/21 4:07 AM) 98.6 DegF (04/26/21 10:57 PM) Mode of Delivery (Oxygen) Room air (04/27/21 8:37 AM) Room air (04/27/21 4:07 AM) Room air (04/26/21 10:57 PM) Blood pressure sites Arm, right (04/27/21 8:37 AM) Arm, left (04/27/21 4:07 AM) Arm, right (04/26/21 10:57 PM) Temperature Route Oral (04/27/21 8:37 AM) Oral (04/27/21 4:07 AM) Oral (04/26/21 10:57 PM) Weight Obtained Via Bed scale (04/26/21 10:57 PM) Social History Social History Type Response Smoking Status Never smoker entered on: 07/28/15 Sex
--- OUTSIDE RECORDS SUMMARY | 2022-09-09 10:43 | XMS_ITS | Continuity of Care Document ---
Author Name Unknown Organization [facility] Address [address] [place] [address]- Care Team Providers Care Service Writer Name Role Bag FillerFelix wills MD Primary Care Physician Encounter [facility] [place] Date(s): 11/18/20 - 12/18/20 [facility] [address] [place], [place] [address] Attending Physician: AdmLance barger Admitting Physician: Admtr, [...] capsule, 0 Refills, Maintenance, 09/23/20 15:01:00 EDT, [facility] #[id number], 1 capsule By Mouth Every 4 hours,PRN: NEEDED, 150, cm, 09/23/20 13:41:00 EDT, Height, 60.8, kg, 08/05/20 11:... Start Date: 09/23/20 Status: Ordered amitriptyline 25 mg oral tablet 50 mg, 2, tablet, By Mouth, Daily at bedtime, # 180 tablet, Refills 3, Tot. Refills 3, Maintenance,10/23/20 13:21:00 EDT, Route to Pharmacy Electronically, [facility] #[id number], 150, cm, 10/23/20 13:15:00 EDT, Height, 60.8, kg, 08/05/20 11:45:... Start Date: 10/23/20 Stop Date: 10/18/21 Status: Ordered cholecalciferol 2000 intl units oral capsule 1 capsule = 2,000 International_Units, By Mouth, Daily, # 90 capsule, 1 Refills, Maintenance, 01/28/20 7:32:00 EDT, Capsule, [facility] #[id number], 152.4, cm, 01/22/20 11:23:00 EDT, Height, 61.5, kg, 02/21/19 10:49:00 EST, Dry Weight Start Date: 01/28/20 Stop Date: 07/26/20 Status: Ordered Flonase 50 mcg/inh nasal spray 1 sprays, Nares, Both, 2 times a day, # 16 Gm, 2 Refills, Maintenance, 10/23/20 13:21:00 EDT, [place], [facility] #[id number], Partial fill upon patient request if the prescription is for a schedule II opioid drug., 1 sprays Nares, Both 2 times a d... Start Date: 10/23/20 Status: Ordered MiraLax oral powder for reconstitution = 17 Gm, By Mouth, Daily, dissolve in water before taking, # 255 Gm, 0 Refills, Maintenance, 10/23/20 13:22:00 EDT, REC Powder, [facility] #[id number], Partial fill upon patient request if the prescription is for a schedule II opioid drug., 17 Gm... Start Date: 10/23/20 Status: Ordered naproxen 500 mg oral delayed release tablet 1 tablet = 500 mg, By Mouth, 2 times a day, # 60 tablet, 2 Refills, Maintenance, 10/23/20 13:21:00 EDT, EC Tablet, [facility] #[id number], Partial fill upon patient request if the prescription is for a schedule II opioid drug., 150, cm, 10/23/20... Start Date: 10/23/20 Status: Ordered omeprazole 40 mg oral enteric coated capsule 1 capsule, By Mouth, 2 times a day, # 60 capsule, 1 Refills, Maintenance, 10/23/20 13:22:00 EDT, [facility] #[id number], 150, cm, 10/23/20 13:15:00 EDT, Height, 60.8, kg, 08/05/20 11:45:00 EDT, Dry Weight Start Date: 10/23/20 Status: Ordered propranolol 60 mg oral capsule, extended release 60 mg, 1, capsule, By Mouth, Daily, # 30 capsule, Refills 1, Tot. Refills 1, Maintenance, 10/23/20 13:54:00 EDT, Route to Pharmacy Electronically, [facility] #[id number], Partial fill upon patient request if the prescription is for a schedule II... Start Date: 10/23/20 Status: Ordered propranolol 60 mg oral capsule, extended release See Instructions, TAKE 1 CAPSULE BY MOUTH DAILY, # 90 capsule, Refills 0, Maintenance, InstructionsReplace Required Details, Route to Pharmacy Electronically, [facility] #[id number], 150, cm, 10/23/20 13:44:00 EDT, Height, 60.8, kg, 08/05/20 11:... Start Date: 10/23/20 Status: Ordered SUMAtriptan 25 mg oral tablet 1 tablet = 25 mg, By Mouth, Once, At onset of headache. May repeat in 2 hours, # 18 tablet, 0 Refills, Soft Stop, 10/23/20 13:55:00 EDT, Tablet, [facility] #[id number], Partial fill upon patientrequest if the prescription is for a schedule II op... Start Date: 10/23/20 Status: Ordered Tylenol 325 mg oral capsule 2 capsule = 650 mg, By Mouth, Every 4 hours, PRN as needed for fever, # 90 capsule, 0 Refills, Maintenance, 10/23/20 13:20:00 EDT, Capsule, [facility] #[id number], Partial fill upon patient request if the prescription is for a schedule II opioid... Start Date: 10/23/20 Status: Ordered ZyrTEC 10 mg oral tablet 1 tablet = 10 mg, By Mouth, Daily, # 30 tablet, 3 Refills, Maintenance, 10/23/20 13:21:00 EDT, Tablet, [facility] #[id number], 150, cm, 10/23/20 13:15:00 EDT, Height, 60.8, kg, 08/05/20 11:45:00EDT, Dry Weight Start Date: 10/23/20 Status: Ordered Problem List Condition Effective Dates Status Health Status Inform ant Back pain(Confirmed) Active Renal stones(Confirmed) Active Migraine(Confirmed) Active Social History Social History Type Response Smoking Status Never smoker entered on: 07/28/15 Sex Female
--- OUTSIDE RECORDS SUMMARY | 2022-09-09 10:43 | XMS_ITS | Continuity of Care Document ---
Author Name Unknown Organization [facility] Address [address] [place] [address]- Care Team Providers Care Oxygen Plant Operator Name Role Phone Prior Wesly GRAYSON Primary Care Physician Encounter [facility] [place] Date(s): 11/07/19 - 12/07/[address] [address]- [facility] Attending Physician: AdmLance barger Admitting Physician: AdmtrLance Referring Physician: Admtr, Ar8 Allergies, Adverse Reactions, Alerts Substance Reaction Severity Status NKA Active Immunizations Given and Recorded Vaccine Date Status Refusal Reason influenza virus vaccine, inactivated 04/28/16 Give n influenza virus vaccine, inactivated 02/18/15 Give n tetanus/diphtheria/pertussis, acel(Tdap) 07/16/15 Given Medications amitriptyline 25 mg oral tablet See Instructions, 1 tablet at bedtime for 1 week, then increase to 2 tablets; if you have been taking 2 tablets nightly, continue that dose unchanged, # 180 tablet, Refills 0, Tot. Refills 0, Maintenance, 11/29/19 16:18:00 EDT, Instructions Replace R... Start Date: 11/29/19 Status: Ordered cholecalciferol 1000 intl units oral tablet 1 tablet = 1,000 International_Units, By Mouth, Daily, # 30 tablet, 2 Refills, Maintenance, 10/03/19 13:04:00 EDT, [facility] #[id number], 152.4, cm, 04/09/19 11:38:00 EST, Height, 61.5, [...] 0 Refills, Maintenance, 08/08/19 15:59:00 EDT, Tablet, [facility] #[id number], 152.4, cm, 04/09/19 11:38:00 EST, Height, 61.5, [...] 3 Refills, Maintenance, 09/30/19 14:57:00 EDT, Tablet, [facility] #[id number], 152.4, cm, 04/09/19 11:38:00 EST, Height, 61.5, kg, 02/21/19 10:49:00 EST, Dry Weight Start Date: 09/30/19 Status: Ordered Problem List Condition Effective Dates Status Health Status Inform ant Back pain(Confirmed) Active Renal stones(Confirmed) Active Migraine(Confirmed) Active Social History Social History Type Response Smoking Status Never smoker entered on: 07/28/15 Sex Female
--- OUTSIDE RECORDS SUMMARY | 2022-09-09 10:43 | XMS_ITS | Continuity of Care Document ---
Author Name Unknown Organization [facility] Address [address] [place] [address]- Care Team Providers Care Network Security Administrator Name Role Phone Prior Wesly GRAYSON Primary Care Physician [place] [facility] [place]/25/[place] - 07/17/[address] [address]- [facility] Discharge Disposition: A-D/C Home Attending Physician: Wesly Snell Admitting Physician: Wesly Snell Referring Physician: Radha Reveles CNM Allergies, Adverse Reactions, Alerts Substance Reaction [...]
--- OUTSIDE RECORDS SUMMARY | 2022-09-09 10:43 | XMS_ITS | Continuity of Care Document ---
Author Name Unknown Organization [facility] Address [address] [place] [address]- Care Team Providers Care Armoured Car Escort Name Role Patient Support AssistantFelix Denise MD Primary Care Physician Encounter [facility] Date(s): 08/05/20 - 09/04/20 [facility] [address] [place], [place] [address] Attending Physician: Lance Harris Admitting Physician: AdmLance barger Referring Physician: AdmtrColin8 Allergies, Adverse Reactions, Alerts Substance Reaction Severity [...] PRN NEEDED, # 20 capsule, 0 Refills, Acute, 06/25/20 14:52:00 EDT, [facility] #[id number], 3, TAKE 1 CAPSULE BY MOUTH EVERY 4 HOURS NEEDED, 150, cm, 05/11/20 10:36:00 EST, Height, 64.5, kg, 05/02/20 18:46... Start Date: 06/25/20 Status: Ordered amitriptyline 25 mg oral tablet 50 mg, 2, tablet, By Mouth, Daily at bedtime, # 180 tablet, Refills 3, Tot. Refills 3, Maintenance,03/22/20 17:53:00 EST, Route to Pharmacy Electronically, [facility] #[id number], 152.4, cm, 01/22/20 11:23:00 EDT, Height, 61.5, kg, 02/21/19 10:4... Start Date: 03/22/20 Stop Date: 03/17/21 Status: Ordered Triangle Saline Mist 0.65% nasal spray 2 sprays, Nares, Both, 4 times a day, # 45 mL, 0 Refills, Maintenance, 03/19/20 10:33:00 EST, [facility] #[id number], Partial fill upon patient request if the prescription is for a schedule II opioid drug., 2 sprays Nares, Both 4 times a day, 152... Start Date: 03/19/20 Status: Ordered cholecalciferol 2000 intl units oral capsule 1 capsule = 2,000 International_Units, By Mouth, Daily, # 90 capsule, 1 Refills, Maintenance, 01/28/20 7:32:00 EDT, Capsule, [facility] #[id number], 152.4, cm, 01/22/20 11:23:00 EDT, Height, 61.5, kg, 02/21/19 10:49:00 EST, Dry Weight Start Date: 01/28/20 Stop Date: 07/26/20 Status: Ordered dextromethorphan-guaifenesin 10 mg-200 mg/5 mL oral liquid 5 mL, By Mouth, Every 6 hours, PRN for cough, # 200 mL, 0 Refills, Maintenance, 03/19/20 10:35:00 EST, Liquid, [facility] #[id number], Partial fill upon patient request if the prescription is for a schedule II opioid drug., 5 mL By Mouth Every 6... Start Date: 03/19/20 Status: Ordered lidocaine 5% topical film 1 patch, Topically, Daily, PRN Pain , Mild, remove after 12 hours, # 13 each, 0 Refills, Maintenance, 05/11/20 11:28:00 EST, Film, [facility] #[id number], Partial fill upon patient request if the prescription is for a schedule II opioid drug., 1... Start Date: 05/11/20 Status: Ordered MiraLax oral powder for reconstitution = 17 Gm, By Mouth, Daily, dissolve in water before taking, # 255 Gm, 0 Refills, Maintenance, 05/04/20 12:19:00 EST, REC Powder, [facility] #[id number], Partial fill upon patient request if the prescription is for a schedule II opioid drug., 17 Gm... Start Date: 05/04/20 Status: Ordered naproxen 500 mg oral delayed release tablet 1 tablet = 500 mg, By Mouth, 2 times a day, # 60 tablet, 2 Refills, Maintenance, 05/11/20 11:26:00 EST, EC Tablet, [facility] #[id number], Partial fill upon patient request if the prescription is for a schedule II opioid drug., 150, cm, 05/11/20... Start Date: 05/11/20 Status: Ordered omeprazole 40 mg oral enteric coated capsule 1 capsule, By Mouth, 2 times a day, # 60 capsule, 1 Refills, Maintenance, 08/14/20 8:32:00 EDT, [facility] #[id number], 150, cm, 08/05/20 11:45:00 EDT, Height, 60.8, kg, 08/05/20 11:45:00 EDT, Dry Weight Start Date: 08/14/20 Status: Ordered ondansetron 4 mg oral tablet, disintegrating 1 tablet = 4 mg, By Mouth, Every 8 hours, PRN as needed for nausea/vomiting, # 30 tablet, 0 Refills, Maintenance, 04/28/20 5:09:00 EST, DIS Tablet, [facility] #[id number], Partial fill upon patient request if the prescription is for a schedule II... Start Date: 04/28/20 Stop Date: 05/05/20 Status: Ordered Tylenol 325 mg oral capsule 2 capsule = 650 mg, By Mouth, Every 4 hours, PRN as needed for fever, # 90 capsule, 0 Refills, Maintenance, 03/19/20 10:31:00 EST, Capsule, [facility] #[id number], Partial fill upon patient request if the prescription is for a schedule II opioid... Start Date: 03/19/20 Status: Ordered ZyrTEC 10 mg oral tablet 1 tablet = 10 mg, By Mouth, Daily, # 30 tablet, 3 Refills, Maintenance, 09/30/19 14:57:00 EDT, Tablet, [facility] #[id number], 152.4, cm, 04/09/19 11:38:00 EST, Height, 61.5, kg, 02/21/19 10:49:00 EST, Dry Weight Start Date: 09/30/19 Status: Ordered Problem List Condition Effective Dates Status Health Status Inform ant Back pain(Confirmed) Active Renal stones(Confirmed) Active Migraine(Confirmed) Active Social History Social History Type Response Smoking Status Never smoker entered on: 07/28/15 Sex Female
--- OUTSIDE RECORDS SUMMARY | 2022-09-09 10:44 | XMS_ITS | Continuity of Care Document ---
Author Name Unknown Organization [facility] Address [address] [place] [address]- Care Team Providers Care Portfolio Administrator Name Role Monument SetterFelix Denise MD Primary Care Physician [phone] Encounter [facility] [place] [id number] Date(s): 04/21/22 - 05/21/[address] [address]- Attending Physician: Admtr, Ar8 Admitting Physician: Admtr, [...] capsule, 3 Refills, Maintenance, 04/29/21 10:53:00 EST, [facility] #[id number], 1 capsule By Mouth Every 4 hours,PRN: NEEDED, 150, cm, 02/17/21 9:13:00 EST, Height, 60.2, kg, 11/18/20 16:2... Start Date: 04/29/21 Status: Ordered amitriptyline 50 mg oral tablet 2 tablet = 100 mg, By Mouth, Daily at supper, NEEDS NEURO FOLLOW UP, # 60 tablet, 0 Refills, Maintenance, 04/07/22 18:34:00 EST, Tablet, [facility] #[id number], Partial fill upon patient requestif the prescription [...] 30 tablet, 11 Refills, 04/29/21 11:04:00 EST, [facility] #[id number], 150, cm, 02/17/21 9:13:00 EST, Height, 60.2, kg, 11/18/20 16:28:00 EDT, Dry Weight Start Date: 04/29/21 Status: Ordered drospirenone-ethinyl estradiol 3 mg-0.02 mg oral tablet 1 tablet, By Mouth, Daily, Maintenance Start Date: 08/18/21 Status: Ordered fluticasone 50 mcg/inh nasal spray See Instructions, SHAKE LIQUID AND USE 1 SPRAY IN EACH NOSTRIL TWICE DAILY, # 16 Gm, 0 Refills, [facility] #[id number], 30, SHAKE LIQUID AND USE 1 SPRAY IN EACH NOSTRIL TWICE DAILY, 150, cm, 02/08/21 15:46:00 EDT, Height, 60.2, kg, 11/18/20 16:28... Start Date: 02/15/21 Status: Ordered hydroCHLOROthiazide 12.5 mg oral capsule 1 capsule = 12.5 mg, By Mouth, Daily, # 30 capsule, 2 Refills, Maintenance, 01/19/22 17:34:00 EDT, Capsule, [facility] #[id number], 150, cm, 11/23/21 13:20:00 EDT, Height, 60.2, kg, 11/18/20 16:28:00 EDT, Dry Weight Start Date: 01/19/22 Status: Ordered lidocaine 2% topical gel with applicator 3 application, Topically, 3 times a day, PRN Pain , Mild, # 2 each, 0 Refills, Soft Stop, 04/21/22 8:51:00 EST, Gel, [facility] #[id number], Please give patient 1 month supply of topical lidocaine gel. Any formulatioon/strength that is covered by... Start Date: 04/21/22 Status: Ordered lidocaine 5% topical film 1 patch, Topically, Daily, remove patches after 12 hours, # 30 patch, 0 Refills, Maintenance, 02/10/21 18:52:00 EDT, [facility] #[id number], Partial fill upon patient request if the prescriptionis for a schedule II opioid drug., 1 patch Topicall... Start Date: 02/10/21 Stop Date: 03/12/21 Status: Ordered lidocaine 5% topical film 1 patch, Topically, Daily, REMOVE AFTER 12 HOURS NEEDED FOR PAIN, # 13 patch, 0 Refills, [facility] #[id number], 13, APPLY 1 PATCH TOPICALLY TO AFFECTED AREA EVERY DAY. REMOVE AFTER 12 HOURS NEEDED FOR PAIN, 150, cm, 11/18/20 16:25:00 EDT,... Start Date: 02/06/21 Status: Ordered MiraLax oral powder for reconstitution = 17 Gm, By Mouth, Daily, dissolve in water before taking, # 255 Gm, 1 Refills, Maintenance, 04/21/22 8:56:00 EST, REC Powder, [facility] #[id number], Partial fill upon patient request if the [...] tablet, 2 Refills, Maintenance, 05/12/22 10:47:00 EST, [facility] #[id number], 150, cm, 04/21/22 8:35:00 EST, Height, 60.2, kg, 11/18/20 16:28:00 EDT, DryWeight Start Date: 05/12/22 Status: Ordered nitroglycerin 0.4% rectal ointment 3 applications, Rectally, Every 12 hours, # 2 each, 0 Refills, Acute 05/23/22 8:56:00 EST, :55:00 EST, [facility] #[id number], Please give patient 1 month supply of topical nitroglycerin. Any formulatioon/strength that is covered by her... Start Date: 04/21/22 Stop Date: 05/23/22 Status: Ordered omeprazole 40 mg oral enteric coated capsule 1 capsule, By Mouth, Daily, PRN NEEDED, # 30 capsule, 2 Refills, Maintenance, 05/13/22 12:46:00 EST, [facility] #[id number], 150, cm, 04/21/22 8:35:00 EST, Height, 60.2, kg, 11/18/20 16:28:00EDT, Dry Weight Start Date: 05/13/22 Status: Ordered predniSONE 10 mg oral tablet See Instructions, For acute migraine. Take with food. Day 1 = 40mg. Day 2 = 30mg. Day 3 = 20mg Day 4 = 10mg, # 10 tablet, 0 Refills, Maintenance, 04/29/21 10:56:00 EST, [facility] #[id number], Partial fill upon patient request if the prescrip... Start Date: 04/29/21 Status: Ordered SUMAtriptan 25 mg oral tablet 1 tablet = 25 mg, By Mouth, Once, At onset of headache. May repeat in 2 hours. Take with naproxen, # 9 tablet, 2 Refills, Soft Stop, 04/29/21 10:53:00 EST, Tablet, [facility] #[id number], Partial fill upon patient request if the prescription is... Start Date: 04/29/21 Status: Ordered SUMAtriptan 50 mg oral tablet 1 tablet = 50 mg, By Mouth, Daily, PRN for migraine headache, may repeat dose after 2 hours up to amax 2 tabs / 24hrs ,no more than 3 doses/week, # 9 tablet, 2 Refills, Acute 08/16/22 11:35:00 EDT, 08/16/21 11:35:00 EDT, Tablet, [facility] Start Date: 08/16/21 Stop Date: 08/16/22 Status: Ordered Tylenol 325 mg oral capsule 2 capsule = 650 mg, By Mouth, Every 4 hours, PRN as needed for fever, # 90 capsule, 0 Refills, Maintenance, 10/23/20 13:20:00 EDT, Capsule, [facility] #[id number], Partial fill upon patient request if the [...] Team Personnel Name: Felix Denise MD Position: [facility] Primary Care Physician Member Role: PCP Address: Address: [address] [place] [id number]- Name: Lexie Fernandez RN Position: [facility] RN Member Role: Primary Care Nurse Name: Jennifer Fink RN Position: [facility] RN Member Role: Primary Care Nurse Name: Bindu Drake RN Position: [facility] RN Member Role: Primary Care Nurse Name: Thomas Guerrero MD Position: [facility] [employer] MD Member Role: [employer] Physician Address: Address: [address] [place] [address] [facility], [place] [address]- Care Team Related Persons Name: CLARITZA MENDOZA Address: home [address] [place] [address] Name: IRENE LI Address: [address] [address]
--- OUTSIDE RECORDS SUMMARY | 2022-09-09 10:44 | XMS_ITS | Continuity of Care Document ---
Author Name Unknown Organization [facility] Address [address] [place] [address]- Care Team Providers Care Slot Tag Inserter Name Role Phone Prior Wesly GRAYSON Primary Care Physician [place] [facility] [place] - 05/02/[address] [address]- [facility] Attending Physician: Radha Reveles CNM Admitting Physician: Radha Reveles CNM Allergies, Adverse Reactions, [...]
[2022-09-09] MEDS: Ondansetron ODT 4 MG TAB.RAPDIS TRANSLINGU (10:50)
[2022-09-09] MEDS: Acetaminophen 325 MG TABLET 975 MG PO (10:50)
[2022-09-09 11:13] LABS: IDNOW Serial# 6674DD1D; Strep A Nucleic Acid Negative (Negative)
[2022-09-09 11:41] LABS: Influenza A PCR NEGATIVE (Negative); Influenza B PCR NEGATIVE (Negative); Resp Syncy Virus RNA Qual PCR NEGATIVE (Negative); SARS COV2 PCR INHOUSE NEGATIVE (Negative)
== END 2022-09-09 12:10 | disposition home or self-care (01) ==
PROVIDERS: Registered Nurse Emergency; Emergency Provider Emergency Medicine
DX: B34.9 Viral infection, unspecified (principal); J02.9 Acute pharyngitis, unspecified; R50.9 Fever, unspecified; Z20.822 Contact with and (suspected) exposure to COVID-19; Z20.828 Contact with and (suspected) exposure to other viral communicable diseases
CPT/HCPCS: 0241U; 87651; 99283; 99284

== ENCOUNTER 2023-04-28 11:38 | Emergency (ER) | payer OTHER, SELFPAY ==
--- NOTE | ~2023-04-28 | CT_ITS ---
EXAMINATION: CT HEAD WITHOUT CONTRAST CLINICAL INFORMATION: Headache COMPARISON: None available. TECHNIQUE: Contiguous axial imaging was performed from the skull base to vertex without intravenous administration of contrast. This CT examination was performed using dose optimization techniques as appropriate, variously including the following: *Automated exposure control *Adjustment of mA and/or kV according to patient size (this includes techniques or standardized protocols for targeted exams where dose is matched to indication/reason for exam; i.e. extremities or head) *Use of iterative reconstruction technique DLP: 608 mGy-cm FINDINGS: There is no acute intra-axial, extra-axial bleed, masses or midline shift. The lateral ventricles are symmetrical in size and configuration without enlargement. The green to white matter differentiation is maintained normal. No abnormality seen in the posterior fossa. Bone windows reveal no calvarial abnormality. There is no scalp soft tissue abnormality. There is mild mucoperiosteal thickening anterior and middle ethmoid sinuses. Rest the visualized paranasal sinuses and mastoid air cells are well-aerated. CT/CT head/brain wo IV con IMPRESSION: 1. No acute intracranial process seen. 2. Chronic bilateral ethmoid sinus inflammatory changes.
--- NOTE | ~2023-04-28 | XR_ITS ---
EXAMINATION: XR CHEST CLINICAL INFORMATION: Headache COMPARISON: None available. TECHNIQUE: 2 views of the chest were obtained. FINDINGS: No significant abnormality is noted involving the heart, lungs, mediastinum, bony thorax or soft tissues. XR/XR chest 2V IMPRESSION: Unremarkable examination.
[2023-04-28 11:47] VITALS: BP 157/108; PULSE 110; RESP 18; TEMP 36.8; O2SAT 100; BMI 25.4
--- NOTE | 2023-04-28 11:48 | ED_ITS ---
HPI - General Adult General Chief complaint: Headache Stated complaint: High BP, dizziness Related Data Previous Rx's Medication Instructions Recorded acetaminophen 325 mg capsule 650 mg (2 x 325 mg) PO Q6H PRN 09/09/22 fever or pain #20 caps ondansetron 4 mg disintegrating 4 mg PO Q8H PRN nausea and 09/09/22 tablet vomiting #12 tabs Allergies Allergy/AdvReac Type Severity Reaction Status Date / Time oxycodone Allergy Itching Verified 04/28/23 11:47 [facility] Past Medical History Onset Date is defined in the Problem List Problems that require an onset date and time if occurred within 24 hrs of arrival to the ED Aortic Dissection and Rupture; Neurologic impairment; Cardiopulmonary Arrest; Endotracheal Intubation; Insertion or Replacement of Mechanical Circulatory Assist Device Medical History (Updated 06/12/23 @ 16:16 by KENAN Escobar) No known health problems Social History Social History Alcohol intake: never Advance Directives: No Advance Directives Information Provided: No Physical Exam ED Vital Signs: BMI result Body Mass Index 25.4 Course Course Course Narrative: RME-11:50am 37yoF presenting to the ED with complaints of 2 weeks of Fatigue, migraine headaches, high blood pressure. Patient denies a history of high blood pressure. Was seen at urgent care and told to measure her blood pressure until able to see PCP. Patient reports her BP hasd been 150/100 in the past 2 days. PCP at [facility] has Appointment on Monday Coming up. Nasal congestion noted in triage patient. +Nausea. Patient denies dizziness, change in vision, chest pain or shortness of breath, vomiting, black or bloody stools, abdominal pain or any other symptoms complaints or concerns. Plan: Labs, EKG, chest x-ray, CT scan and COVID swab ordered at this time. Patient is stable to go back to the waiting room. Medications Administered Discontinued Medications Generic Name Dose Route Start Last Admin Trade Name Freq PRN Reason Stop Dose Admin Acetaminophen 975 mg 04/28/23 12:28 04/28/23 12:31 Acetaminophen 325 Mg Tablet PO 04/28/23 12:29 975 mg ONCE ONE Administration Ondansetron HCl 4 mg 04/28/23 12:28 04/28/23 12:31 Ondansetron Odt 4 Mg Tab.Rapdis TRANSLINGU 04/28/23 12:29 4 mg ONCE ONE Administration Medical Decision Making Lab Data 04/28/23 12:24 04/28/23 12:24 Labs: Lab Results 04/28/23 Range/Units 12:24 WBC 8.3 (4.8-10.8) X10*3/uL RBC 3.96 L (4.20-5.50) X10*6/uL Hgb 11.4 L (12.0-16.0) g/dl Hct 34.3 L (37.0-47.0) % MCV 86.6 (80.0-98.0) fL MCH 28.8 (27.0-33.0) pg MCHC 33.2 (31.0-35.0) g/dl RDW 14.1 (11.0-16.0) % Plt Count 273 (160-400) X10*3/uL MPV 9.9 (9.4-12.3) fL Immature Gran % (Auto) 0.1 (0.0-0.4) % Neut % (Auto) 60.6 (45-73) % Lymph % (Auto) 21.4 (20-40) % Giles % (Auto) 7.7 (2-11) % Eos % (Auto) 9.6 H (0-4) % Baso % (Auto) 0.6 (0-2) % Lymph # (Auto) 1.8 (1.2-4.9) X10*3/uL Giles # (Auto) 0.6 (0.1-1.2) X10*3/uL Eos # (Auto) 0.8 H (0.0-0.4) X10*3/uL Baso # (Auto) 0.1 (0.0-0.2) X10*3/uL Abs Immat Gran (auto) 0.01 (0.00-0.03) X10*3/uL Absolute Neuts (auto) 5.0 (2.0-8.3) x10*3/uL Absolute Nucleated RBC 0.000 (0.0-0.012) X10*3/uL Nucleated RBC % (auto) 0.0 (0.0-0.2) /100WBC PT 11.4 (11.1-13.3) SEC INR 0.9 (0.9-1.1) Sodium 141 (135-145) mmol/L Potassium 4.0 (3.3-5.1) mmol/L Chloride 106 (96-108) mmol/L Carbon Dioxide 28 (22-29) mmol/L Anion Gap 11 L (12-20) BUN 13 (9-16) mg/dL Creatinine 0.81 (0.5-1.4) mg/dL Estim Creat Clear Calc 74.9 Estimated GFR > 60 Random Glucose 80 (60-115) mg/dL Calcium 9.4 (8.4-10.2) mg/dL Magnesium 1.9 (1.6-2.6) mg/dL Total Bilirubin 0.4 (0.0-1.0) mg/dL AST 13 (5-31) U/L ALT 13 (0-31) U/L Alkaline Phosphatase 68 (39-117) U/L Troponin I High Sens < 2.7 (<3.5-17.0) ng/L Total Protein 7.0 (6.5-8.0) g/dL Albumin 4.2 (3.5-5.0) g/dL Beta HCG, Quant < 2 mIU/mL Influenza Type A (PCR) NEGATIVE (Negative) Influenza Type B (PCR) NEGATIVE (Negative) RSV RNA Qual (PCR) NEGATIVE (Negative) SARS-CoV-2 RNA (RT-PCR) NEGATIVE (Negative) Discharge Plan Discharge Clinical Impression: Headache Patient Disposition: Left W/O Completing Treatment Prescriptions: No Action ondansetron 4 mg tablet,disintegrating 4 mg PO Q8H PRN (Reason: nausea and vomiting) Qty: 12 0RF acetaminophen 325 mg capsule 650 mg PO Q6H PRN (Reason: fever or pain) Qty: 20 0RF Discharge Date/Time: 04/28/23 18:15
--- NOTE | 2023-04-28 11:51 | ECG_ITS ---
Test Reason : HEADACHE Blood Pressure : / mmHG Vent. Rate : 096 BPM Atrial Rate : 096 BPM P-R Int : 136 ms QRS Dur : 078 ms QT Int : 326 ms P-R-T Axes : 038 016 -12 degrees QTc Int : 411 ms Normal sinus rhythm Nonspecific T wave abnormality Abnormal ECG No previous ECGs available Referred By: Radha Wiseman Electronically Signed By:MY MUÑOZ
[2023-04-28 12:30] LABS: MANUAL DIFF FLAG NO
[2023-04-28] MEDS: Ondansetron ODT 4 MG TAB.RAPDIS TRANSLINGU (12:31)
[2023-04-28] MEDS: Acetaminophen 325 MG TABLET 975 MG PO (12:31)
[2023-04-28 12:32] LABS: Basophils Absolute Auto 0.1 X10*3/uL (0.0-0.2); Basophils Percent Auto 0.6 % (0-2); Eosinophils Absolute Auto 0.8 X10*3/uL (0.0-0.4); Eosinophils Percent Auto 9.6 % (0-4); Hematocrit 34.3 % (37.0-47.0); Hemoglobin 11.4 g/dl (12.0-16.0); Imm Gran Abs Auto 0.01 X10*3/uL (0.00-0.03); Imm Gran Pct Auto 0.1 % (0.0-0.4); Lymphocytes Absolute Auto 1.8 X10*3/uL (1.2-4.9); Lymphocytes Percent Auto 21.4 % (20-40); Mean Corpuscular HGB Conc 33.2 g/dl (31.0-35.0); Mean Corpuscular Hemoglobin 28.8 pg (27.0-33.0); Mean Corpuscular Volume 86.6 fL (80.0-98.0); Mean Platelet Volume 9.9 fL (9.4-12.3); Monocytes Absolute Auto 0.6 X10*3/uL (0.1-1.2); Monocytes Percent Auto 7.7 % (2-11); Neutrophils Percent Auto 60.6 % (45-73); Platelet Count 273 X10*3/uL (160-400); Red Blood Count 3.96 X10*6/uL (4.20-5.50); Red Cell Distribution Width 14.1 % (11.0-16.0); White Blood Count 8.3 X10*3/uL (4.8-10.8)
[2023-04-28 12:37] LABS: INTERNATIONAL NORM RATIO 0.9 (0.9-1.1); Prothrombin Time 11.4 SEC (11.1-13.3)
[2023-04-28 12:48] LABS: Alanine Aminotransferase 13 U/L (0-31); Albumin Level 4.2 g/dL (3.5-5.0); Alkaline Phosphatase 68 U/L (39-117); Anion Gap 11 (12-20); Aspartate Amino Transferase 13 U/L (5-31); Bilirubin Total 0.4 mg/dL (0.0-1.0); Blood Urea Nitrogen 13 mg/dL (9-16); Calcium 9.4 mg/dL (8.4-10.2); Carbon Dioxide 28 mmol/L (22-29); Chloride 106 mmol/L (96-108); Creatinine Clr Calc Pharmacy 74.9; Estimated Glomerular Filt Rate > 60; Glucose Random 80 mg/dL (60-115); Magnesium 1.9 mg/dL (1.6-2.6); Sodium 141 mmol/L (135-145)
[2023-04-28 12:56] LABS: Troponin-I High Sensitivity < 2.7 ng/L (<3.5-17.0)
[2023-04-28 12:57] LABS: HCG Quantitative < 2 mIU/mL
[2023-04-28 13:09] LABS: Influenza A PCR NEGATIVE (Negative); Influenza B PCR NEGATIVE (Negative); Resp Syncy Virus RNA Qual PCR NEGATIVE (Negative); SARS COV2 PCR INHOUSE NEGATIVE (Negative)
== END 2023-04-28 18:15 | disposition left against medical advice (07) ==
PROVIDERS: Physician Assistant Medical; Emergency Provider Emergency Medicine
DX: R42 Dizziness and giddiness (principal); Z11.52 Encounter for screening for COVID-19; Z20.828 Contact with and (suspected) exposure to other viral communicable diseases
CPT/HCPCS: 0241U; 36415; 70450; 71046; 80053; 83735; 84484; 84702; 85025; 85610; 93005; 99283; 99284

== ENCOUNTER → 2023-04-28 11:51 | Outpatient (BNV) | payer OTHER, SELFPAY | PROVIDERS: Emergency Provider Emergency Medicine; Visit Provider Internal Medicine | DX: R51.9 Headache, unspecified (principal) | CPT/HCPCS: 93010 ==